=== PATIENT | male | born 1945 | race Caucasian/White ===

== ENCOUNTER 2019-07-01 12:05 | Outpatient (CLI) | payer MEDICARE, SELFPAY ==
[2019-07-01 12:17] LABS: Basophils Absolute Auto 0.02 K/mm3 (0.00-0.10); Basophils Percent Auto 0.3 % (0.0-1.0); Eosinophils Absolute Auto 0.09 K/mm3 (0.02-0.50); Eosinophils Percent Auto 1.2 % (1.0-6.0); Hematocrit 42.9 % (37.0-46.0); Hemoglobin 14.5 g/dL (12.4-15.3); Immature Granulocyte Absolute 0.05 K/mm3 (0.00-0.00); Immature Granulocyte Percent A 0.7 % (0.0-0.0); Lymphocytes Absolute Auto 1.18 K/mm3 (1.10-4.50); Lymphocytes Percent Auto 15.4 % (18.0-42.0); Mean Corpuscular HGB Conc 33.8 g/dL (32.0-36.0); Mean Corpuscular Hemoglobin 28.4 pg (27.0-31.0); Mean Corpuscular Volume 84.1 fL (78.0-102.0); Mean Platelet Volume 9.8 fl (8.7-11.0); Monocytes Absolute Auto 0.73 K/mm3 (0.10-0.90); Monocytes Percent Auto 9.5 % (2.0-11.0); Neutrophils Absolute Auto 5.6 K/mm3 (1.7-7.2); Neutrophils Percent Auto 72.9 % (50.0-70.0); Platelet Count Result 194 K/mm3 (150-420); Red Cell Distribution Width 13.7 % (11.6-14.4); White Blood Count 7.7 K/mm3 (4.8-10.8)
[2019-07-01 13:15] LABS: Alanine Aminotransferase 35 U/L (16-63); Albumin Level 3.5 g/dL (3.4-5.0); Alkaline Phosphatase 101 U/L (46-116); Aspartate Amino Transferase 17 U/L (15-37); Bilirubin Direct 0.2 mg/dL (0-0.2); Bilirubin,Total 1.1 mg/dL (0.00-1.00); Total Protein 6.7 g/dL (6.4-8.2)
== END 2019-07-01 12:06 | disposition home or self-care (01) ==
LOC: CHSLAB 12:08
PROVIDERS: PCP Family Medicine; Visit Provider Internal Medicine Gastroenterology
DX: Z79.899 Other long term (current) drug therapy (principal)
CPT/HCPCS: 36415; 80076; 85025

== ENCOUNTER 2019-10-20 09:42 | Outpatient (CLI) | payer MEDICARE, SELFPAY ==
[2019-10-20 10:57] LABS: Alanine Aminotransferase 25 U/L (16-63); Albumin Level 3.5 g/dL (3.4-5.0); Alkaline Phosphatase 67 U/L (46-116); Anion Gap 9 mmol/L (8-16); Aspartate Amino Transferase 21 U/L (15-37); Blood Urea Nitrogen 12 mg/dL (7-18); Calcium 8.5 mg/dL (8.5-10.1); Carbon Dioxide 26 mmol/L (21-32); Chloride 106 mmol/L (98-108); Estimated Glomerular Filt Rate > 60; Glucose 157 mg/dL (70-99); Osmolality Calculated 294 mOsm/kg (285-295); Potassium 4.6 mmol/L (3.5-5.1); Sodium 141 mmol/L (136-145); Total Protein 6.7 g/dL (6.4-8.2)
[2019-10-20 11:00] LABS: Hemoglobin A1C 7.1 % (<5.7)
== END 2019-10-20 09:43 | disposition home or self-care (01) ==
LOC: CHSLAB 09:44
PROVIDERS: PCP Family Medicine; Visit Provider Family Medicine
DX: E11.9 Type 2 diabetes mellitus without complications (principal); R17 Unspecified jaundice; E78.5 Hyperlipidemia, unspecified
CPT/HCPCS: 36415; 80053; 83036

== ENCOUNTER 2020-12-14 08:12 | Outpatient (CLI) | payer MEDICARE, SELFPAY ==
[2020-12-14 08:29] LABS: Basophils Absolute Auto 0.02 K/mm3 (0.00-0.10); Basophils Percent Auto 0.4 % (0.0-1.0); Eosinophils Absolute Auto 0.09 K/mm3 (0.02-0.50); Eosinophils Percent Auto 1.8 % (1.0-6.0); Hematocrit 38.7 % (37.0-46.0); Hemoglobin 12.6 g/dL (12.4-15.3); Immature Granulocyte Absolute 0.01 K/mm3 (0.00-0.00); Immature Granulocyte Percent A 0.2 % (0.0-0.0); Lymphocytes Absolute Auto 1.53 K/mm3 (1.10-4.50); Lymphocytes Percent Auto 31.3 % (18.0-42.0); Mean Corpuscular HGB Conc 32.6 g/dL (32.0-36.0); Mean Corpuscular Hemoglobin 26.1 pg (27.0-31.0); Mean Corpuscular Volume 80.3 fL (78.0-102.0); Mean Platelet Volume 10.7 fl (8.7-11.0); Monocytes Absolute Auto 0.58 K/mm3 (0.10-0.90); Monocytes Percent Auto 11.9 % (2.0-11.0); Neutrophils Absolute Auto 2.7 K/mm3 (1.7-7.2); Neutrophils Percent Auto 54.4 % (50.0-70.0); Platelet Count Result 178 K/mm3 (150-420); Red Blood Count 4.82 M/mm3 (4.70-6.10); Red Cell Distribution Width 15.3 % (11.6-14.4); White Blood Count 4.9 K/mm3 (4.8-10.8)
[2020-12-14 08:58] LABS: Hemoglobin A1C 7.4 % (<5.7)
[2020-12-14 09:20] LABS: Ferritin 23 ng/mL (26-388)
== END 2020-12-14 08:13 | disposition home or self-care (01) ==
LOC: CHSLAB 08:18
PROVIDERS: PCP Family Medicine; Visit Provider Nurse Practitioner Family
DX: D50.0 Iron deficiency anemia secondary to blood loss (chronic) (principal); Z79.899 Other long term (current) drug therapy
CPT/HCPCS: 36415; 82728; 83036; 85025

== ENCOUNTER 2021-02-12 10:39 | Outpatient (CLI) | payer MEDICARE, SELFPAY ==
[2021-02-12 11:00] LABS: Hematocrit 42.3 % (37.0-46.0); Hemoglobin 14.3 g/dL (12.4-15.3); Mean Corpuscular HGB Conc 33.8 g/dL (32.0-36.0); Mean Corpuscular Volume 79.8 fL (78.0-102.0); Mean Platelet Volume 10.4 fl (8.7-11.0); Platelet Count Result 207 K/mm3 (150-420); Red Cell Distribution Width 17.1 % (11.6-14.4); White Blood Count 5.8 K/mm3 (4.8-10.8)
[2021-02-12 11:13] LABS: Hemoglobin A1C 7.2 % (<5.7)
[2021-02-12 11:42] LABS: Alanine Aminotransferase 29 U/L (16-63); Albumin Level 3.6 g/dL (3.4-5.0); Alkaline Phosphatase 79 U/L (46-116); Anion Gap 11 mmol/L (8-16); Aspartate Amino Transferase 15 U/L (15-37); Bilirubin,Total 0.8 mg/dL (0.00-1.00); Blood Urea Nitrogen 16 mg/dL (7-18); Calcium 8.8 mg/dL (8.5-10.1); Carbon Dioxide 26 mmol/L (21-32); Chloride 104 mmol/L (98-108); Cholesterol 194 mg/dL (0-200); Estimated Glomerular Filt Rate > 60; Ferritin 50 ng/mL (26-388); Glucose 136 mg/dL (70-99); HDL Direct 64 mg/dL (40-60); Iron 73 ug/dL (65-175); LDL Cholesterol Calculated 111 mg/dL (<130); Osmolality Calculated 295 mOsm/kg (285-295); Percent Iron Saturation 20 % (12-57); Potassium 4.3 mmol/L (3.5-5.1); Sodium 141 mmol/L (136-145); Triglycerides 97 mg/dL (0-150)
== END 2021-02-12 10:40 | disposition home or self-care (01) ==
LOC: CHSLAB 10:41
PROVIDERS: PCP Family Medicine; Visit Provider Nurse Practitioner
DX: D50.9 Iron deficiency anemia, unspecified (principal); M47.816 Spondylosis without myelopathy or radiculopathy, lumbar region; E78.9 Disorder of lipoprotein metabolism, unspecified; Z00.00 Encounter for general adult medical examination without abnormal findings; Z12.5 Encounter for screening for malignant neoplasm of prostate; E11.9 Type 2 diabetes mellitus without complications
CPT/HCPCS: 36415; 80053; 80061; 82728; 83036; 83540; 83550; 84153; 85027; G0103

== ENCOUNTER 2021-03-05 12:38 | Outpatient (CLI) | payer MEDICARE, SELFPAY ==
[2021-03-05 12:59] LABS: Creatinine Urine 27.26 mg/dL (40-278); MALB Creatinine Ratio 47.6 mg/g (0-30); Microalbumin Urine Random < 13.0 mg/L
== END 2021-03-05 12:39 | disposition home or self-care (01) ==
LOC: CHSLAB 12:39
PROVIDERS: PCP Family Medicine; Visit Provider Family Medicine
DX: E11.9 Type 2 diabetes mellitus without complications (principal)
CPT/HCPCS: 82043

== ENCOUNTER 2021-10-17 09:23 | Outpatient (CLI) | payer MEDICARE, SELFPAY ==
[2021-10-17 09:55] LABS: Hemoglobin A1C 6.2 % (<5.7)
[2021-10-17 10:39] LABS: Cholesterol 117 mg/dL (0-200); HDL Direct 50 mg/dL (40-60); LDL Cholesterol Calculated 49 mg/dL (<130); Triglycerides 91 mg/dL (0-150); Vitamin B12 439 pg/mL (193-986)
[2021-10-25 10:51] LABS: Testosterone Total 584 ng/dL (250-1100)
== END 2021-10-17 09:24 | disposition home or self-care (01) ==
PROVIDERS: PCP Family Medicine; Visit Provider Family Medicine
DX: E78.5 Hyperlipidemia, unspecified (principal); E11.9 Type 2 diabetes mellitus without complications; E53.8 Deficiency of other specified B group vitamins
CPT/HCPCS: 36415; 80061; 82607; 83036; 84403

== ENCOUNTER 2022-02-19 08:28 | Outpatient (CLI) | payer MEDICARE, SELFPAY ==
[2022-02-19 08:42] LABS: Basophils Absolute Auto 0.02 K/mm3 (0.00-0.10); Basophils Percent Auto 0.4 % (0.0-1.0); Eosinophils Absolute Auto 0.09 K/mm3 (0.02-0.50); Eosinophils Percent Auto 1.7 % (1.0-6.0); Hematocrit 40.8 % (37.0-46.0); Hemoglobin 14.2 g/dL (12.4-15.3); Immature Granulocyte Absolute 0.01 K/mm3 (0.00-0.00); Immature Granulocyte Percent A 0.2 % (0.0-0.0); Lymphocytes Absolute Auto 1.67 K/mm3 (1.10-4.50); Lymphocytes Percent Auto 32.2 % (18.0-42.0); Mean Corpuscular HGB Conc 34.8 g/dL (32.0-36.0); Mean Corpuscular Hemoglobin 30.9 pg (27.0-31.0); Mean Corpuscular Volume 88.7 fL (78.0-102.0); Monocytes Absolute Auto 0.69 K/mm3 (0.10-0.90); Monocytes Percent Auto 13.3 % (2.0-11.0); Neutrophils Absolute Auto 2.7 K/mm3 (1.7-7.2); Neutrophils Percent Auto 52.2 % (50.0-70.0); Platelet Count Result 203 K/mm3 (150-420); White Blood Count 5.2 K/mm3 (4.8-10.8)
[2022-02-19 09:08] LABS: Hemoglobin A1C 6.4 % (<5.7)
[2022-02-19 09:30] LABS: Alanine Aminotransferase 25 U/L (16-63); Albumin Level 3.6 g/dL (3.4-5.0); Alkaline Phosphatase 63 U/L (46-116); Anion Gap 8 mmol/L (8-16); Aspartate Amino Transferase 18 U/L (15-37); Blood Urea Nitrogen 12 mg/dL (7-18); Calcium 8.6 mg/dL (8.5-10.1); Carbon Dioxide 27 mmol/L (21-32); Chloride 108 mmol/L (98-108); Cholesterol 135 mg/dL (0-200); Estimated Glomerular Filt Rate > 60; Glucose 111 mg/dL (70-99); HDL Direct 56 mg/dL (40-60); LDL Cholesterol Calculated 63 mg/dL (<130); Osmolality Calculated 296 mOsm/kg (285-295); Potassium 4.1 mmol/L (3.5-5.1); Prostate Specific Antigen 0.8 ng/mL (< OR = 4.0); Sodium 143 mmol/L (136-145); Total Protein 6.5 g/dL (6.4-8.2); Triglycerides 81 mg/dL (0-150)
== END 2022-02-19 08:29 | disposition home or self-care (01) ==
LOC: CHSLAB 08:30
PROVIDERS: PCP Family Medicine; Visit Provider Physician Assistant Medical
DX: E11.9 Type 2 diabetes mellitus without complications (principal); Z12.5 Encounter for screening for malignant neoplasm of prostate
CPT/HCPCS: 36415; 80053; 80061; 83036; 84153; 85025; G0103

== ENCOUNTER 2022-06-02 09:29 | Outpatient (CLI) | payer MEDICARE, SELFPAY ==
[2022-06-02 10:32] LABS: Prostate Specific Antigen 1.2 ng/mL (< OR = 4.0)
== END 2022-06-02 09:30 | disposition home or self-care (01) ==
LOC: CHSLAB 09:31
PROVIDERS: PCP Family Medicine; Visit Provider Family Medicine
DX: Z12.5 Encounter for screening for malignant neoplasm of prostate (principal)
CPT/HCPCS: 36415; 84153; G0103

== ENCOUNTER 2022-12-16 12:09 | Outpatient (CLI) | payer MEDICARE, SELFPAY ==
--- NOTE | ~2022-12-16 | XR_ITS ---
Clinical Indication: Cough PA and lateral views of the chest: Comparison: 07/18/2016 Findings: There is vague hazy opacity in the right upper lobe. Stable calcified lymph node or nodule along the right paratracheal stripe.. Cardiomediastinal silhouette is within normal limits. Bones an d soft tissues are unremarkable. Impression: Hazy vague opacity in the right upper lobe, suspicious for focal pneumonia. Reviewed, dictated and finalized at location M. Impression: Hazy vague opacity in the right upper lobe, suspicious for focal pneumonia.
[2022-12-16 12:27] LABS: Basophils Absolute Auto 0.03 K/mm3 (0.00-0.10); Basophils Percent Auto 0.4 % (0.0-1.0); Eosinophils Absolute Auto 0.02 K/mm3 (0.02-0.50); Eosinophils Percent Auto 0.3 % (1.0-6.0); Hematocrit 40.2 % (37.0-46.0); Hemoglobin 13.6 g/dL (12.4-15.3); Immature Granulocyte Absolute 0.03 K/mm3 (0.00-0.00); Immature Granulocyte Percent A 0.4 % (0.0-0.0); Lymphocytes Absolute Auto 1.52 K/mm3 (1.10-4.50); Lymphocytes Percent Auto 21.3 % (18.0-42.0); Mean Corpuscular HGB Conc 33.8 g/dL (32.0-36.0); Mean Corpuscular Hemoglobin 30.6 pg (27.0-31.0); Mean Corpuscular Volume 90.5 fL (78.0-102.0); Mean Platelet Volume 9.5 fl (8.7-11.0); Monocytes Absolute Auto 0.65 K/mm3 (0.10-0.90); Monocytes Percent Auto 9.1 % (2.0-11.0); Neutrophils Absolute Auto 4.9 K/mm3 (1.7-7.2); Neutrophils Percent Auto 68.5 % (50.0-70.0); Platelet Count Result 320 K/mm3 (150-420); Red Blood Count 4.44 M/mm3 (4.70-6.10); Red Cell Distribution Width 13.5 % (11.6-14.4); White Blood Count 7.2 K/mm3 (4.8-10.8)
[2022-12-16 13:16] LABS: Alanine Aminotransferase 25 U/L (16-63); Albumin Level 3.3 g/dL (3.4-5.0); Alkaline Phosphatase 65 U/L (46-116); Anion Gap 9 mmol/L (8-16); Aspartate Amino Transferase 19 U/L (15-37); Blood Urea Nitrogen 18 mg/dL (7-18); Carbon Dioxide 27 mmol/L (21-32); Chloride 106 mmol/L (98-108); Cholesterol 134 mg/dL (0-200); Estimated Glomerular Filt Rate > 60; Glucose 107 mg/dL (70-99); HDL Direct 58 mg/dL (40-60); LDL Cholesterol Calculated 65 mg/dL (<130); Osmolality Calculated 295 mOsm/kg (285-295); Potassium 4.3 mmol/L (3.5-5.1); Prostate Specific Antigen 1.5 ng/mL (< OR = 4.0); Sodium 142 mmol/L (136-145); Total Protein 6.4 g/dL (6.4-8.2); Triglycerides 55 mg/dL (0-150)
== END 2022-12-16 12:10 | disposition home or self-care (01) ==
LOC: CHSLAB 12:11
PROVIDERS: PCP Family Medicine; Visit Provider Family Medicine
DX: E11.9 Type 2 diabetes mellitus without complications (principal); E78.00 Pure hypercholesterolemia, unspecified; K51.90 Ulcerative colitis, unspecified, without complications; Z12.5 Encounter for screening for malignant neoplasm of prostate; R05.9 Cough, unspecified; R91.8 Other nonspecific abnormal finding of lung field
CPT/HCPCS: 36415; 71046; 80053; 80061; 84153; 85025; G0103

== ENCOUNTER 2024-05-20 10:05 | Outpatient (CLI) | payer MEDICARE, SELFPAY ==
[2024-05-20 10:18] LABS: Basophils Absolute Auto 0.01 K/mm3 (0.00-0.10); Basophils Percent Auto 0.2 % (0.0-1.0); Eosinophils Absolute Auto 0.03 K/mm3 (0.02-0.50); Eosinophils Percent Auto 0.5 % (1.0-6.0); Hematocrit 37.3 % (37.0-46.0); Hemoglobin 12.2 g/dL (12.4-15.3); Immature Granulocyte Absolute 0.03 K/mm3 (0.00-0.00); Immature Granulocyte Percent A 0.5 % (0.0-0.0); Lymphocytes Absolute Auto 1.09 K/mm3 (1.10-4.50); Lymphocytes Percent Auto 16.7 % (18.0-42.0); Mean Corpuscular HGB Conc 32.7 g/dL (32-36); Mean Corpuscular Hemoglobin 29.6 pg (27.0-31.0); Mean Corpuscular Volume 90.5 fL (78.0-102.0); Mean Platelet Volume 9.9 fl (8.7-11.0); Monocytes Percent Auto 9.2 % (2.0-11.0); Neutrophils Absolute Auto 4.77 K/mm3 (1.70-7.20); Neutrophils Percent Auto 72.9 % (50.0-70.0); Platelet Count Result 194 K/mm3 (150-420); Red Blood Count 4.12 M/mm3 (4.70-6.10); Red Cell Distribution Width 14.4 % (11.6-14.4); White Blood Count 6.5 K/mm3 (4.8-10.8)
[2024-05-20 10:28] LABS: Hemoglobin A1C 6.2 % (<5.7)
[2024-05-20 11:06] LABS: Alanine Aminotransferase 17 U/L (16-63); Albumin Level 3.7 g/dL (3.4-5.0); Alkaline Phosphatase 91 U/L (46-116); Anion Gap 9 mmol/L (4-12); Aspartate Amino Transferase 13 U/L (15-37); Bilirubin,Total 1.5 mg/dL (0.00-1.00); Blood Urea Nitrogen 16 mg/dL (7-18); Calcium 8.7 mg/dL (8.5-10.1); Carbon Dioxide 28 mmol/L (21-32); Chloride 106 mmol/L (98-108); Cholesterol 138 mg/dL (0-200); Estimated Glomerular Filt Rate > 60; Glucose 107 mg/dL (70-99); HDL Direct 75 mg/dL (40-60); LDL Cholesterol Calculated 57 mg/dL (<130); Osmolality Calculated 297 mOsm/kg (285-295); Potassium 4.1 mmol/L (3.5-5.1); Sodium 143 mmol/L (136-145); Total Protein 6.6 g/dL (6.4-8.2); Triglycerides 28 mg/dL (0-150)
--- OUTSIDE RECORDS SUMMARY | 2024-05-20 11:12 | XMS_ITS | Clinical Summary ---
Author Organization [facility] Address [address] [place] [address] Care Team Providers Care Antisqueak Filler Name Role Phone Leonard Cage MD Primary Care Provider [phone] Allergies No known active allergies Medications metFORMIN 500 MG tablet Take 500 mg by mouth 2 (two) times daily with meals. Active atorvastatin 80 MG tablet Take 80 mg by mouth daily. Active OZEMPIC, 0.25 OR 0.5 MG/DOSE, 2 MG/3ML injection (PEN) INJECT 0.5MG under the skin every week 08/27/2023 Active Active Problems Problem Noted Date Diagnosed Date Other ulcerative colitis wit h rectal bleeding ([facility]) 01/05/2017 Immunizations Name Administration Dates Next Due Tdap (Boostrix) 10/15/2023 Family History Medical History Relation Comments Diabetes Brother Diabetes Father Heart Disease Father Diabetes Mother Heart Disease Mother Diabetes Sister Diabetes Son Relation Status Comments Brother Father Mother Sister Son Social History Tobacco Use Types Packs/Day Years Used Date Smoking Tobacco: Former Cigarettes 2 25 1 03/1962 - 01/1988 Smokeless Tobacco: Never Alcohol Use Standard Drinks/Week Comments Yes 3.3 (1 standard drink = 0.6 oz p ure alcohol) 2 to 4 cans a month Sex and Gender Information Value Date Recorded Sex Assigned at Not on file Legal Sex Male 4:27 PM CDT Gender Identity Not on file Sexual Orientation Not on file Last Filed Vital Signs Vital Sign Reading Time Taken Comments Blood Pressure 199/83 10/15/2023 8:15 PM CDT Pulse 86 10/15/2023 7:53 PM CDT Temperature 37.3 C (99.1 F) 10/15/2023 7:53 PM CDT Respiratory Rate 18 10/15/2023 7:53 PM CDT Oxygen Saturation 99% 10/15/2023 8:15 PM CDT Inhaled Oxygen Concentration - - Weight 102.5 kg (225 lb 15.5 oz) 10/15/2023 7:53 PM CDT Height 177.8 cm (5' 10 ) 10/15/2023 7:53 PM CDT Body Mass Index 32.42 10/15/2023 7:53 PM CDT Plan of Treatment Health Maintenance Due Date Last Done Comments Hepatitis C 1963 Annual Medicare Wellness Visit 2009 Zoster Vaccines (2 of 3) 02/24/2017 017, 10/17/2011 Pneumococcal Vaccine: 65+ Years (2 of 2 - PCV) 10/16/2017 10/16/2016, 10/17/2015 RSV Immunization or 60+ Years (1 - 1-dose 75+ series) 05/10/2019 COVID-19 Vaccine (2 - 2023-2 5 season) 2023 05/25/2020 Influenza Adult (#1) 2023 12/26/2020, 12/07/2018, 12/30/2016 DTaP, Tdap and Td Vaccines ( 3 - Td or Tdap) 10/14/2033 10/15/2023, 12/03/2017 Colorectal Cancer Screening Colonoscopy (10 Years) Discontinued 05/04/2018 Meningococcal B Vaccine Aged Out No l onger eligible based on patient's age to complete this topic Meningococcal Vaccine Aged Out No sarmad ricardo eligible based on patient's age to complete this topic RSV Immunizations Under 20 Months Aged Out No longer eligible based on patient's age to complete this topic Procedures Procedure Name Priority Date/Time Associated Diagnosis Comments COLONOSCOPY Routine 05/04/2018 10:57 AM MORTUARY BEAUTICIAN from Last 3 Months or Most Recently Relevant to Health Maintenance Insurance [facility] Care Teams Antisqueak Filler Relationship Specialty Start Date End Date Leonard Cage MD PCP - General 09/16/16
--- OUTSIDE RECORDS SUMMARY | 2024-05-20 11:12 | XMS_ITS | Encounter Summary ---
Author Organization [facility] Facility Care Team Providers Care Datawarehouse Developer Name Role Phone Leonard Cage MD Primary Care Provider [phone] Leonard Cage MD Primary Care Provider [phone] Leonard Cage MD Unavailable [phone] Luis Alejandro DPM Primary Care Provider [phone] Encounter Details Date Type Department Care Team (Latest Contact Info) Description 05/14/2018 Orders Only [facility] CLINCONV ProviderKay MD [address] [place] [address] Social History Tobacco Use Types Packs/Day Years Used Date Smoking Tobacco: Never Assessed Sex and Gender Information Value Date Recorded Sex Assigned at Not on file Legal Sex Male 12:24 AM TUBE KNITTER Gender Identity Male 06/09/2021 8:03 AM CDT Sexual Orientation Bisexual 06/09/2021 8: 03 AM CDT documented as of this encounter Plan of Treatment Not on file documented as of this encounter Procedures Procedure Name Priority Date/Time Associated Diagnosis Comments COLONOSCOPY - SCAN 05/14/2018 12 :00 AM CDT SCAN - LABS 05/14/2018 12:00 AM CDT documented in this encounter Results * COLONOSCOPY - SCAN (05/14/2018 12:00 AM CDT) Narrative 05/14/2018 12:00 AM CDT Ordered by an unspecified provider. Historical Provider Final Res ult * SCAN - LABS (05/14/2018 12:00 AM CDT) Narrative 05/14/2018 12:00 AM CDT Ordered by an unspecified provider. Historical Provider Final Res ult documented in this encounter Visit Diagnoses Not on filedocumented in this encounter Care Teams Datawarehouse Developer Relationship Specialty Start Date End Date Leonard Cage MD PCP - General 07/07/17 08/04/18 Leonard Cage MD PCP - General Family Medicine 08/05/18 10/27/18 Luis Alejandro DPM [address] [place] [address] PCP - General Orthotics 10/28/18 03/31/19 Leonard Cage MD 08/05/18 08/05/18 documented as of this encounter
--- OUTSIDE RECORDS SUMMARY | 2024-05-20 11:12 | XMS_ITS | Encounter Summary ---
Author Organization [facility] Facility Care Team Providers Care Restaurant Host/Hostess Name Role Phone Leonard Cage MD Primary Care Provider [phone] Leonard Cage MD Primary Care Provider [phone] Leonard Cage MD Unavailable [phone] Luis Alejandro DPM Primary Care Provider [phone] Encounter Details Date Type Department Care Team (Latest Contact Info) Description 01/25/2018 Orders Only [facility] CLINCONV Provider, MD Kay [address] [place] [address] Social History Tobacco Use Types Packs/Day Years Used Date Smoking Tobacco: Never Assessed Sex and Gender Information Value Date Recorded Sex Assigned at Not on file Legal Sex Male 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 Historical Provider Final Res ult * SCAN - LABS (01/25/2018 12:00 AM ANALOG CIRCUIT DESIGNER) Narrative 01/25/2018 12:00 AM ANALOG CIRCUIT DESIGNER Ordered by an unspecified provider. us Historical Provider MD Samayoa Res ult documented in this encounter Visit Diagnoses Not on filedocumented in this encounter Care Teams Restaurant Host/Hostess Relationship Specialty Start Date End Date Leonard Cage MD PCP - General 07/07/17 08/04/18 Leonard Cage MD PCP - General Family Medicine 08/05/18 10/27/18 Luis Alejandro DPM [address] [place] [address] PCP - General Orthotics 10/28/18 03/31/19 Leonard Cage MD 08/05/18 08/05/18 documented as of this encounter
--- OUTSIDE RECORDS SUMMARY | 2024-05-20 11:12 | XMS_ITS ---
Author Organization Unknown Address [address] [place] [phone] Phone Care Team Providers Care Clinical Research Nurse Name Role Phone BARBARA Null Attending Unavailable CARRIE MORRIS Primary Unavailable Immunization Immunization Date Status Additional Notes Code Code System Tdap 12/03/2017 Completed 115 CVX Tdap 10/15/2023 Completed 115 CVX Influenza, high-dose, quadrivalent, PF 01/02/2020 Completed 197 CVX Influenza, adjuvanted, quadrivalent, PF 12/26/2020 Completed 205 CVX COVID-19 vaccine, vector-nr, rS-Ad26, PF, 0.5 mL 05/25/2020 Completed 212 CVX Results BEDSIDE GLUCOSE - Collect Da te/Time: 12/10/2023 10:54 [facility] ID: [id number] [address] [place] [address], [id number] LOINC: 99205-4 Test Value Unit Reference Range Code Code System Flag BEDSIDE GLUCOSE 140 mg/dl L=74 H=106 55554-8 LOINC H BEDSIDE GLUCOSE - Collect Da te/Time: 12/10/2023 09:51 [facility] ID: [id number] [address] [place] [address], [id number] LOINC: 29515-3 Test Value Unit Reference Range Code Code System Flag BEDSIDE GLUCOSE 130 mg/dl L=74 H=106 04547-5 LOINC H Social History Type Status Start Date End Date Code Code Syst em Smoking History Former smoker 2323286 SNOMED CT Sex Male Vital Signs Vital Sign Value Unit Carbon Value Carbon Unit Date/Time Recent/Initial? Code Code System Body Mass Index 26.97 kg/m2 12/10/2023 08:49 Most Recent 79740 -5 LOINC Body Mass Index 28.27 kg/m2 12/03/2023 13:34 Initial 41227 -5 LOINC Systolic Blood Pressure 189 mm[Hg] 12/10/2023 08:53 Initial 8480- 6 LOINC Diastolic Blood Pressure 90 mm[Hg] 12/10/2023 08:53 Initial 8462- 4 LOINC Body Surface Area 2.05 m2 12/10/2023 08:49 Most Recent 3140- 1 INC Body Surface Area 2.10 m2 12/03/2023 13:34 Initial 3140- 1 LOINC Height 177.800 0 cm 70.00 in 12/10/2023 08:49 Most Recent 8302- 2 LOINC Height 177.800 0 cm 70.00 in 12/03/2023 13:34 Initial 8302- 2 INC O2 Saturation 100 % 2023 08:53 Initial 06010 -5 INC Pulse 56.0 /min 12/10/2023 08:53 Initial 8867- 4 INC Respiration 16 /min 12/10/19 08:53 Initial 9279- 1 INC Temperature 36.7 Basia 98.0 F 12/10/19 08:53 Initial 8310- 5 INC Weight 85.28 kg 188.00 lbs 12/10/2023 08:49 Most Recent 67010 -7 INC Weight 89.36 kg 197.00 lbs 12/03/2023 13:34 Initial 96724 -7 [facility] Medications Medication Start Date End Date Route Frequency Dose Code Code System Medication Instructions Home Meds Atorvastatin Calcium 80MG Oral Tablet 06/08/2020 Unknown ORAL ONCE A DAY 80 MILLIGRAMS 509794 RxNorm TAKE 80 MILLIGRAMS ORAL ONCE A DAY Vitamin D3 10 MCG Oral Tablet 08/27/2023 Unknown ORAL ONCE A DAY 10 MCG 246614 RxNorm TAKE 10 MCG ORAL ONCE A DAY Vitamin C 1000MG Oral Tablet 12/10/2023 Unknown ORAL ONCE A DAY 1000 MILLIGRAMS 799939 RxNorm TAKE 1000 MILLIGRAMS ORAL ONCE A DAY metFORMIN HCl 500MG Oral Tablet 12/10/2023 Unknown ORAL ONCE A DAY 500 MILLIGRAMS 228405 RxNorm TAKE 500 MILLIGRAMS ORAL ONCE A DAY Hospital Discharge Instructions Should you have any questions prior to discharge, please contact a member of your healthcare team. If you have left the hospital and have any questions, please contact your primary care physician. Reason For Referral No Data Found Procedures Procedure Name Date Status Code Code Syste m Sigmoidoscopy, flexible; lashawn gnostic, including collection of specimen(s) b 12/10/2023 completed 28009 CPT Allergies and Adverse Reactions Allergy Substance Reaction Severity Start Date Concern Status Co de Code System ASPIRIN Active 1191 RxNorm ASPIRIN Active 1191 RxNorm QUINAPRIL Active 42983 RxNorm QUINAPRIL Active 05965 RxNorm No Known Drug Allergies Active 863684823 SNOMED-CT No Known Drug Allergies Active 464365257 SNOMED-CT No Known Allergies Active 021847451 SNMister Mario-CT Plan of Treatment Colonoscopy 08/27/2023 Sigmoidoscopy Flexible 12/10/2023 Encounters Encounter Diagnosis Start Date Code Code Sys tem Ulcerative colitis, unspecified, without complications 12/10/2023 SNOMED-CT Personal Care Team Section Performer Name Performer Role Active Date Inactive Da te
--- OUTSIDE RECORDS SUMMARY | 2024-05-20 11:12 | XMS_ITS | Encounter Summary ---
Author Organization [facility] Facility Care Team Providers Care Carding Utility Tender Name Role Phone Leonard Cage MD Primary Care Provider [phone] Leonard Cage MD Primary Care Provider [phone] Leonard Cage MD Unavailable [phone] Luis Alejandro DPM Primary Care Provider [phone] Encounter Details Date Type Department Care Team (Latest Contact Info) Description 04/19/2018 Orders Only [facility] CLINCONV ProviderKay MD [address] [place] [address] Social History Tobacco Use Types Packs/Day Years Used Date Smoking Tobacco: Never Assessed Sex and Gender Information Value Date Recorded Sex Assigned at Not on file Legal Sex Male 12:24 AM CLERGY MEMBER Gender Identity Male 06/09/2021 8:03 AM CDT Sexual Orientation Bisexual 06/09/2021 8: 03 AM CDT documented as of this encounter Plan of Treatment Not on file documented as of this encounter Procedures Procedure Name Priority Date/Time Associated Diagnosis Comments SCAN - LABS 04/23/2018 12:00 AM CLERGY MEMBER SCAN - LABS 04/20/2018 12:00 AM CLERGY MEMBER SCAN - LABS 04/19/2018 12:00 AM CLERGY MEMBER SCAN - LABS 04/19/2018 12:00 AM CLERGY MEMBER documented in this encounter Results * SCAN - LABS (04/23/2018 12:00 AM CLERGY MEMBER) Narrative 04/23/2018 12:00 AM CLERGY MEMBER Ordered by an unspecified provider. Historical Provider MD Final Res ult * SCAN - LABS (04/20/2018 12:00 AM CLERGY MEMBER) Narrative 04/20/2018 12:00 AM CLERGY MEMBER Ordered by an unspecified provider. Historical Provider Final Res ult * SCAN - LABS (04/19/2018 12:00 AM CLERGY MEMBER) Narrative 04/19/2018 12:00 AM CLERGY MEMBER Ordered by an unspecified provider. Historical Provider Final Res ult * SCAN - LABS (04/19/2018 12:00 AM CLERGY MEMBER) Narrative 04/19/2018 12:00 AM CLERGY MEMBER Ordered by an unspecified provider. Historical Provider Final Res ult documented in this encounter Visit Diagnoses Not on filedocumented in this encounter Care Teams Carding Utility Tender Relationship Specialty Start Date End Date Leonard Cage MD PCP - General 07/07/17 08/04/18 Leonard Cage MD PCP - General Family Medicine 08/05/18 10/27/18 Luis Alejandro DPM [address] [place] [address] PCP - General Orthotics 10/28/18 03/31/19 Leonard Cage MD 08/05/18 08/05/18 documented as of this encounter
--- OUTSIDE RECORDS SUMMARY | 2024-05-20 11:12 | XMS_ITS | Encounter Summary ---
Author Organization [facility] Facility Care Team Providers Care Loading Machine Adjuster Name Role Phone Leonard Cage MD Primary Care Provider [phone] Leonard Cage MD Primary Care Provider [phone] Leonard Cage MD Unavailable [phone] Luis Alejandro DPM Primary Care Provider [phone] Encounter Details Date Type Department Care Team (Latest Contact Info) Description 05/01/2018 Orders Only [facility] CLINCONV Provider, MD Kay [address] [place] [address] Social History Tobacco Use Types Packs/Day Years Used Date Smoking Tobacco: Never Assessed Sex and Gender Information Value Date Recorded Sex Assigned at Not on file Legal Sex Male 12:24 AM RADIO INTERFERENCE TROUBLE SHOOTER Gender Identity Male 06/09/2021 8:03 AM CDT Sexual Orientation Bisexual 06/09/2021 8: 03 AM CDT documented as of this encounter Plan of Treatment Not on file documented as of this encounter Procedures Procedure Name Priority Date/Time Associated Diagnosis Comments SCAN - LABS 05/03/2018 12:00 AM RADIO INTERFERENCE TROUBLE SHOOTER documented in this encounter Results * SCAN - LABS (05/03/2018 12:00 AM RADIO INTERFERENCE TROUBLE SHOOTER) Narrative 05/03/2018 12:00 AM RADIO INTERFERENCE TROUBLE SHOOTER Ordered by an unspecified provider. us Historical Provider Final Res ult documented in this encounter Visit Diagnoses Not on filedocumented in this encounter Care Teams Loading Machine Adjuster Relationship Specialty Start Date End Date Leonard Cage MD PCP - General 07/07/17 08/04/18 Leonard Cage MD PCP - General Family Medicine 08/05/18 10/27/18 Luis Alejandro DPM [address] [place] [address] PCP - General Orthotics 10/28/18 03/31/19 Leonard Cage MD 08/05/18 08/05/18 documented as of this encounter
--- OUTSIDE RECORDS SUMMARY | 2024-05-20 11:13 | XMS_ITS | Encounter Summary ---
Author Organization [facility] Facility Care Team Providers Care Music Pastor Name Role Phone Leonard Cage MD Primary Care Provider [phone] Leonard Cage MD Primary Care Provider [phone] Leonard Cage MD Unavailable [phone] Luis Alejandro DPM Primary Care Provider [phone] Encounter Details Date Type Department Care Team (Latest Contact Info) Description 12/17/2017 Orders Only [facility] CLINCONV ProviderKay MD [address] [place] [address] Social History Tobacco Use Types Packs/Day Years Used Date Smoking Tobacco: Never Assessed Sex and Gender Information Value Date Recorded Sex Assigned at Not on file Legal Sex Male 12:24 AM RESOURCE ROOM TEACHER Gender Identity Male 06/09/2021 8:03 AM CDT Sexual Orientation Bisexual 06/09/2021 8: 03 AM CDT documented as of this encounter Plan of Treatment Not on file documented as of this encounter Procedures Procedure Name Priority Date/Time Associated Diagnosis Comments CARDIOLOGY REPORT 12/17/2017 12: 00 AM CDT documented in this encounter Results * CARDIOLOGY REPORT (12/17/2017 12:00 AM CDT) Anatomical Region Laterality Modality Other Narrative 12/17/2017 12:00 AM CDT Ordered by an unspecified provider. Historical Provider [facility] Final Result documented in this encounter Visit Diagnoses Not on filedocumented in this encounter Care Teams Music Pastor Relationship Specialty Start Date End Date Leonard Cage MD PCP - General 07/07/17 08/04/18 Leonard Cage MD PCP - General Family Medicine 08/05/18 10/27/18 Luis Alejandro DPM [address] [place] [address] PCP - General Orthotics 10/28/18 03/31/19 Leonard Cage MD 08/05/18 08/05/18 documented as of this encounter
--- OUTSIDE RECORDS SUMMARY | 2024-05-20 11:13 | XMS_ITS | Encounter Summary ---
Author Organization [facility] Facility Care Team Providers Care Quill Layer Name Role Phone Leonard Cage MD Primary Care Provider [phone] Leonard Cage MD Primary Care Provider [phone] Leonard Cage MD Unavailable [phone] Luis Alejandro DPM Primary Care Provider [phone] Encounter Details Date Type Department Care Team (Latest Contact Info) Description 01/07/2018 Orders Only [facility] CLINCONV ProviderKay MD [address] [place] [address] Social History Tobacco Use Types Packs/Day Years Used Date Smoking Tobacco: Never Assessed Sex and Gender Information Value Date Recorded Sex Assigned at Not on file Legal Sex Male 12:24 AM PICCOLO MECHANIC Gender Identity Male 06/09/2021 8:03 AM CDT Sexual Orientation Bisexual 06/09/2021 8: 03 AM CDT documented as of this encounter Plan of Treatment Not on file documented as of this encounter Procedures Procedure Name Priority Date/Time Associated Diagnosis Comments CARDIOLOGY REPORT 01/08/2018 12: 00 AM PICCOLO MECHANIC documented in this encounter Results * CARDIOLOGY REPORT (01/08/2018 12:00 AM PICCOLO MECHANIC) Anatomical Region Laterality Modality Other Narrative 01/08/2018 12:00 AM PICCOLO MECHANIC Ordered by an unspecified provider. Historical Provider [facility] Final Result documented in this encounter Visit Diagnoses Not on filedocumented in this encounter Care Teams Quill Layer Relationship Specialty Start Date End Date Leonard Cage MD PCP - General 07/07/17 08/04/18 Leonard Cage MD PCP - General Family Medicine 08/05/18 10/27/18 Luis Alejandro DPM [address] [place] [address] PCP - General Orthotics 10/28/18 03/31/19 Leonard Cage MD 08/05/18 08/05/18 documented as of this encounter
--- OUTSIDE RECORDS SUMMARY | 2024-05-20 11:13 | XMS_ITS ---
Author Organization Unknown Address [address] [place] [phone] Phone Care Team Providers Care Psychological Tests Sales Agent Name Role Phone CRISTI Jang Attending Unavailable CARRIE MORRIS Primary Unavailable Immunization Immunization Date Status Additional Notes Code Code System Tdap 12/03/2017 Completed 115 CVX Tdap 10/15/2023 Completed 115 CVX Influenza, high-dose, quadrivalent, PF 01/02/2020 Completed 197 CVX Influenza, adjuvanted, quadrivalent, PF 12/26/2020 Completed 205 CVX COVID-19 vaccine, vector-nr, rS-Ad26, PF, 0.5 mL 05/25/2020 Completed 212 CVX Social History Type Status Start Date End Date Code Code Syst em Smoking History Former smoker 6246012 SNOMED CT Sex Male Vital Signs Vital Sign Value Unit [place] Value [place] Unit Date/Time Recent/Initial? Code Code System Body Mass Index 28.12 kg/m2 02/17/2023 10:27 Initial 25767 -5 LOINC Systolic Blood Pressure 178 mm[Hg] 02/17/2023 10:26 Initial 8480- 6 LOINC Diastolic Blood Pressure 72 mm[Hg] 02/17/2023 10:26 Initial 8462- 4 LOINC Body Surface Area 2.10 m2 02/17/2023 10:27 Initial 3140- 1 LOINC Height 177.800 0 cm 70.00 in 02/17/2023 10:27 Initial 8302- 2 LOINC O2 Saturation 99 % 2022 10:26 Initial 46620 -5 LOINC Pulse 72.0 /min 02/17/2023 10:26 Initial 8867- 4 LOINC Respiration 22 /min 02/18/20 10:26 Initial 9279- 1 LOINC Temperature 36.7 Basia 98.1 F 12/19/20 23 10:26 Initial 8310- 5 [facility] Weight 88.90 kg 196.00 lbs 02/17/2023 10:27 Initial 35779 -7 [facility] Medications Medication Start Date End Date Route Frequency Dose Code Code System Medication Instructions Home Meds Atorvastatin Calcium 80MG Oral Tablet 06/08/2020 Unknown ORAL ONCE A DAY 80 MILLIGRAMS 020643 RxNorm TAKE 80 MILLIGRAMS ORAL ONCE A DAY metFORMIN HCl 500MG Oral Tablet, Extended Release 06/08/2020 08/12/19 24 ORAL TWICE A DAY 500 MILLIGRAMS 132818 RxNorm TAKE 500 MILLIGRAMS ORAL TWICE A DAY Remicade 100MG Intravenous Powder for Solution 12/25/2022 08/12/19 24 INTRAVE NOUS EVERY 8 WEEKS 100 MILLIGRAMS 196915 RxNorm 100 MILLIGRAMS INTRAVENOUS EVERY 8 WEEKS Budesonide 3MG Oral Capsule, Delayed Release 08/27/2023 12/03/19 24 ORAL THREE TIMES A DAY 3 MILLIGRAMS 3362441 RxNorm TAKE 3 MILLIGRAMS ORAL THREE TIMES A DAY Ozempic 0.25 MG or 0.5 MG Doses 2 MG/3 ML Subcutaneous Solution 08/27/2023 12/03/19 24 SUBCUTA NEOUS ONCE A WEEK 1 unit(s) 0325686 RxNorm INJECT INTO 1 EACH SUBCUTANEOUS ONCE A WEEK Vitamin D3 10 MCG Oral Tablet 08/27/2023 Unknown ORAL ONCE A DAY 10 MCG 390298 RxNorm TAKE 10 MCG ORAL ONCE A DAY metFORMIN HCl 500MG Oral Tablet 08/27/2023 12/03/19 24 ORAL TWICE A DAY 500 MILLIGRAMS 138643 RxNorm TAKE 500 MILLIGRAMS ORAL TWICE A DAY Cortenema 100MG/60ML Rectal Enema 08/27/2023 12/03/19 24 RECTAL AT BEDTIME 0.5 794439 RxNorm INSERT 0.5 RECTAL AT BEDTIME Vitamin C 1000MG Oral Tablet 12/10/2023 Unknown ORAL ONCE A DAY 1000 MILLIGRAMS 159892 RxNorm TAKE 1000 MILLIGRAMS ORAL ONCE A DAY metFORMIN HCl 500MG Oral Tablet 12/10/2023 Unknown ORAL ONCE A DAY 500 MILLIGRAMS 690426 RxNorm TAKE 500 MILLIGRAMS ORAL ONCE A DAY Hospital Discharge Instructions Should you have any questions prior to discharge, please contact a member of your healthcare team. If you have left the hospital and have any questions, please contact your primary care physician. Reason For Referral No Data Found Allergies and Adverse Reactions Allergy Substance Reaction Severity Start Date Concern Status Co de Code System ASPIRIN Active 1191 RxNorm ASPIRIN Active 1191 RxNorm QUINAPRIL Active 18231 RxNorm QUINAPRIL Active 66211 RxNorm No Known Drug Allergies Active 486982321 SNOMED-CT No Known Drug Allergies Active 726369940 SNOMED-CT No Known Allergies Active 018899088 SNO MED-CT Plan of Treatment Colonoscopy 08/27/2023 Sigmoidoscopy Flexible 12/10/2023 Encounters Encounter Diagnosis Start Date Code Code Sys tem Ulcerative colitis 02/17/2023 06745447 SNOMED-CT Personal Care Team Section Performer Name Performer Role Active Date Inactive Da ninfa
--- OUTSIDE RECORDS SUMMARY | 2024-05-20 11:13 | XMS_ITS | CONTINUITY OF CARE DOCUMENT ---
Author Name guero jack Address Unknown Organization [facility] Address [address] [place] [address] Phone [phone] Care Team Providers Care District Director Name Role Phone Kathleen AVALOS, Jose Unavailable ARTURO BUTLER MD Unavailable [phone] ARTURO BUTLER MD Unavailable [phone] PROBLEMS Condition Status Date Provider Notes B12 deficiency active Jose Wang MD HTN CONTROLLED;NEG DUPLEX,LABS PER PRIMARY active Jose Wang MD ISCHEMIA;100% OM RESIDIUAL POST STENTS 11, neg nuc 14 completed - Jose Wang MD HEMIBLOCK, LEFT ANTERIOR active Jose culver MD HEMATOCHEZIA;STOPPED ASA AND BETTER, PER PRIMARY active Jose Wang MD EDEMA;LEFT LEG FOR 6 MONTHS WILL CHAN completed - Jose Wang MD Diastolic dysfunction active Jose Wang MD AORTIC VALVE SCLEROSIS completed 3 - Jose Wang MD Family History of Hypertension: completed - Jose Wang MD IRON DEFICIENCY active Jose Wang MD Screening active Jose Wang MD Colitis active Jose Wang MD VENOUS INSUFFICIENCY;HAD ELVT, HELPED active Jose Wang MD ANEMIA;TO SEE PRIMARY completed - Jose Wang MD DIZZINESS AND FATIGUE; DUE TO EUGENE?, WILL CONSIDER PACER. completed - Jose Wang MD Tobacco use, quit active Jose Wang MD t oo remote to screen AAA;NEG DUPLEX completed - Jose Wang MD CHEST PAIN INFERIOR WALL ISCHEMIA ON STRESS TEST completed - Jose Wang MD ERECTILE DYSFUNCTION, ORGANIC active Jose Wang MD SNORING;DOSE NOT WANT SLEEP STUDY at home or with lab active Jose Wang MD LEFT ATRIAL ENLARGEMENT;MILD 2008 WITH NML LV completed - Jose Wang MD COUGH DUE TO ALFREDO INHIBITORS, HX OF active Jose Wang MD LOW HDL;COULD NOT AFFORD NIASPAN completed - Jose Wang MD Bradycardia;not due to meds active Jose Wang MD STENT - BARE METAL CORONARY TO RCA 2010 completed - Jose Wang MD CAD;NEG CAROTID active Jose Wang MD ANGINA PECTORIS NEC/NOS completed - Jose Wang MD OBESITY; active Jose Wang MD Hyperlipidemia active Patria Hardin RN DIABETES; active Ofe Lorenzo NP ENCOUNTERS Date Type Provider Location Encounter Diag nosis - In-person encounter Office Visit [facility] DIABETES; - In-person encounter Office Visit Jose Wang MD [place] [facility] OBESITY;AAA;NEG DUPLEXDiastolic dysfunctionAORTIC VALVE SCLEROSISScreening - In-person encounter Office Visit [facility] ISCHEMIA;100% OM RESIDIUAL POST STENTS 11, neg nuc 14Family History of Hypertension: - In-person encounter Office Visit [facility] Bradycardia;not due to medsTobacco use, quitColitisIRON DEFICIENCY - In-person encounter Office Visit [facility] HyperlipidemiaLOW HDL;COULD NOT AFFORD NIASPANANEMIA;TO SEE PRIMARYColitis - In-person encounter Office Visit [facility] SNORING;DOSE NOT WANT SLEEP STUDY at home or with lab - In-person encounter Office Visit Jose Wang MD [facility] OBESITY;EDEMA;LEFT LEG FOR 6 MONTHS WILL WUVENOUS INSUFFICIENCY;HAD ELVT, HELPEDDiastolic dysfunction - In-person encounter Office Visit Sammy Cunha MD [facility] - In-person encounter Office Visit Sammy Cunha MD [facility] - In-person encounter Office Visit Sammy Cunha MD [facility] VENOUS INSUFFICIENCY ;HAD ELVT, HELPED - In-person encounter Office Visit Jose Wang MD [facility] Hyperlipidemia - In-person encounter Office Visit Jose Wang MD [facility] HyperlipidemiaBradycardia;n ot due to medsDIZZINESS AND FATIGUE; DUE TO EUGENE?, WILL CONSIDER PACER.HEMIBLOCK, LEFT ANTERIORHEMATOCHEZIA;STOPPE D ASA AND BETTER, PER PRIMARY - In-person encounter Office Visit Jose Wang MD [facility] - In-person encounter Office Visit Jose Wang MD [facility] Bradycardia;not due to medsHTN CONTROLLED;NEG DUPLEX,LABS PER PRIMARYISCHEMIA;100% OM RESIDIUAL POST STENTS 11, neg nuc 14 - In-person encounter Office Visit Jose Wang MD [facility] HyperlipidemiaOBESITY;CAD;N EG CAROTIDBradycardia;not due to medsLEFT ATRIAL ENLARGEMENT;MILD 2008 WITH NML LVCHEST PAIN INFERIOR WALL ISCHEMIA ON STRESS TESTHTN CONTROLLED;NEG DUPLEX,LABS PER PRIMARYISCHEMIA;100% OM RESIDIUAL POST STENTS 11, neg nuc 14Tobacco use, quit - In-person encounter Office Visit [facility] STENT - BARE METAL C ORONARY TO RCA 2010 - In-person encounter Office Visit [facility] DIABETES;OBESITY;STENT - BARE METAL CORONARY TO RCA 2011Bradycardia;not due to medsCOUGH DUE TO ALFREDO INHIBITORS, HX OFSNORING;DOSE NOT WANT SLEEP STUDY at home or with labERECTILE DYSFUNCTION, ORGANIC - In-person encounter Office Visit [facility] HyperlipidemiaANGINA PECTORIS NEC/NOSCAD;NEG CAROTIDSTENT - BARE METAL CORONARY TO RCA 2011Bradycardia;not due to medsLOW HDL;COULD NOT AFFORD NIASPANCOUGH DUE TO ALFREDO INHIBITORS, HX OF - In-person encounter Office Visit Jose Wang MD [facility] STENT - BARE METAL CORONARY TO RCA 2010 - In-person encounter Office Visit [facility] DIABETES;HyperlipidemiaOBES ITY; VITAL SIGNS Date Observation Value Provider Body Mass Index (Ratio) 34.65 kg/m2 Cristina Wang MD blood pressure, cuff size regular [facility] blood pressure, diastolic 80 mm[Hg] [facility] blood pressure, systolic 120 mm[Hg] [facility] blood pressure, resting Yes [facility] pulse rate 61 /min [facility] oxygen saturation, oximetry 97 % [facility] respiratory rate E&M 18 /min [facility] weight E&M 245 [lb_av] [facility] height E&M 70.5 [in_i] [facility] Body Mass Index (Ratio) 33.66 kg/m2 Cristina Wang MD blood pressure, cuff size large Cr meliza Myrick blood pressure, diastolic 57 mm[Hg] Cr meliza Myrick blood pressure, systolic 120 mm[Hg] Cry stafilipe Myrick oxygen saturation, oximetry 98 % Cheryle Myrick respiratory rate E&M 17 /min Cheryle Myrick pulse rate 54 /min Cheryle peck weight E&M 238 [lb_av] Cheryle peck height E&M 70.5 [in_i] Cheryle peck Body Mass Index (Ratio) 34.37 kg/m2 Cristina Wang MD blood pressure, peña tolic, second observation 77 mm[Hg] Jose Wang MD blood pressure, syst olic, second observation 159 mm[Hg] Jose Wang MD blood pressure, diastolic 80 mm[Hg] Kr isty Olvin blood pressure, systolic 130 mm[Hg] Kri sty Ellis pulse rate 73 /min Rula Ellis oxygen saturation, oximetry 95 % Rula Olvin respiratory rate E&M 17 /min Rula Ellis blood pressure, cuff size regular Kr isty Ellis weight E&M 243 [lb_av] Rula Ellis height E&M 70.5 [in_i] Rula Olvin Body Mass Index (Ratio) 32.81 kg/m2 Cristina Wang MD blood pressure, cuff size regular Kr isty Olvin blood pressure, diastolic 80 mm[Hg] Kr isty Ellis blood pressure, systolic 130 mm[Hg] Kri sty Olvin respiratory rate E&M 16 /min Rula Olvin oxygen saturation, oximetry 96 % Rula Ellis pulse rate 63 /min Rula Olvin weight E&M 232 [lb_av] Rula Olvin height E&M 70.5 [in_i] Rula Ellis blood pressure, diastolic 68 mm[Hg] Me hosea Adam blood pressure, systolic 135 mm[Hg] Yumiko radhika Adam pulse rate 76 /min Ammy Medina oxygen saturation, oximetry 99 % Ammy Medina respiratory rate E&M 18 /min Ammy Medina Body Mass Index (Ratio) 33.95 kg/m2 Bridget Medina weight E&M 240 [lb_av] Ammy Medina Body Mass Index (Ratio) 36.07 kg/m2 Lucero Delgado blood pressure, diastolic 74 mm[Hg] Arjun Delgado blood pressure, systolic 143 mm[Hg] Gustavo Delgado pulse rate 61 /min Becky Delgado oxygen saturation, oximetry 97 % Becky Delgado respiratory rate E&M 18 /min Becky Delgado weight E&M 255 [lb_av] Becky Delgado Body Mass Index (Ratio) 36.34 kg/m2 Ashl ella Alvarez blood pressure, diastolic 78 mm[Hg] As [facility] Kim blood pressure, systolic 140 mm[Hg] Sahil hughes Kim pulse rate 56 /min Tammie Kim oxygen saturation, oximetry 95 % Tammie Alvarez respiratory rate E&M 16 /min Tammie Kim weight E&M 256 [lb_av] Tammie Alvarez blood pressure, diastolic, left arm 70 mm [Hg] Isidra O'Michael blood pressure, systolic, left arm 110 mm [Hg] Isidra O'Michael blood pressure, diastolic, right arm 60 m m[Hg] Isidra O'Michael blood pressure, systolic, right arm 110 m m[Hg] Isidra O'Michael Body Mass Index (Ratio) 36.50 kg/m2 Merrick franco O'Michael blood pressure, diastolic 70 mm[Hg] Ma rsha O'Michael blood pressure, systolic 110 mm[Hg] Nancy ergalado O'Michael pulse rate 71 /min Isidra O'Michael oxygen saturation, oximetry 99 % Isidra O'Michael respiratory rate E&M 18 /min Isidra O'Michael weight E&M 257.13 [lb_av] Isidra O'Michael Body Mass Index (Ratio) 34.98 kg/m2 Joel Garvey blood pressure, diastolic, left arm 62 mm [Hg] Gayla Garvey blood pressure, systolic, left arm 118 mm [Hg] Gayla Garvey blood pressure, diastolic, right arm 70 m m[Hg] Gayla Garvey blood pressure, systolic, right arm 118 m m[Hg] Gayla Garvey blood pressure, diastolic 70 mm[Hg] Hunter Garvey blood pressure, systolic 118 mm[Hg] Bertha Garvey pulse rate 73 /min Gayla Garvey oxygen saturation, oximetry 99 % Gayla Garvey respiratory rate E&M 14 /min Ysabel Garvey weight E&M 246.38 [lb_av] Gayla peck blood pressure, diastolic, left arm 60 mm [Hg] Isidra O'Michael blood pressure, systolic, left arm 92 mm[ Hg] Isidra O'Michael blood pressure, diastolic, right arm 52 m m[Hg] Isidra O'Michael blood pressure, systolic, right arm 102 m m[Hg] Isidra O'Michael Body Mass Index (Ratio) 35.79 kg/m2 Merrick franco O'Michael blood pressure, diastolic 60 mm[Hg] Ma rsha O'Michael blood pressure, systolic 92 mm[Hg] Mar sha O'Michael pulse rate 68 /min Isidra O'Michael oxygen saturation, oximetry 97 % Isidra O'Michael respiratory rate E&M 18 /min Isidra O'Michael weight E&M 252.13 [lb_av] Isidra O'Michael Body Mass Index (Ratio) 36.20 kg/m2 Carlos Alberto franco O'Michael blood pressure, diastolic 64 mm[Hg] Cindy ford O'Michael blood pressure, systolic 119 mm[Hg] Nancy regalado O'Michael pulse rate 52 /min Isidra O'Michael oxygen saturation, oximetry 96 % Isidra O'Michael respiratory rate E&M 16 /min Isidra O'Michael weight E&M 255 [lb_av] Isidra O'Michael blood pressure, diastolic 67 mm[Hg] Cindy ford O'Michael blood pressure, systolic 114 mm[Hg] Nancy regalado O'Michael pulse rate 55 /min Isidra O'Michael oxygen saturation, oximetry 98 % Isidra O'Michael respiratory rate E&M 16 /min Isidra O'Michael weight E&M 260 [lb_av] Isidra O'Michael Body Mass Index (Ratio) 36.77 kg/m2 Delma Mulligan NP weight E&M 259 [lb_av] Dhruv peck NP height E&M 70.5 [in_i] Dhruv peck NP blood pressure, diastolic 67 mm[Hg] [place] blood pressure, systolic 121 mm[Hg] Aline Harmon pulse rate 84 /min Gabrielle Harmon oxygen saturation, oximetry 97 % Gabrielle Harmon respiratory rate E&M 18 /min Gabrielle Harmon weight E&M 216 [lb_av] Gabrielle Harmon blood pressure, diastolic, left arm 68 mm [Hg] Junior Walker blood pressure, systolic, left arm 121 mm [Hg] Juinor Walker blood pressure, diastolic, right arm 75 m m[Hg] Junior Walker blood pressure, systolic, right arm 127 m m[Hg] Junior [place] blood pressure, diastolic 75 mm[Hg] Lilia rodriguez [place] blood pressure, systolic 127 mm[Hg] Fermín [place]rich [place] pulse rate 53 /min [facility], oximetry 98 % [facility] respiratory rate E&M 16 /min [facility] weight E&M 250 [lb_av] [facility] blood pressure, diastolic, left arm 72 mm [Hg] Roystan Nisha blood pressure, systolic, left arm 124 mm [Hg] Roystan Nisha blood pressure, diastolic, right arm 70 m m[Hg] Roystan Nisha blood pressure, systolic, right arm 121 m m[Hg] Roystan Nisha blood pressure, diastolic 70 mm[Hg] Ro ystan Nisha blood pressure, systolic 121 mm[Hg] Travis stu Nisha pulse rate 62 /min Roystan Nisha oxygen saturation, oximetry 98 % Roystan Nisha respiratory rate E&M 16 /min Roystan Nisha weight E&M 252 [lb_av] Roystan Nisha blood pressure, diastolic, left arm 60 mm [Hg] Eneidae Jenise blood pressure, systolic, left arm 111 mm [Hg] Eneidae Jenise blood pressure, diastolic, right arm 79 m m[Hg] Buck Marcumden blood pressure, systolic, right arm 138 m m[Hg] Buck Burden blood pressure, diastolic 60 mm[Hg] Darwin Burden blood pressure, systolic 111 mm[Hg] Poppy Burden pulse rate 71 /min Buck valencia oxygen saturation, oximetry 96 % Buck Burden respiratory rate E&M 16 /min Brady Burden weight E&M 257 [lb_av] Buck Sorenson en blood pressure, diastolic 78 mm[Hg] Zoe Bennett CINDY blood pressure, systolic 142 mm[Hg] Ayesha Bennett CINDY pulse rate 62 /min Yolette Bennett CINDY oxygen saturation, oximetry 97 % Yolette Bennett CINDY respiratory rate E&M 18 /min Yolette Bennett CINDY weight E&M 263.5 [lb_av] Yolette dent CINDY blood pressure, diastolic, left arm 60 mm [Hg] Raymundo Barton blood pressure, systolic, left arm 96 mm[ Hg] Raymundo Barton blood pressure, diastolic, right arm 60 m m[Hg] Raymundo Barton blood pressure, systolic, right arm 100 m m[Hg] Raymundo Barton pulse rate 60 /min Raymundo domingo oxygen saturation, oximetry 95 % Raymundo Barton respiratory rate E&M 18 /min Leilani Barton weight E&M 278.4 [lb_av] Raymundo ivan ALLERGIES Allergy Name Onset Date Reaction Criticality Status ASA BLOOD IN STOOL BLOOD IN STOOL Low Cr iticality active ACCUPRIL cough cough Low Criticality active RESULTS Date Observation Value Provider Reference Range Interpretation Location lipoprotein, beta, serum, point, quantitative, calculated 71 mg/dL [facility] 0-99 HDL cholesterol, serum 46 mg/dL [facility] >39 triglyceride, serum, random 84 mg/dL [facility] 0-149 cholesterol, serum 133 mg/dL [facility] [phone]/08/ 02 free thyroxine index 1.7 [facility] 1.2-4.9 triiodothyronine resin uptake 25 % [facility] 24-39 thyroxine, serum, total 6.9 ug/dL [facility] 4.5-12.0 thyroid stimulating hormone, serum 0.480 u[IU]/mL [facility] 0.450-4.500 lipoprotein, beta, serum, point, quantitative, calculated 64 mg/dL [facility] 0-99 very low density lipoproteins 11 mg/dL [facility] 5-40 HDL cholesterol, serum 56 mg/dL [facility] >39 triglyceride, serum, random 56 mg/dL [facility] 0-149 cholesterol, serum 131 mg/dL [facility] 140-876 0514/11/ 09 ferritin, serum 166 ng/mL [facility] 30-400 B-12, serum 473 pg/mL [facility] [phone] iron saturation percent, serum 34 % [facility] 15-55 iron, serum 100 ug/dL [facility] 38-169 iron binding capacity, unsaturated 197 ug/dL [facility] [phone]/11/ 09 iron binding capacity, total 297 ug/dL [facility] [phone]/02/ 07 microalbumin/creatin ine ratio, urine 5.6 MG/G CREAT [facility] 0.0-30.0 microalbumin, random, urine 0.96 mg/dL [facility] Units converted. See lab report for original value. creatinine, random, urine 170.4 mg/dL [facility] Not Estab. ferritin, serum 51 ng/mL [facility] 30-400 B-12, serum 250 pg/mL [facility] 232-1245 iron saturation percent, serum 45 % [facility] 15-55 iron, serum 154 ug/dL [facility] 38-169 iron binding capacity, unsaturated 187 ug/dL [facility] [phone]/02/ 07 iron binding capacity, total 341 ug/dL [facility] [phone]/02/ 07 prothrombin time (patient) 10.4 s [facility] 9.1-12.0 international normalized ratio (INR) 1.0 [facility] 0.8-1.2 lipoprotein, beta, serum, point, quantitative, calculated 165 mg/dL [facility] 0-99 High very low density lipoproteins 26 mg/dL [facility] 5-40 HDL cholesterol, serum 55 mg/dL [facility] >39 triglyceride, serum, random 132 mg/dL [facility] 0-149 cholesterol, serum 246 mg/dL [facility] 100-199 High basophil count, absolute 0.0 x10E3/uL [facility] 0.0-0.2 Eosinophil Absolute Count 0.1 X10E3/UL [facility] 0.0-0.4 monocyte count, blood, automated 0.5 X10E3/UL [facility] 0.1-0.9 lymphocyte count, blood, automated 1.6 X10E3/UL [facility] 0.7-3.1 Absolute Neutrophils 2.5 X10E3/UL [facility] 1.4-7.0 basophils as percent of blood leukocytes 0 % [facility] Not Estab. eosinophils as percent of blood leukocytes 2 % [facility] Not Estab. monocytes as percent of blood leukocytes 11 % [facility] Not [facility]. lymphocytes as percent of blood leukocytes 35 % [facility] Not Estab. neutrophils as percent of blood leukocytes 52 % [facility] Not Estab. platelet count 202 X10E3/UL [facility] [phone]/02/ 07 red blood cell distribution width 15.1 % [facility] 12.3-15.4 mean corpuscular hemoglobin concentration, RBC 34.4 G/DL [facility] 31.5-35.7 mean corpuscular hemoglobin, RBC 30.3 pg [facility] 26.6-33.0 mean corpuscular volume, RBC 88 fL [facility] 79-97 hematocrit, blood 40.7 % [facility] 37.5-51.0 hemoglobin, blood 14.0 g/dL [facility] 13.0-17.7 erythrocyte (RBC) count 4.62 X10E6/UL [facility] 4.14-5.80 leukocyte count, blood 4.8 X10E3/UL [facility] 3.4-10.8 alanine aminotransferase (SGPT), serum 5 1/L [facility] 0-44 aspartate aminotransferase (SGOT), serum 16 1/L [facility] 0-40 alkaline phosphatase, serum 67 1/L [facility] 39-117 bilirubin, serum, total 1.2 mg/dL [facility] 0.0-1.2 albumin/globulin ratio, serum 1.7 [facility] 1.2-2.2 globulin, serum 2.5 [facility] 1.5-4.5 albumin, serum 4.2 g/dL [facility] 3.5-4.8 protein, total, serum 6.7 g/dL [facility] 6.0-8.5 calcium, serum 9.0 mg/dL [facility] 8.6-10.2 carbon dioxide, venous blood 24 mmol/L [facility] 18-29 chloride, serum 103 mmol/L [facility] 96-106 potassium, serum 4.7 mmol/L [facility] 3.5-5.2 sodium, serum 142 mmol/L [facility] [phone]/02/ 07 urea nitrogen/creatinine ratio, serum 26 [facility] 10-24 High eGFR if not 81 mL/min/{1 .73_m2} [facility] >59 creatinine, serum 0.94 mg/dL [facility] 0.76-1.27 urea nitrogen, blood 24 mg/dL [facility] 8-27 blood glucose, random 103 mg/dL [facility] 65-99 High triglyceride, serum, fasting 103 mg/dL Isidra Thorpe HDL cholesterol, serum 38 mg/dL [facility] cholesterol, serum 69 mg/dL [facility] cholesterol, serum 128 mg/dL [facility] TOTAL NON-HDL-C (LDL VLDL) 93 Dhruv Mulligan alanine aminotransferase (SGPT), serum 18 1/L [place] Mulligan aspartate aminotransferase (SGOT), serum 14 1/L [facility] cholesterol/HDL ratio, serum 3.6 [place] triglyceride, serum, fasting 122 mg/dL Dhruv [facility] HDL cholesterol, serum 36 mg/dL Dhruv [facility] LDL cholesterol, serum 68 mg/dL Dhruv [facility] cholesterol, serum 129 mg/dL Dhruv [facility] triglyceride, target level 150 mg/dL Dhruv [facility] HDL cholesterol, serum, target level 40 mg/dL Dhruv [facility] LDL target level 70 mg/dL Dhruv [facility] cholesterol, target level 200 mg/dL Delmaetimorena FitzgeraldMulligan NP albumin/creatinine ratio, urine 21 mg/g{crea t} Corey Felipe microalbumin/total urine volume 5.5 mg/L Corey Felipe creatinine, random, urine 258.8 mg/dL Corey Felipe LDL/HDL ratio, serum 2.7 Corey Felipe cholesterol/HDL ratio, serum 4.1 Corey Felipe triglyceride, serum, fasting 109 mg/dL Corey Felipe HDL cholesterol, serum 45 mg/dL Corey Felipe LDL cholesterol, serum 119 mg/dL Corey Felipe cholesterol, serum 186 mg/dL Corey Felipe hemoglobin A1C, blood, as % of total hemoglobin 6.2 % Corey Felipe anion gap, serum 10 Corey Felipe estimated glomerular filtration rate 79 mL/min [facility] albumin/globulin ratio, serum 1.4 [facility] protein, total, serum 6.6 g/dL [facility] albumin, serum 3.9 g/dL [facility] bilirubin, serum, total 1.30 mg/dL [facility] alkaline phosphatase, serum 69 1/L [facility] alanine aminotransferase (SGPT), serum 52 1/L [facility] aspartate aminotransferase (SGOT), serum 31 1/L [facility] calcium, serum 8.7 mg/dL [facility] blood glucose, fasting 122 mg/dL [facility] creatinine, serum 1.0 mg/dL [facility] urea nitrogen, blood 24 mg/dL [facility] carbon dioxide, serum, total 24.1 mmol/L [facility] chloride, serum 105 mmol/L [facility] potassium, serum 4.2 mmol/L [facility] sodium, serum 139 mmol/L [facility] LDL/HDL ratio, serum 3.3 [facility] cholesterol/HDL ratio, serum 5.3 [facility] triglyceride, serum, fasting 216 mg/dL [facility] HDL cholesterol, serum 41 mg/dL [facility] LDL cholesterol, serum 135 mg/dL [facility] cholesterol, serum 219 mg/dL [facility] Total LDL-cholesterol direct 146 mg/dL [facility] prothrombin time (patient) 10.20 s [facility] international normalized ratio (INR) 0.99 [facility] anion gap, serum 8 [facility] Mat[facility]o estimated glomerular filtration rate 79 mL/min [facility] calcium, serum 8.9 mg/dL [facility] blood glucose, fasting 132 mg/dL [facility] creatinine, serum 1.0 mg/dL [facility] urea nitrogen, blood 17 mg/dL [facility] carbon dioxide, serum, total 26.1 mmol/L [facility] chloride, serum 105 mmol/L [facility] potassium, serum 4.5 mmol/L [facility] sodium, serum 139 mmol/L [facility] platelet count 189 10*3/uL [facility] mean corpuscular hemoglobin concentration, RBC 35.8 g/dL [facility] mean corpuscular hemoglobin, RBC 30.1 pg [facility] mean corpuscular volume, RBC 84 fL [facility] hematocrit, blood 43.9 % [facility] hemoglobin, blood 15.7 g/dL [facility] erythrocyte (RBC) count 5.21 10*6/mm3 [facility] monocytes as percent of blood leukocytes 11.5 % [facility] lymphocytes as percent of blood leukocytes 28.3 % [facility] leukocyte count, blood 5.5 10*3/mm3 [facility] hemoglobin A1C, blood, as % of total hemoglobin 7.9 % [facility] bilirubin, serum, direct 0.23 mg/dL [facility] bilirubin, serum, indirect 0.34 mg/dL [facility] estimated glomerular filtration rate 30 mL/min [facility] albumin/globulin ratio, serum 0.9 [facility] protein, total, serum 7.2 g/dL [facility] albumin, serum 3.5 g/dL [facility] bilirubin, serum, total 0.57 mg/dL [facility] alkaline phosphatase, serum 105 1/L [facility] alanine aminotransferase (SGPT), serum 28 1/L [facility] aspartate aminotransferase (SGOT), serum 17 1/L [facility] calcium, serum 8.7 mg/dL [facility] blood glucose, fasting 146 mg/dL [facility] creatinine, serum 1.8 mg/dL [facility] urea nitrogen, blood 27 mg/dL [facility] carbon dioxide, serum, total 28.9 mmol/L [facility] chloride, serum 107 mmol/L [facility] potassium, serum 4.4 mmol/L [facility] sodium, serum 143 mmol/L [facility] platelet count 204 10*3/uL [facility] mean corpuscular hemoglobin concentration, RBC 31.6 g/dL [facility] mean corpuscular hemoglobin, RBC 28.6 pg [facility] mean corpuscular volume, RBC 91 fL [facility] hematocrit, blood 38.0 % [facility] hemoglobin, blood 12.0 g/dL [facility] erythrocyte (RBC) count 4.19 10*6/mm3 [facility] [facility] monocytes as percent of blood leukocytes 9.8 % [facility] lymphocytes as percent of blood leukocytes 36.9 % [facility] leukocyte count, blood 5.1 10*3/mm3 [facility] hemoglobin A1C, blood, as % of total hemoglobin 6.0 % [facility] LDL/HDL ratio, serum 3.9 [facility] cholesterol/HDL ratio, serum 5.7 [facility] triglyceride, serum, fasting 190 mg/dL [facility] HDL cholesterol, serum 44 mg/dL [facility] LDL cholesterol, serum 170 mg/dL [facility] cholesterol, serum 252 mg/dL [facility] bilirubin, serum, direct 0.15 mg/dL [facility] bilirubin, serum, indirect 0.82 mg/dL [facility] albumin/globulin ratio, serum 1.1 [facility] protein, total, serum 7.0 g/dL [facility] albumin, serum 3.7 g/dL [facility] bilirubin, serum, total 0.97 mg/dL [facility] alkaline phosphatase, serum 64 1/L [facility] alanine aminotransferase (SGPT), serum 41 1/L [facility] aspartate aminotransferase (SGOT), serum 12 1/L [facility] hemoglobin A1C, blood, as % of total hemoglobin 6.0 % [facility] albumin/globulin ratio, serum 1.8 [facility] protein, total, serum 5.9 g/dL [facility] albumin, serum 3.8 g/dL [facility] bilirubin, serum, total 0.6 mg/dL [facility] alkaline phosphatase, serum 50 1/L [facility] alanine aminotransferase (SGPT), serum 17 1/L aspartate aminotransferase (SGOT), serum 15 1/L [facility] calcium, serum 8.9 mg/dL [facility] blood glucose, fasting 84 mg/dL [facility] creatinine, serum 0.76 mg/dL [facility] urea nitrogen, blood 16 mg/dL [facility] carbon dioxide, serum, total 20 mmol/L [facility] chloride, serum 104 mmol/L [facility] potassium, serum 4.2 mmol/L [facility] sodium, serum 136 mmol/L [facility] albumin/globulin ratio, serum 1.8 [facility] protein, total, serum 5.9 g/dL [facility] albumin, serum 3.8 g/dL [facility] bilirubin, serum, total 0.6 mg/dL [facility] alkaline phosphatase, serum 50 1/L [facility] alanine aminotransferase (SGPT), serum 17 1/L [facility] aspartate aminotransferase (SGOT), serum 15 1/L [facility] calcium, serum 8.9 mg/dL [facility] blood glucose, fasting 84 mg/dL [facility] creatinine, serum 0.76 mg/dL [facility] urea nitrogen, blood 16 mg/dL [facility] carbon dioxide, serum, total 20 mmol/L [facility] chloride, serum 104 mmol/L [facility] potassium, serum 4.2 mmol/L [facility] sodium, serum 136 mmol/L [facility] HISTORY OF MEDICATION USE Medication Status Instructions Dates Provider Indications Com ments NEXLIZET 180-10 MG ORAL TABLET active one tab by mouth daily Jose Wang MD FARXIGA 10 MG ORAL TABLET active One tab by mouth daily Reduces cardiovascular and heart failure hospitalizations Ofe Lorenzo NP OZEMPIC (0.25 OR 0.5 MG/DOSE) 2 MG/1.5ML SUBCUTANEOUS SOLUTION PEN-INJECTOR active inject 0.25mg subcutaneously once weekly x4 weeks, then increase to 0.5mg subcutaneously weekly reduces risk of major CV events Ofe Lorenzo NP FLUZONE HIGH-DOSE QUADRIVALENT 0.7 ML INTRAMUSCULAR SUSPENSION PREFILLED SYRINGE active ADMINISTER 0.7ML IN THE MUSCLE DIRECTED Ofe Lorenzo NP #0.7, 1 days supply, Prescribed by PHOEBE BARTLETT, Filled 01/02/2020 ATORVASTATIN CALCIUM 80 MG TABS active TAKE 1 TABLET BY MOUTH DAILY AT BEDTIME. FOLLOW UP APPOINTMENT REQUIRED FOR ADDITIONAL REFILLS. Rajeev Andrews LOSARTAN POTASSIUM 25 MG ORAL TABLET active Take one tablet daily Jose Wang MD LOSARTAN POTASSIUM 100 MG ORAL TABLET completed Take one tablet daily - Cheryle Myrick JARDIANCE 10 MG ORAL TABLET completed One tab by mouth daily. - Jose Wang MD ZETIA 10 MG ORAL TABLET active ONE TAB. DAILY Jose Wang MD VITAMIN B-12 1000 MCG ORAL TABLET active One tablet daily Jose Wang MD COZAAR 50 MG ORAL TABLET completed ONE TAB. DAILY at bedtime - Rula Bah AZATHIOPRINE 50 MG ORAL TABLET active take 1 1/2 tablet by mouth once daily Rula Olvin #30, 20 days supply, Filled 02/13/2017 BALSALAZIDE DISODIUM 750 MG ORAL CAPSULE active take one tablet by mouth twice daily [place] #810, 90 days supply, Filled 02/28/2017 B-12 1000 MCG ORAL CAPSULE completed once daily - Rula Bah VITAMIN D3 1000 UNIT ORAL CAPSULE completed once daily - [place] Bah THEMIS TICAGRELOR 90MG BID/PLACEBO completed - Ammy BELVIQ 10 MG ORAL TABLET completed 1 tab. twice daily - Jose Wang MD PERCOCET 5-325 MG ORAL TABLET completed take one tablet every 6 hours as needed - Tammie Alvarez KEFLEX 500 MG ORAL CAPSULE completed one tab every 8 hours - Tammie Alvarez [facility] IRON 325 (65 Fe) MG ORAL TABLET completed two tabs once daily - Ammyradhika Medina ATACAND 16 MG ORAL TABLET completed ONE TAB. EVERY OTHER DAY - Isidra Vitale'Michael FEOSOL 200 (65 Fe) MG ORAL TABLET completed ONE TAB. DAILY - Jose Wang MD EFFIENT 10 MG ORAL TABLET completed Take 1 tab daily - Jose Wang MD RANEXA 500 MG ORAL TABLET EXTENDED RELEASE 12 HOUR completed ONE TAB. TWICE DAILY for chronic angina - Junior Walker OMEGA-3 FISH OIL CAPS completed 2 TAB. DAILY - Gabrielle Harmon CIALIS 20 MG ORAL TABLET completed Take one tab daily as needed - Isidra Thorpe LIPITOR 80 MG ORAL TABLET active Take one tablet daily at bedtime Patria Hardin RN COZAAR 50 MG ORAL TABLET completed ONE TAB. DAILY - Rula Suttonby ASPIRIN 325 MG ORAL TABLET completed 1 tablet by mouth daily - Isidra Thorpe QUINAPRIL HCL 5 MG ORAL TABLET completed ONE TAB. DAILY - Yolette Bennett MA ASPIRIN 325 MG ORAL TABLET completed one tab daily - Yolette Bennett MA METFORMIN HCL 500 MG ORAL TABLET active twice daily Gabrielle Harmon GLIMEPIRIDE 1 MG ORAL TABLET completed Half tab once daily - Rula Olvin SIMVASTATIN 80 MG ORAL TABLET completed once daily - Giselle Chery RN SOCIAL HISTORY Date Observation Value Provider physical exercise, frequency, days per week yes Rula Olvin caffeine use, averag e drinks per day yes Rula Ellis passive cigarette sm nicole exposure no Rula Olvin smoking, year quit 1992 Rula castro number of years as a smoker 10 years or m ore Rula Olvin smoking history, tot al pack/year 20 Rula Olvin cigarette use yes Rula Olvin smoking status Former smoker Rula Olvin social history E&M Marital Statu s: E thnicity: Smoking History: Lucy pérez is a former smoker. Jose Wang MD social history reviewed E&M revi ewed - no changes required Jose Wang MD cigarette use yes Cheryle Campos ms smoking status Former smoker Cheryle morales social history E&M Marital Statu s: E thnicity: Smoking History: P atjorge is a former smoker. Jose Wang MD social history reviewed E&M revi ewed - no changes required Jose Wang MD physical exercise, frequency, days per week yes Rula Suttonby alcohol use, average drinks per day social basis only Rula Suttonby caffeine use, averag e drinks per day yes Rula Olvin drug use no Rula Ellis passive cigarette sm nicole exposure no Rula Suttonby smoking status Former smoker Rula Bah social history E&M Marital Statu s: E thnicity: S moking History: P beto is a former smoker. Jose Wang MD social history reviewed E&M revi ewed - no changes required Jose Wang MD social history E&M Marital Statu s: E thnicity: Smoking History: P beto is a former smoker. Jose Wang MD social history reviewed E&M revi ewed - no changes required Jose Wang MD physical exercise, frequency, days per week yes Ammy Medina alcohol use, average drinks per day social basis only Ammy Medina caffeine use, averag e drinks per day yes Ammy Medina drug use no Ammy Medina passive cigarette sm nicole exposure no Ammy Medina smoking status Former smoker Ammy Medina social history reviewed E&M revi ewed - no changes required Jose Wang MD quit smoking, stage quit Jose tabor MD social history reviewed E&M reviewed Jose Wang MD social history reviewed E&M reviewed Sammy Cunha MD social history reviewed E&M reviewed Elza Bar RN social history reviewed E&M reviewed Elza Bar RN drug use no Jose Salazar passive cigarette sm nicole exposure no Jose Wang MD smoking history, tot al pack/year 20 Jose Wang MD smoking, year quit 1992 Jose gonzalez MD social history reviewed E&M reviewed Jose Wang MD smoking status former smoker Isidra Vitale'Cherrie l quit smoking, stage quit Jose tabor MD social history reviewed E&M reviewed Jose Wang MD smoking status quit Dhruv Fitzgerald els REFERRAL MANAGEMENT LIAISON social history reviewed E&M reviewed Dhruv Mulligan REFERRAL MANAGEMENT LIAISON social history reviewed E&M reviewed Jose Wang MD quit smoking, stage quit Jose tabor MD social history reviewed E&M reviewed Jose Wang MD drug use none Mckayla Rod MD social history reviewed E&M reviewed Mckayla Rod MD quit smoking, stage quit Jose tabor MD social history reviewed E&M reviewed Jose Wang MD social history reviewed E&M reviewed Jose Wang MD social history E&M Marital Statu s: E thnicity: Jose Wang MD social history reviewed E&M reviewed Jose Wang MD physical exercise, frequency, days per week yes [employer] caffeine use, averag e drinks per day yes [employer] alcohol use, average drinks per day social basis only [employer] number of years as a smoker 10 years or m ore [employer] smoking status Quit [employer] physical exercise, frequency, days per week yes [employer] caffeine use, averag e drinks per day yes [employer] alcohol use, average drinks per day social basis only [employer] number of years as a smoker 10 years or m ore [employer] smoking status Quit [employer] FUNCTIONAL STATUS Date Observation Value Provider HRA, CV Assess/Plan, Angina (inactive) Management Plan continue current therapy Jose Wang MD HRA, CV Assess/Plan, Angina (inactive) Management Plan continue current therapy Jose Wang MD HRA, CV Assess/Plan, Angina (inactive) Management Plan continue current therapy Jose Wang MD HRA, CV Assess/Plan, Angina (inactive) Management Plan continue current therapy Jose Wang MD MENTAL STATUS Date Observation Value Provider assessment of judgme nt and insight E&M Alert and oriented to time, place and person. Mood and affect are normal. Jose Wang MD assessment of judgme nt and insight E&M Alert and oriented to time, place and person. Mood and affect are normal. Sammy Cunha MD assessment of judgme nt and insight E&M Alert and oriented to time, place and person. Mood and affect are normal. Elza Bar RN assessment of judgme nt and insight E&M Alert and oriented to time, place and person. Mood and affect are normal. Elza Bar RN assessment of judgme nt and insight E&M Alert and oriented to time, place and person. Mood and affect are normal. Jose Wang MD assessment of judgme nt and insight E&M Alert and oriented to time, place and person. Mood and affect are normal. Jose Wang MD assessment of judgme nt and insight E&M Alert and oriented to time, place and person. Mood and affect are normal. Jose Wang MD assessment of judgme nt and insight E&M Alert and oriented to time, place and person. Mood and affect are normal. Jose Wang MD assessment of judgme nt and insight E&M Alert and oriented to time, place and person. Mood and affect are normal. Mckayla Rod MD assessment of judgme nt and insight E&M Alert and oriented to time, place and person. Mood and affect are normal. Jose Wang MD assessment of judgme nt and insight E&M Alert and oriented to time, place and person. Mood and affect are normal. Jose Wang MD assessment of judgme nt and insight E&M Alert and oriented to time, place and person. Mood and affect are normal. Jose Wang MD FAMILY HISTORY Family Member Condition Mother [place] female <65 Father Family History of Co ronary Artery Disease: Father Family History of Di abetes: Mother Family History of Co ngestive Heart Failure: Mother Family History of Hy pertension: Mother Family History of Di abetes: INSURANCE PROVIDERS Payer name Policy type / Coverage type Lyudmila red green party ID [facility] Medicare [id number] ADVANCE DIRECTIVES Name Date DISCUSSED - NO DECISION MADE TREATMENT PLAN Date Name Performer Cardiology Ofe Lorenzo NP Cardiology: T he following medications were removed from the medication list: Losartan Potassium 100 Mg Oral Tablet (Losartan potassium) ..... Take one tablet daily Jardiance 10 Mg Oral Tablet (Empagliflozin) ..... One tab by mouth daily. His updated medication list for this problem includes: Metformin Hcl 500 Mg Oral Tablet (Metformin hcl) ..... Twice daily Labs Reviewed: H gBA1c: 6.2 (09/06/2010) Creat: 0.94 (04/08/2017) Microalbumin: 5.5 (09/06/2010) Jose Wang MD Cardiology: T he following medications were removed from the medication list: Losartan Potassium 100 Mg Oral Tablet (Losartan potassium) ..... Take one tablet daily BP today: 120/57 Prior BP: 130/80 (12/17/2017) Prior 10 Yr Risk Heart Disease: N/A (04/28/2011) Labs Reviewed: C reat: 0.94 (04/08/2017) C hol: 246 (04/08/2017) HDL: 55 (04/08/2017) Jose Wang MD Cardiology Jose Wang MD Cardiology: 1 00 om residual p stents, njuc 18 fiexed Jose Wang MD Cardiology:neg aaa, neg uacr Swapnil Wang MD Cardiology:does not want rx Cristina Wang MD Cardiology Jose Wang MD Cardiology Jose Wang MD Cardiology: h ad two infusions due to coliaits Jose Wang MD Cardiology Jose Wang MD Cardiology Jose Wang MD Cardiology Jose Wang MD Cardiology:add bibianadiphillip Wang MD Cardiology:will add zdetia H is updated medication list for this problem includes: Lipitor 80 Mg Oral Tablet (Atorvastatin calcium) ..... One tab. daily C HOL: 246 (04/08/2017) HDL: 55 (04/08/2017) CHOL (goal): 200 (04/28/2011) LDL (goal): 70 (04/28/2011) HDL (goal): 40 (04/28/2011) TG (goal): 150 (04/28/2011) Jose Wang MD Cardiology:had two infusions due to coliaits Jose Wang MD Cardiology: T he following medications were removed from the medication list: Cozaar 50 Mg Oral Tablet (Losartan potassium) ..... One tab. daily at bedtime His updated medication list for this problem includes: Losartan Potassium 100 Mg Oral Tablet (Losartan potassium) ..... Take one tablet daily BP today: 130/80 P rior BP: 130/80 (04/07/2017) Prior 10 Yr Risk Heart Disease: N/A (04/28/2011) Labs Reviewed: C reat: 0.94 (04/08/2017) C hol: 246 (04/08/2017) HDL: 55 (04/08/2017) Jose Wang MD Cardiology: 1 00 om residual p stents, njuc 18 fiexed Jose Wang MD Cardiology:on rx Jose Salazar Cardiology:CHOL: 128 (10/12/2012) LDL: 69 (10/12/2012) HDL: 38 (10/12/2012) T (10/12/2012) C HOL (goal): 200 (04/28/2011) LDL (goal): 70 (04/28/2011) HDL (goal): 40 (04/28/2011) TG (goal): 150 (04/28/2011) His updated medication list for this problem includes: Lipitor 80 Mg Oral Tablet (Atorvastatin calcium) ..... One tab. daily Jose Wang MD Cardiology Jose Wang MD Cardiology Jose Wang MD Cardiology:100 om residual p jossie nts, due for nuc Jose Wang MD Cardiology:needed iron infusion Jose Wang MD Cardiology Jose Wang MD Cardiology Jose Wang MD Cardiology Jose Wang MD Cardiology Jose Wang MD Cardiology Jose Wang MD Cardiology Jose Wang MD Cardiology:cannot tolerate even asa Jose Wang MD Cardiology: H is updated medication list for this problem includes: Lipitor 80 Mg Tabs (Atorvastatin calcium) ..... One tab. daily(generic ok) Jose Wang MD Cardiology:7.2 per p t H is updated medication list for this problem includes: Glimepiride 1 Mg Tabs (Glimepiride) ..... Half tab once daily Metformin Hcl 500 Mg Tabs (Metformin hcl) ..... Twice daily Cozaar 50 Mg Tabs (Losartan potassium) ..... One tab. daily Jose Wang MD f/u: H is updated medication list for this problem includes: Lipitor 80 Mg Tabs (Atorvastatin calcium) ..... One tab. daily(generic ok) Jose Wang MD f/u Jose Wang MD f/u Jose Wang MD f/u Jose Wang MD f/u: O rders: S TR - Nuclear ([id number]) Jose Wang MD f/u: O rders: S TR - Nuclear ([id number]) Jose Wang MD f/u: H is updated medication list for this problem includes: Cozaar 50 Mg Tabs (Losartan potassium) ..... One tab. 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 One tab. daily Elza Bar RN follow up-ltr fxd, n ote done:suspect cellulitis in calf t high is only a bruise from high energy will start keflex, and percocet for pain Elza Bar RN follow up :i think t his should improve if evlt successful Elza Bar RN follow up : The chyna ent comes in today for f/u post evlt last week. He had a very large gsv at 12. 4 mm. He has had bruisng and pain in the left upper thigh. His calf feels ok. w ill chekc dopplers today d oubt post evlt complication- suspect normal but slighly exaggerated post procedure recovery Elza Bar RN follow up Jose Wang MD follow up Jose Wang MD follow up: O rders: L ipid Strip (CPT-63531) e Prescribe - Check this box if eRx is used ([id number]) V enous Doppler Bilateral LE - Standing (CPT-[id number]) C omplete Echo (CPT-61645) Jose Wang MD follow up: H is updated medication list for this problem includes: Lipitor 80 Mg Tabs (Atorvastatin calcium) ..... One tab. daily(generic ok) Orders: S TR - Nuclear ([id number]) L ipid Strip (CPT-35975) e Prescribe - Check this box if eRx is used ([id number]) V enous Doppler Bilateral LE - Standing (CPT-99353) C omplete Echo (CPT-[id number]) Jose Wang MD follow up: T he following medications were removed from the medication list: Atacand 16 Mg Tabs (Candesartan cilexetil) ..... One tab. every other day His updated medication list for this problem includes: Cozaar 50 Mg Tabs (Losartan potassium) ..... One tab. daily Orders: S TR - Nuclear ([id number]) L ipid Strip (CPT-88071) e Prescribe - Check this box if eRx is used ([id number]) V enous Doppler Bilateral LE - Standing ([id number]) C omplete Echo (CPT-85083) Jose Wang MD follow up: O rders: S TR - Nuclear ([id number]) L ipid Strip (CPT-00087) e Prescribe - Check this box if eRx is used (CPT-[id number]) V enous Doppler Bilateral LE - Standing (CPT-19666) C omplete Echo (CPT-14530) Jose Wang MD follow up: T he following medications were removed from the medication list: Atacand 16 Mg Tabs (Candesartan cilexetil) ..... One tab. every other day His updated medication list for this problem includes: Glimepiride 1 Mg Tabs (Glimepiride) ..... Half tab once daily Metformin Hcl 500 Mg Tabs (Metformin hcl) ..... Twice daily Cozaar 50 Mg Tabs (Losartan potassium) ..... One tab. daily Orders: S TR - Nuclear ([id number]) L ipid Strip (CPT-88120) e Prescribe - Check this box if eRx is used ([id number]-[id number]) V enous Doppler Bilateral LE - Standing (CPT-89969) C omplete Echo (CPT-61204) Jose Wang MD follow up: H is updated medication list for this problem includes: Lipitor 80 Mg Tabs (Atorvastatin calcium) ..... One tab. daily(generic ok) Orders: S TR - Nuclear ([id number]) L ipid Strip (CPT-22012) e Prescribe - Check this box if eRx is used (CPT-[id number]) V enous Doppler Bilateral LE - Standing (CPT-25769) C omplete Echo (CPT-65240) Jose Wang MD follow up: O rders: S TR - Nuclear ([id number]) L ipid Strip (CPT-98475) e Prescribe - Check this box if eRx is used (CPT-G8553) V enous Doppler Bilateral LE - Standing (CPT-87847) C omplete Echo (CPT-05604) Jose Wang MD follow up: O rders: S TR - Nuclear ([id number]) L ipid Strip (CPT-40444) e Prescribe - Check this box if eRx is used (CPT-G8553) V enous Doppler Bilateral LE - Standing (CPT-90764) C omplete Echo (CPT-51425) Jose Wang MD follow up: H is updated medication list for this problem includes: Lipitor 80 Mg Tabs (Atorvastatin calcium) ..... One tab. daily(generic ok) Jose Wang MD follow up: O rders: V enous Doppler Bilateral LE - Standing (CPT-79135) C omplete Echo (CPT-59875) Jose Wang MD follow up Jose Wang MD follow up : T he following medications were removed from the medication list: Aspirin 325 Mg Tabs (Aspirin) ..... 1 tablet by mouth daily His updated medication list for this problem includes: Lipitor 80 Mg Tabs (Atorvastatin calcium) ..... One tab. daily Orders: H olter Monitor 24 Hr (CPT-[id number]) Jose Wang MD follow up Jose Wang MD follow up Jose Wang MD follow up : O rders: H olter Monitor 24 Hr (CPT-47671) Jose Wang MD follow up : T he following medications were removed from the medication list: Aspirin 325 Mg Tabs (Aspirin) ..... 1 tablet by mouth daily His updated medication list for this problem includes: Lipitor 80 Mg Tabs (Atorvastatin calcium) ..... One tab. daily Orders: H olter Monitor 24 Hr (CPT-80284) Jose Wang MD follow up : O rders: H olter Monitor 24 Hr (CPT-[id number]) Jose Wang MD follow up : T he following medications were removed from the medication list: Aspirin 325 Mg Tabs (Aspirin) ..... 1 tablet by mouth daily Orders: H olter Monitor 24 Hr (CPT-[id number]) Jose Wang MD follow up : T he following medications were removed from the medication list: Aspirin 325 Mg Tabs (Aspirin) ..... 1 tablet by mouth daily Orders: E KG (CPT-21394) H olter Monitor 24 Hr (CPT-63405) Jose Wang MD follow up : H is updated medication list for this problem includes: Lipitor 80 Mg Tabs (Atorvastatin calcium) ..... One tab. daily Jose Wang MD follow up: O rders: C arotid Duplex Bilateral (CPT-13337) Jose Wang MD follow up Jose Wang MD follow up: O rders: C arotid Duplex Bilateral (CPT-73809) Jose Wang MD follow up: H is updated medication list for this problem includes: Aspirin 325 Mg Tabs (Aspirin) ..... 1 tablet by mouth daily Lipitor 80 Mg Tabs (Atorvastatin calcium) ..... One tab. daily Orders: C arotid Duplex Bilateral (CPT-90177) Jose Wang MD follow up: H is updated medication list for this problem includes: Aspirin 325 Mg Tabs (Aspirin) ..... 1 tablet by mouth daily Lipitor 80 Mg Tabs (Atorvastatin calcium) ..... One tab. daily Orders: C arotid Duplex Bilateral (CPT-15324) Jose Wang MD follow up: H is updated medication list for this problem includes: Aspirin 325 Mg Tabs (Aspirin) ..... 1 tablet by mouth daily Jose Wang MD follow up: H is updated medication list for this problem includes: Aspirin 325 Mg Tabs (Aspirin) ..... 1 tablet by mouth daily Orders: C arotid Duplex Bilateral (CPT-31105) Jose Wang MD follow up Jose Wang MD follow up: H is updated medication list for this problem includes: Aspirin 325 Mg Tabs (Aspirin) ..... 1 tablet by mouth daily Cozaar 50 Mg Tabs (Losartan potassium) ..... One tab. daily Jose Wang MD follow up Jose Wang MD 3 week follow-up s/p Cardiac Cath: H is updated medication list for this problem includes: Lipitor 80 Mg Tabs (Atorvastatin calcium) ..... One tab. daily instead of pravastain Jose Wang MD 3 week follow-up s/p Cardiac Cat h Jose Wang MD 3 week follow-up s/p Cardiac Cath: H is updated medication list for this problem includes: Aspirin 325 Mg Tabs (Aspirin) ..... 1 tablet by mouth daily Cozaar 50 Mg Tabs (Losartan potassium) ..... One tab. daily Jose Wang MD 3 week follow-up s/p Cardiac Cath: O rders: H olter Monitor 24 Hr (CPT-12260) Jose Wang MD 3 week follow-up s/p Cardiac Cath: O rders: H olter Monitor 24 Hr (CPT-00345) The following medications were removed from the medication list: Ranexa 500 Mg Tb12 (Ranolazine) ..... One tab. twice daily for chronic angina His updated medication list for this problem includes: Aspirin 325 Mg Tabs (Aspirin) ..... 1 tablet by mouth daily Lipitor 80 Mg Tabs (Atorvastatin calcium) ..... One tab. daily instead of pravastain Effient 10 Mg Tabs (Prasugrel hcl) ..... Take 1 tab daily Jose Wang MD 3 week follow-up s/p Cardiac Cath: O rders: H olter Monitor 24 Hr (CPT-22323) Jose Wang MD 3 week follow-up s/p Cardiac Cath: H is updated medication list for this problem includes: Aspirin 325 Mg Tabs (Aspirin) ..... 1 tablet by mouth daily Cozaar 50 Mg Tabs (Losartan potassium) ..... One tab. daily Orders: H olter Monitor 24 Hr ([id number]) Jose Wang MD 3 week follow-up s/p Cardiac Cath: T he following medications were removed from the medication list: Ranexa 500 Mg Tb12 (Ranolazine) ..... One tab. twice daily for chronic angina His updated medication list for this problem includes: Aspirin 325 Mg Tabs (Aspirin) ..... 1 tablet by mouth daily Lipitor 80 Mg Tabs (Atorvastatin calcium) ..... One tab. daily instead of pravastain Effient 10 Mg Tabs (Prasugrel hcl) ..... Take 1 tab daily Orders: H olter Monitor 24 Hr (CPT-[id number]) Jose Wang MD 3 week follow-up s/p Cardiac Cath: T he following medications were removed from the medication list: Ranexa 500 Mg Tb12 (Ranolazine) ..... One tab. twice daily for chronic angina His updated medication list for this problem includes: Aspirin 325 Mg Tabs (Aspirin) ..... 1 tablet by mouth daily Effient 10 Mg Tabs (Prasugrel hcl) ..... Take 1 tab daily Orders: H olter Monitor 24 Hr ([id number]) Jose Wang MD 3 week follow-up s/p Cardiac Cath: H is updated medication list for this problem includes: Lipitor 80 Mg Tabs (Atorvastatin calcium) ..... One tab. daily instead of pravastain Orders: H olter Monitor 24 Hr (CPT-[id number]) Jose Wang MD 3 week follow-up s/p Cardiac Cat h Jose Wang MD pt c/o chest pain: H is updated medication list for this problem includes: Aspirin 81 Mg Tabs (Aspirin) ..... One tab. daily Ranexa 500 Mg Tb12 (Ranolazine) ..... One tab. twice daily for chronic angina BP today: 121/70 Prior BP: 111/60 (01/21/2010) H gb: 12.0 (04/11/2010) HCT: 38.0 (04/11/2010) RBC: 4.19 (04/11/2010) WBC: 5.1 (04/11/2010) B UN: 27 (04/11/2010) Creat: 1.8 (04/11/2010) Glucose: 146 (04/11/2010) N a+: 143 (04/11/2010) K+: 4.4 (04/11/2010) Cl: 107 (04/11/2010) Calcium: 8.7 (04/11/2010) Nuclear Stress Findings: 1. Normal Wesly protocol exercise tolerance test. 2 . Normal left ventricular size and function with a calculated ejection fraction of 72%. 3 . Myocardial scintigraphy demonstrates inferior wall ischemia. CNE (01/22/2010) Echocardiogram: No evidence of an aneurysm of the abdominal aorta and common illiac arteries. CNE (03/11/2010) C ardiac Cath: EF - 70% N ormal left venricular systolic function. % LAD stenosis: 70% proximal % CX stenosis: 60% mid. % second Obtuse Marginal stenosis: 100% occluded filled viat [id number] collaterals % RCA stenosis: 75% mid (06/22/2007) C ardiac Cath Comments: Successful stent to proximal LAD to 3.0 x 23mm Vision stent, and a stent to the mid circumflex with a 3.0 x 16mm Liberte. (06/22/2007) Mckayla Rod MD pt c/o chest pain: H is updated medication list for this problem includes: Aspirin 81 Mg Tabs (Aspirin) ..... One tab. daily Pravachol 80 Mg Tabs (Pravastatin sodium) ..... 1 tab once daily Ranexa 500 Mg Tb12 (Ranolazine) ..... One tab. twice daily for chronic angina BP today: 121/70 Prior BP: 111/60 (01/21/2010) N uclear Stress Findings: 1. Normal Wesly protocol exercise tolerance test. 2 . Normal left ventricular size and function with a calculated ejection fraction of 72%. 3 . Myocardial scintigraphy demonstrates inferior wall ischemia. CNE (01/22/2010) C ardiac Cath: EF - 70% N ormal left venricular systolic function. % LAD stenosis: 70% proximal % CX stenosis: 60% mid. % second Obtuse Marginal stenosis: 100% occluded filled viat uqpw-eb-kyof collaterals % RCA stenosis: 75% mid (06/22/2007) C ardiac Cath Comments: Successful stent to proximal LAD to 3.0 x 23mm Vision stent, and a stent to the mid circumflex with a 3.0 x 16mm Liberte. (06/22/2007) C arotid Doppler/Duplex: normal: (06/08/2007) C HOL: 252 (01/03/2010) LDL: 170 (01/03/2010) HDL: 44 (01/03/2010) T (01/03/2010) H gb: 12.0 (04/11/2010) HCT: 38.0 (04/11/2010) RBC: 4.19 (04/11/2010) WBC: 5.1 (04/11/2010) B UN: 27 (04/11/2010) Creat: 1.8 (04/11/2010) Glucose: 146 (04/11/2010) N a+: 143 (04/11/2010) K+: 4.4 (04/11/2010) Cl: 107 (04/11/2010) Mckayla Rod MD pt c/o chest pain: H is updated medication list for this problem includes: Aspirin 81 Mg Tabs (Aspirin) ..... One tab. daily Pravachol 80 Mg Tabs (Pravastatin sodium) ..... 1 tab once daily Ranexa 500 Mg Tb12 (Ranolazine) ..... One tab. twice daily for chronic angina BP today: 121/70 Prior BP: 111/60 (01/21/2010) N uclear Stress Findings: 1. Normal Wesly protocol exercise tolerance test. 2 . Normal left ventricular size and function with a calculated ejection fraction of 72%. 3 . Myocardial scintigraphy demonstrates inferior wall ischemia. CNE (01/22/2010) C ardiac Cath: EF - 70% N ormal left venricular systolic function. % LAD stenosis: 70% proximal % CX stenosis: 60% mid. % second Obtuse Marginal stenosis: 100% occluded filled viat gmvw-ms-xsal collaterals % RCA stenosis: 75% mid (06/22/2007) C ardiac Cath Comments: Successful stent to proximal LAD to 3.0 x 23mm Vision stent, and a stent to the mid circumflex with a 3.0 x 16mm Liberte. (06/22/2007) C arotid Doppler/Duplex: normal: (06/08/2007) C HOL: 252 (01/03/2010) LDL: 170 (01/03/2010) HDL: 44 (01/03/2010) T (01/03/2010) H gb: 12.0 (04/11/2010) HCT: 38.0 (04/11/2010) RBC: 4.19 (04/11/2010) WBC: 5.1 (04/11/2010) B UN: 27 (04/11/2010) Creat: 1.8 (04/11/2010) Glucose: 146 (04/11/2010) N a+: 143 (04/11/2010) K+: 4.4 (04/11/2010) Cl: 107 (04/11/2010) Mckayla Rod MD pt c/o chest pain: H is updated medication list for this problem includes: Aspirin 81 Mg Tabs (Aspirin) ..... One tab. daily Ranexa 500 Mg Tb12 (Ranolazine) ..... One tab. twice daily for chronic angina BP today: 121/70 Prior BP: 111/60 (01/21/2010) N uclear Stress Findings: 1. Normal Wesly protocol exercise tolerance test. 2 . Normal left ventricular size and function with a calculated ejection fraction of 72%. 3 . Myocardial scintigraphy demonstrates inferior wall ischemia. CNE (01/22/2010) C ardiac Cath: EF - 70% N ormal left venricular systolic function. % LAD stenosis: 70% proximal % CX stenosis: 60% mid. % second Obtuse Marginal stenosis: 100% occluded filled viat rdoh-bf-qokb collaterals % RCA stenosis: 75% mid (06/22/2007) C ardiac Cath Comments: Successful stent to proximal LAD to 3.0 x 23mm Vision stent, and a stent to the mid circumflex with a 3.0 x 16mm Liberte. (06/22/2007) C arotid Doppler/Duplex: normal: (06/08/2007) C HOL: 252 (01/03/2010) LDL: 170 (01/03/2010) HDL: 44 (01/03/2010) T (01/03/2010) H gb: 12.0 (04/11/2010) HCT: 38.0 (04/11/2010) RBC: 4.19 (04/11/2010) WBC: 5.1 (04/11/2010) B UN: 27 (04/11/2010) Creat: 1.8 (04/11/2010) Glucose: 146 (04/11/2010) N a+: 143 (04/11/2010) K+: 4.4 (04/11/2010) Cl: 107 (04/11/2010) Echocardiogram: No evidence of an aneurysm of the abdominal aorta and common illiac arteries. CNE (03/11/2010) Mckayla Rod MD follow up: H is updated medication list for this problem includes: Pravachol Tabs (Pravastatin sodium tabs) ..... One a day Orders: A ortic Abdominal Untrasound (CPT-[id number]) Jose Wang MD follow up: H is updated medication list for this problem includes: Aspirin 81 Mg Tabs (Aspirin) ..... One tab. daily Pravachol Tabs (Pravastatin sodium tabs) ..... One a day Orders: A ortic Abdominal Untrasound (CPT-57247) Jose Wang MD follow up: H is updated medication list for this problem includes: Aspirin 81 Mg Tabs (Aspirin) ..... One tab. daily Pravachol Tabs (Pravastatin sodium tabs) ..... One a day Orders: A ortic Abdominal Untrasound (CPT-22734) Jose Wang MD follow up: H is updated medication list for this problem includes: Aspirin 81 Mg Tabs (Aspirin) ..... One tab. daily Cozaar Tabs (Losartan potassium tabs) ..... One a day Jose Wang MD follow up: H is updated medication list for this problem includes: Aspirin 81 Mg Tabs (Aspirin) ..... One tab. daily Orders: A ortic Abdominal Untrasound (CPT-59927) Jose Wang MD follow up: O rders: A ortic Abdominal Untrasound (CPT-67133) Jose Wang MD follow up: H is updated medication list for this problem includes: Glimepiride 4 Mg Tabs (Glimepiride) ..... Once daily Metformin Hcl 500 Mg Tabs (Metformin hcl) ..... Once daily Aspirin 81 Mg Tabs (Aspirin) ..... One tab. daily Cozaar Tabs (Losartan potassium tabs) ..... One a day Orders: A ortic Abdominal Untrasound (CPT-12098) Jose Wang MD follow up: H is updated medication list for this problem includes: Pravachol Tabs (Pravastatin sodium tabs) ..... One a day Orders: A ortic Abdominal Untrasound (CPT-31456) Jose Wang MD follow up: O rders: A ortic Abdominal Untrasound (CPT-[id number]) Jose Wang MD stable cad: H is updated medication list for this problem includes: Glimepiride 4 Mg Tabs (Glimepiride) ..... Once daily Metformin Hcl 500 Mg Tabs (Metformin hcl) ..... Once daily Aspirin 81 Mg Tabs (Aspirin) ..... One tab. daily Diovan 40 Mg Tabs (Valsartan) ..... One per day (patient allergic to alfredo-i) BP today: 142/78 Prior BP: / () Jose Wang MD stable cad Jose Wang MD stable cad: H is updated medication list for this problem includes: Aspirin 81 Mg Tabs (Aspirin) ..... One tab. daily BP today: 142/78 Prior BP: / () N uclear Stress Findings: EF - 58% N ormal exercise stress EKG. G ood exercise tolerance. S mall to moderate inferior wall ischemia. (06/08/2007) E chocardiogram: EF - 70% M ild left atrial enlargement. (06/08/2007) C ardiac Cath: EF - 70% N ormal left venricular systolic function. % LAD stenosis: 70% proximal % CX stenosis: 60% mid. % second Obtuse Marginal stenosis: 100% occluded filled viat mtfx-ne-wjyl collaterals % RCA stenosis: 75% mid (06/22/2007) C ardiac Cath Comments: Successful stent to proximal LAD to 3.0 x 23mm Vision stent, and a stent to the mid circumflex with a 3.0 x 16mm Liberte. (06/22/2007) Jose Wang MD stable cad: H is updated medication list for this problem includes: Simvastatin 80 Mg Tabs (Simvastatin) ..... Once daily Aspirin 81 Mg Tabs (Aspirin) ..... One tab. daily BP today: 142/78 Prior BP: / () N uclear Stress Findings: EF - 58% N ormal exercise stress EKG. G ood exercise tolerance. S mall to moderate inferior wall ischemia. (06/08/2007) C ardiac Cath: EF - 70% N ormal left venricular systolic function. % LAD stenosis: 70% proximal % CX stenosis: 60% mid. % second Obtuse Marginal stenosis: 100% occluded filled viat vnqu-qg-onqt collaterals % RCA stenosis: 75% mid (06/22/2007) C ardiac Cath Comments: Successful stent to proximal LAD to 3.0 x 23mm Vision stent, and a stent to the mid circumflex with a 3.0 x 16mm Liberte. (06/22/2007) C arotid Doppler/Duplex: normal: (06/08/2007) Jose Wang MD stable cad: H is updated medication list for this problem includes: Simvastatin 80 Mg Tabs (Simvastatin) ..... Once daily Aspirin 81 Mg Tabs (Aspirin) ..... One tab. daily BP today: 142/78 Prior BP: / () N uclear Stress Findings: EF - 58% N ormal exercise stress EKG. G ood exercise tolerance. S mall to moderate inferior wall ischemia. (06/08/2007) C ardiac Cath: EF - 70% N ormal left venricular systolic function. % LAD stenosis: 70% proximal % CX stenosis: 60% mid. % second Obtuse Marginal stenosis: 100% occluded filled viat gsbl-ks-deoi collaterals % RCA stenosis: 75% mid (06/22/2007) C ardiac Cath Comments: Successful stent to proximal LAD to 3.0 x 23mm Vision stent, and a stent to the mid circumflex with a 3.0 x 16mm Liberte. (06/22/2007) C arotid Doppler/Duplex: normal: (06/08/2007) Jose Wang MD stable cad: H is updated medication list for this problem includes: Simvastatin 80 Mg Tabs (Simvastatin) ..... Once daily BP today: 142/78 Prior BP: / () Jose Wang MD stable cad Jose Wang MD stable cad: H is updated medication list for this problem includes: Simvastatin 80 Mg Tabs (Simvastatin) ..... Once daily BP today: 142/78 Prior BP: / () Jose Wang MD today was last day for Plavix-ok to sign:per pmd Jose Wang MD today was last day f or Plavix-ok to sign: H is updated medication list for this problem includes: Aspirin 325 Mg Tabs (Aspirin) ..... One tab daily Quinapril Hcl 5 Mg Tabs (Quinapril hcl) ..... One tab. daily N uclear Stress Findings: EF - 58% N ormal exercise stress EKG. G ood exercise tolerance. S mall to moderate inferior wall ischemia. (06/08/2007) E cho: EF - 70% M ild left atrial enlargement. (06/08/2007) C ardiac Cath: EF - 70% N ormal left venricular systolic function. % LAD stenosis: 70% proximal % CX stenosis: 60% mid. % second Obtuse Marginal stenosis: 100% occluded filled viat cncc-rp-bieh collaterals % RCA stenosis: 75% mid (06/22/2007) C ardiac Cath Comments: Successful stent to proximal LAD to 3.0 x 23mm Vision stent, and a stent to the mid circumflex with a 3.0 x 16mm Liberte. (06/22/2007) non dom rca left alone. 100% om left alone C arotid Doppler/Duplex: normal: (06/08/2007) N uclear Stress Findings: EF - 58% N ormal exercise stress EKG. G ood exercise tolerance. S mall to moderate inferior wall ischemia. (06/08/2007) E cho: EF - 70% M ild left atrial enlargement. (06/08/2007) C ardiac Cath: EF - 70% N ormal left venricular systolic function. % LAD stenosis: 70% proximal % CX stenosis: 60% mid. % second Obtuse Marginal stenosis: 100% occluded filled viat ttnx-ma-jbcl collaterals % RCA stenosis: 75% mid (06/22/2007) C ardiac Cath Comments: Successful stent to proximal LAD to 3.0 x 23mm Vision stent, and a stent to the mid circumflex with a 3.0 x 16mm Liberte. (06/22/2007) C arotid Doppler/Duplex: normal: (06/08/2007) Jose Wang MD :will get stress and echo H is updated medication list for this problem includes: Aspirin 81 Mg Chew (Aspirin) ..... One tab. daily Jose Wang MD Date Name LIPID PANEL LIPID PANEL THYROID PANEL WITH T SH, 3RD GENERATION Complete Echo FERRITIN IRON AND TOTAL IRON BINDING CAPACITY VITAMIN B12 PROTHROMBIN TIME WIT H INR FOLATE, SERUM VITAMIN B12 STR - Adenosine COMPREHENSIVE METABO LIC PANEL, W/EGFR CBC (INCLUDES DIFF/P LT) IRON AND TOTAL IRON BINDING CAPACITY FERRITIN LIPID PANEL URINALYSIS, RANDOM, MICROALB/CREATININE STR - Nuclear Complete Echo Venous Doppler Bilat eral LE - Standing STR - Nuclear Holter Monitor 24 Hr Carotid Duplex Bilat eral Holter Monitor 24 Hr Aortic Abdominal Unt rasound HISTORY OF PROCEDURES Procedure Date Procedure Name Provider Procedure Notes S tatus EKG Jose Wang MD complete d EKG Jose Wang MD complete d Stress EKG Alberta Billings MD completed Regadenoson, 4 units Alberta rhoades MD completed Cardiolite, 2 units Alberta swift MD completed SPECT Images Alberta Billings MD completed EKG Jose Wang MD complete d SNOMED-CT: [id number] Current Medications Documented Jose Wang MD completed SNOMED-CT: [id number] Physical Exam, Performed: Pulse Exam of Foot Jose Wang MD completed EKG Jose Wang MD complete d SNOMED-CT: [id number] Current Medications Documented Jose Wang MD completed EKG Jose Wang MD complete d EKG Jose Wang MD complete d ePrescribe - Check t his box if eRx is used Jose Wang MD completed Lipid Strip Jose Wang MD complet ed EKG Jose Wang MD complete d EKG Jose Wang MD complete d EKG Mckayla Rod MD completed EKG Jose Wang MD complete d
--- OUTSIDE RECORDS SUMMARY | 2024-05-20 11:13 | XMS_ITS | Continuity of Care Document ---
Author Organization [place] [facility] Address [address] [place] [address] Assessment No assessment recorded. Plan of Treatment Reminders Order Date Submit Date Provider Last Modified By Organization Details Last Modified Time Details Appointments None recorded. Lab PSA, total, serum or plasma [address], [address] [place], [address], 5 16:37:17 HbA1c (hemoglobin A1c), blood [address], [address] [place], [address], 5 16:37:17 CMP, serum or plasma [address], [address] [place], [address], 5 16:37:17 lipid panel, serum [address], [address] [place], [address], 5 16:37:17 CBC w/ diff [address], [address] [place], [address], 5 16:37:17 Referral None recorded. Procedures None recorded. Surgeries None recorded. Imaging None recorded. Medication Orders furosemide 40 mg tablet 2024 025 [email or web address] [facility]/Pharmacy #[id number], [address] [place], [address], 5 16:37:17 potassium chloride ER 20 mEq tablet,exte nded release 2024 025 [email or web address] [facility]/Pharmacy #[id number], [address] [place], [address], 5 16:37:17 Patient TargetsNo targets recorded. Patient InstructionsNo instructions recorded. Reason for Referral None Reported. Problems Name Problem SNOMED Code Status Onset Date Resolution Date Notes Provider Name and Address Organization Details Recorded Time Type 2 diabetes mellitus without complication 194482511 Active 2022 Leonard Cage MD Attn: Pam jefferson,[address] [place], [address], [place] [facility] 3 12:07:44 Hypercholester olemia 88466089 Active 2022 Leonard Cage MD Attn: Pam jefferson,[address] [place], [address], [place] [facility] 3 12:07:46 Ulcerative colitis 61178699 Active 2022 Leoanrd Cage MD Attn: Pam jefferson,[address] [place], [address], [place] [facility] 3 12:07:47 Degeneration of lumbar intervertebral disc 71112625 Active 2022 Leonard Cage MD Attn: Pam jefferson,[address] [place], [address], [place] [facility] 3 12:07:50 Erectile dysfunction 692500009 Active 2022 Leonard Cage MD Attn: Pam jefferson,[address] [place], [address], [place] [facility] 3 12:07:51 Bilateral lower leg edema 187726368 Active 2023 Leonard Cage MD Attn: Pam jefferson,[address] [facility], [place], [address], [facility] 4 15:47:39 Notes:Some problems listed i n Documents: #[id number], #[id number] could not be added to this patient's chart. Please review these documents and add these problems to the patient's chart manually as needed. Problem Notes None recorded. Medical Equipment None Reported. Allergies No known drug allergies Medications Name Sig Start Date Stop Date Status Note LastModified by Organization Details LastModified Time furosemide 40 mg tablet Take 1 tablet every day by oral route for 90 days. 2024 active Not Available Not Available Not Avai lable atorvastati n 80 mg tablet TAKE 1 TABLET BY MOUTH EVERY DAY active Not Available Not Available No t Available azithromyci n 250 mg tablet TAKE 2 TABLETS BY MOUTH TODAY, THEN TAKE 1 TABLET DAILY FOR 4 DAYS DIRECTED 03/18 completed Not Available Not Available Not Available citalopram 10 mg tablet TAKE 1 TABLET BY MOUTH EVERY DAY active Not Available Not Available No t Available potassium chloride ER 10 mEq tablet,exte nded release TAKE 1 TABLET BY MOUTH EVERY DAY active Not Available Not Available No t Available metronidazo le 500 mg tablet TAKE 1 TABLET BY MOUTH THREE TIMES A DAY active Not Available Not Available No t Available hydrocodone 10 mg-acetamin ophen 325 mg tablet TAKE 1 TABLET BY MOUTH EVERY 8 HOURS NEEDED FOR PAIN 05/19 completed Not Available Not Available Not Available hydrocortis one 100 mg/60 mL enema USE HALF AN ENEMA NEEDED AT BEDTIME active Not Available Not Available No t Available furosemide 20 mg tablet TAKE 1 TABLET BY MOUTH EVERY DAY active Not Available Not Available No t Available budesonide DR - ER 3 mg capsule,del ayed,extend ed release TAKE 3 CAPSULES BY MOUTH DAILY active Not Available Not Available No t Available metformin ER 500 mg tablet,exte nded release 24 hr TAKE 1 TABLET TWICE A DAY BY ORAL ROUTE FOR 90 DAYS. active Not Available Not Available No t Available lisinopril 2.5 mg tablet TAKE 1 TABLET BY MOUTH EVERY DAY active Not Available Not Available No t Available Remicade inf every 8 wks active Not Available Not Available No t Available Victoza 3-Bhargav 0.6 mg/0.1 mL (18 mg/3 mL) subcutaneou s pen injector INJECT 1.2MG under the skin EVERY DAY active Not Available Not Available No t Available potassium chloride ER 20 mEq tablet,exte nded release Take 1 tablet every day by oral route for 90 days. 2024 active Not Available Not Available Not Avai lable Ozempic 0.25 mg or 0.5 mg (2 mg/1.5 mL) subcutaneou s pen injector Inject 0.5 mg every week by subcutane ous route. 12/27 completed Not Available Not Available Not Available BD Rosalind 2nd Gen Pen Needle 32 gauge x USE DIRECTED WITH VICTOZA active Not Available Not Available No t Available Skyrizi 60 mg/mL intravenous solution active Not Available Not Available Not Available Ozempic 0.25 mg or 0.5 mg (2 mg/3 mL) subcutaneou s pen injector INJECT 0.5 MG EVERY WEEK BY SUBCUTANE OUS ROUTE FOR 90 DAYS. active Not Available Not Available No t Available Vitals Date Recorded Body height Body mass index (BMI) Body weight Oxygen saturation Oxygen saturation in Arterial blood by Pulse oximetry Heart rate Systolic blood pressure Diastolic blood pressure Provider Name and Address Organization Details Last Updated DateTime 179.07 cm 29.1 kg/m2 69553.0 3 g 98 % 98 % 58 /min 120 mm[Hg] 70 mm[Hg] Brittney Ellis MA [place] [facility] 14:50:54 Social History Question Answer Notes LastModified by Organizat ion Details LastModified Time Tobacco Smoking Status Former Smoker Ana Malcolm RN null, [place] [facility] 05/14/2022 11:22:07 What Is Your Level Of Alcohol Consumption? Occasional Information not available 05/14/2022 How Many Years Have You Consumed Alcohol? 30 Information not available 05/14/2022 What Is Your Level Of Caffeine Consumption? Occasional Information not available 05/14/2022 What Was The Date Of Your Most Recent Tobacco Screening? 05/19/2024 [email or web address] Information not available 05/19/2024 At What Age Did You Start Smoking Tobacco? 13 Information not available 05/14/2022 Do You Use Any Illicit Or Recreational Drugs? No Information not available 05/14/2022 Has Tobacco Cessation Counseling Been Provided? No Information not available 05/14/2022 How Many Years Have You Smoked Tobacco? 30 Information not available 05/14/2022 Do You Or Have You Ever Used Any Other Forms Of Tobacco Or Nicotine? No Information not available 05/14/2022 Sex: Male Functional Status None recorded. Mental Status None recorded. Family History Relationship Description Onset Age of this Age Resolved Age Notes LastModified by Organization Details LastModified Time Mother Diabetes mellitus [email or web address] Not available 2022 11:20:38 Mother Heart disease [email or web address] Not available 2022 11:21:09 Father Diabetes mellitus [email or web address] Not available 2022 11:20:48 Father Heart disease [email or web address] Not available 2022 11:21:01 Medical History Condition Response Coronary Artery Disease N Other N Atrial Fibrillation N High Blood Pressure N Thyroid Problems N Kidney or Bladder Problems N GI Problems Y Depression N COPD N Blood Clots N Eating Disorder N Skin Problems N Anemia N Heart Attack ([place]) N Diabetes Y Anxiety Disorder N Muscle, Joint, or Bone Problems N Seizures/Epilepsy N Acid Reflux (GERD) Y Cancer N Stroke N Asthma N Allergies N ADHD N Substance Abuse N High Cholesterol N Hepatitis N Liver Disease N Schizophrenia N Headaches N Osteoporosis N Heart Failure N Immunizations Vaccine Type Date Status Note Provider Nam e and Address Organization Details Recorded Time Influenza, high-dose, quadrivalent, PF 01/02/2020 completed CINDY [place], [place] - [facility] 05/21/2022 11:13:38 Influenza, adjuvanted, quadrivalent, PF 12/26/2020 completed CINDY [place], [place] [facility] 05/21/2022 11:13:38 COVID-19 vaccine, vector-nr, [id number], PF, 0.5 mL 05/25/2020 completed CINDY [place], [place] [facility] 05/21/2022 11:13:38 Tdap 12/03/2017 completed CINDY [place], [place] [facility] 05/21/2022 11:13:38 Past Encounters Encounter ID Performer Location Encounter Start Date Encounter Closed Date Diagnosis/Indication Diagnosis SNOMED-CT Code Diagnosis ICD10 Code Diagnosis Note [id number] Leonard Cage MD [facility] [place] [place] [address] [facility] [place] [address] 05/19/2024 14:37:39 05/20/2024 08:26:23 Bilateral lower leg edema 565023172 R60.0 conditon chronic and not at goal order lasix 40 mg/20 meq kcl per day order cbc Degenerati on of lumbar intervertebral disc 97221781 M51.360 conditon chronic and at goal continue the tylenol prn Hypercholesterolemia 136 11302 E78.00 conditon chronic and at goal continue the atorvastat in my rx order lipid panel, cmp Type 2 lashawn betes mellitus without complication 020878458 E11.9 conditon chroinc and not at goal ozympic 0.5 mg per week order hem a1c Ulcerative colitis 16482 004 K51.90 condition chronic and at goal continue the remicaide nad continue the steroids prn Screening for malignant neoplasm of prostate 088739694 Z12.5 order psa Health Concerns Section Related Observation LastModified by Organization Detai ls LastModified Time None Recorded Concern Status LastModified by Organization Details LastModified Time None Recorded Payers Encounter Date Sequence Insurance Name Policy Number Policy Ramirez Covered Member ID Ramirez Member ID Guarantor Name 05/19/2024 1 [facility] (MEDICARE REPLACEMENT/A DVANTAGE - HMO) [id number] Bairon Ramey [id number] Bairon Ramey Notes Date Note Type Note Provider Name and Address Organization Details Recorded Time 05/19/2024 text/html states that he is doing good adn the bs are under control the chol and hte lumbar back pain is under control the uc is stable has swelling in the ankles a1c is 6.1 Leonard Cage MD Attn: [address] [place], [address], [facility] [place] 05/19/2024 18:20:07
--- OUTSIDE RECORDS SUMMARY | 2024-05-20 11:13 | XMS_ITS | Encounter Summary ---
Author Organization [facility] Care Team Providers Care Medicare Coordinator Name Role Phone Leonard Cage MD Primary Care Provider [phone] Leonard Cage MD Primary Care Provider [phone] Leonard Cage MD Unavailable [phone] Luis Alejandro DPM Primary Care Provider [phone] Encounter Details Date Type Department Care Team (Latest Contact Info) Description 09/03/2017 Orders Only [facility] ProviderKay MD [address] [place] [address] Social History Tobacco Use Types Packs/Day Years Used Date Smoking Tobacco: Never Assessed Sex and Gender Information Value Date Recorded Sex Assigned at Not on file Legal Sex Male 12:24 AM [employer]NA[employer] Gender Identity Male 06/09/2021 8:03 AM CDT Sexual Orientation Bisexual 06/09/2021 8: 03 AM CDT documented as of this encounter Plan of Treatment Not on file documented as of this encounter Procedures Procedure Name Priority Date/Time Associated Diagnosis Comments SCAN - LABS 09/03/2017 12:00 AM CDT documented in this encounter Results * SCAN - LABS (09/03/2017 12:00 AM CDT) Narrative 09/03/2017 12:00 AM CDT Ordered by an unspecified provider. us Historical Provider Final Res ult documented in this encounter Visit Diagnoses Not on filedocumented in this encounter Care Teams Medicare Coordinator Relationship Specialty Start Date End Date Leonard Cage MD PCP - General 07/07/17 08/04/18 Leonard Cage MD PCP - General Family Medicine 08/05/18 10/27/18 Luis Alejandro DPM [address] [place] [address] PCP - General Orthotics 10/28/18 03/31/19 Leonard Cage MD 08/05/18 08/05/18 documented as of this encounter
--- OUTSIDE RECORDS SUMMARY | 2024-05-20 11:13 | XMS_ITS | Data Portability ---
Author Organization [facility] Address [address] [place] [address] Assessment No assessment recorded. Plan of Treatment Reminders Order Date Submit Date Provider Last Modified By Organization Details Last Modified Time Details Appointments None recorded. Lab PSA, total, serum or plasma [address], [address] [place], [address], 5 16:37:17 HbA1c (hemoglobin A1c), blood [address], [address] [place], [address], 5 16:37:17 CMP, serum or plasma [address], [address] [place], [address], 5 16:37:17 lipid panel, serum [address], [address] [place], [address], 5 16:37:17 CBC w/ diff [address], [address] [place], [address], 5 16:37:17 HbA1c (hemoglobin A1c), blood 2023 024 [email or web address] In-Office Order, Internal Use Only DO Not Attach Compendium DO Not Attach Compendium, Do Not Delete/merge, [id number] 4 16:48:30 PSA, total, serum or plasma 2022 023 [facility], [address] [place], [address], 3 17:16:39 CBC w/ auto diff 2022 023 [facility], [address] [place], [address], 3 17:11:15 HbA1c (hemoglobin A1c), blood 2022 023 [email or web address] In-Office Order, Internal Use Only DO Not Attach Compendium DO Not Attach Compendium, Do Not Delete/merge, [id number] 3 12:32:35 lipid panel, serum 2022 023 [facility], [address] [place], [address], 3 17:11:14 CMP, serum or plasma 2022 023 [facility], [address] [place], [address], 3 16:56:25 PSA, total, serum or plasma 2022 023 [email or web address] [facility], [address] [place], [address], 3 13:09:38 Referral None recorded. Procedures None recorded. Surgeries None recorded. Imaging XR, chest, 2 view 2022 023 [facility] (Im[facility]), [address] [place], [address], 3 14:58:10 Medication Orders furosemide 40 mg tablet 2024 025 [email or web address] [facility] #[id number], [address] [place], [address], 5 16:37:17 potassium chloride ER 20 mEq tablet,exte nded release 2024 025 [email or web address] [facility] #[id number], [address] [place], [address], 5 16:37:17 furosemide 20 mg tablet 2023 024 [email or web address] [facility] #[id number], [address] [place], [address], 4 16:48:30 Klor-Con 10 mEq tablet,exte nded release 2023 024 [email or web address] [facility] #[id number], [address] [place], [address], 4 10:29:03 Victoza 3-Bhargav 0.6 mg/0.1 mL (18 mg/3 mL) subcutaneou s pen injector 2023 024 [facility], [address] [place] [address], [address], 4 13:12:02 Victoza 3-Bhargav 0.6 mg/0.1 mL (18 mg/3 mL) subcutaneou s pen injector 2022 023 [email or web address] [facility][id number], [address] [place], [address], 3 12:32:35 metformin ER 500 mg tablet,exte nded release 24 hr 2022 023 [email or web address] [facility] #[id number], [address] [place] [address], [address], 3 13:09:38 Ozempic 0.25 mg or 0.5 mg (2 mg/1.5 mL) subcutaneou s pen injector 2022 023 [email or web address] [id number], [address] [place], [address], 16:47:56 lisinopril 2.5 mg tablet 2022 023 [email or web address] [facility][id number], [address] [place], [address], 13:09:38 Patient TargetsNo targets recorded. Patient Instructions Encounter Date Encounter Id Patient Instructions Last Modified By Organization Details Last Modified Time 06/17/2023 [id number] A healthy lifestyle: care instructions [email or web address] Not available 02/03/2024 11:49:55 Reason for Referral None Reported. Results Created Date Observation Date Name Description Value Unit Range Abnormal Flag Note LastModifiedBy Organization Detail LastModifiedTime 12/17/1912/16/2022 HbA1c (hemo globi n A1c), blood HbA1c 5.8 Not Available In-Office Order Internal Use Only DO Not Attach Compendium DO Not Attach Compendium, Do Not Delete/merge, [id number] 12/16/2022 11:36:22 05/27/19 24 05/27/2023 CBC JALEN lo panel - Cord blood WBC 7.1 10^3u L low: 4.810^ 3uLhig h: 10.810 ^3uL WBC 7.1 10^3u L L=4.8 H=10. 8 Not Available Not Available 05/19/2024 03:39:34 05/27/19 24 05/27/2023 CBC WO Souleymane causey al panel - Cord blood RBC 4.56 10^6u L low: 4.610^ 6uLhig h: 6.210^ 6uL low RBC 4.56 10^6u L L=4.6 0 H=6.2 0 L Not Available Not Available 05/19/2024 03:39:34 05/27/19 24 05/27/2023 CBC JALEN Souleymane lo panel - Cord blood hemoglobin [mass/volume ] in blood 13.7 g/dL low: 14g/dL high: 18g/dL low HEMOG LOBIN 13.7 g/dL L=14. 0 H=18. 0 718-7 LOINC L Not Available Not Available 05/19/2024 03:39:34 05/27/19 24 05/27/2023 CBC Souleymane lo panel - Cord blood hematocrit [volume fraction] of blood by automated count 41.4 vol% low: 42vol% high: 52vol% low HEMAT OCRIT 41.4 VOL% L=42. 0 H=52. 0 4544- 3 LOINC L Not Available Not Available 05/19/2024 03:39:34 05/27/19 24 05/27/2023 CBC JALEN lo panel - Cord blood MCV 90.8 fL low: 80fLhi gh: 94fL MCV 90.8 fL L=80. 0 H=94. 0 Not Available Not Available 05/19/2024 03:39:34 05/27/19 24 05/27/2023 CBC JALEN Souleymane lo panel - Cord blood MCH 30 pg low: 27pghi gh: 32pg MCH 30.0 pg L=27. 0 H=32. 0 Not Available Not Available 05/19/2024 03:39:34 05/27/19 24 05/27/2023 [facility] JALEN lo panel - Cord blood MCHC 33.1 g/dL low: 32g/dL high: 36g/dL MCHC 33.1 g/dL L=32. 0 H=36. 0 Not Available Not Available 05/19/2024 03:39:34 05/27/19 24 05/27/2023 CBC Souleymane lo panel - Cord blood transfuse leukocyte-po or platelets units [#] 217 10^3u L low: 64814^ 3uLhig h: 22004^ 3uL PLATE LETS 217 10^3u L L=100 H=400 89222 -5 LOINC Not Available Not Available 05/19/2024 03:39:34 05/27/19 24 05/27/2023 CBC JALEN lo panel - Cord blood RDW 14.1 % low: 11.7%h igh: 15.5% RDW 14.1 % L=11. 7 H=15. 5 Not Available Not Available 05/19/2024 03:39:34 05/27/19 24 05/27/2023 Compr [employer] frank metab olic 1999 panel - Serum or Plasm a fasting NO FASTI NG NO Not Available Not Available 05/19/2024 03:39:34 05/27/19 24 05/27/2023 Compr ehens frank metab olic 1999 panel - Serum or Plasm a urea nitrogen [mass/volume ] in serum or plasma 19 mg/dL low: 7mg/dL high: 20mg/d L BUN 19 mg/dL L=7 H=20 3094- 0 LOINC Not Available Not Available 05/19/2024 03:39:34 05/27/19 24 05/27/2023 Compr [employer] frank metab olic 1999 panel - Serum or Plasm a creatinine [mass/volume ] in serum or plasma 0.7 mg/dL low: 0.66mg /dLhig h: 1.25mg /dL CREAT ININE 0.70 mg/dL L=0.6 6 H=1.2 5 2160- 0 LOINC Not Available Not Available 05/19/2024 03:39:34 05/27/19 24 05/27/2023 Compr [employer] frank metab olic 1999 panel - Serum or Plasm a glucose [mass/volume ] in serum or plasma 120 mg/dL low: 74mg/d Lhigh: 106mg/ dL high GLUCO SE 120 mg/dL L=74 H=106 2345- 7 LOINC H Not Available Not Available 05/19/2024 03:39:34 05/27/19 24 05/27/2023 Compr ehens frank metab olic 1999 panel - Serum or Plasm a sodium [moles/volum e] in serum or plasma 141 mmol/ L low: 132mmo l/Lhig h: 144mmo l/L SODIU M 141 mmol/ L L=132 H=144 2951- 2 LOINC Not Available Not Available 05/19/2024 03:39:34 05/27/19 24 05/27/2023 Compr ehens frank metab olic 2000 panel - Serum or Plasm a potassium [moles/volum e] in serum or plasma 3.9 mmol/ L low: 3.5mmo l/Lhig h: 5.1mmo l/L POTAS SIUM 3.9 mmol/ L L=3.5 H=5.1 2823- 3 LOINC Not Available Not Available 05/19/2024 03:39:34 05/27/19 24 05/27/2023 Compr ehens frank metab olic 1999 panel - Serum or Plasm a chloride [moles/volum e] in serum or plasma 107 mmol/ L low: 98mmol /Lhigh : 107mmo l/L CHLOR CHEIKH 107 mmol/ L L=98 H=107 2074- 0 LOINC Not Available Not Available 05/19/2024 03:39:34 05/27/19 24 05/27/2023 Compr ehens frank metab olic 1999 panel - Serum or Plasm a carbon dioxide, total [moles/volum e] in serum or plasma 25 mmol/ L low: 22mmol /Lhigh : 30mmol /L CO2 25.0 mmol/ L L=22. 0 H=30. 0 LOINC Not Available Not Available 05/19/2024 03:39:34 05/27/19 24 05/27/2023 Compr ens frank metab olic 1999 panel - Serum or Plasm a anion gap in serum or plasma 13 low: 10high : 20 ANION GAP 13 L=10 H=20 07326 -3 LOINC Not Available Not Available 05/19/2024 03:39:34 05/27/19 24 05/27/2023 Compr ens frank metab olic 2000 panel - Serum or Plasm a osmolality of serum or plasma by calculation 295 mos/k g low: 280mos /kghig h: 296mos /kg OSMOL ALITY 295 mOs/k G L=280 H=296 89703 -6 LOINC Not Available Not Available 05/19/2024 03:39:34 05/27/19 24 05/27/2023 Compr ehens frank metab olic 2000 panel - Serum or Plasm a urea nitrogen/cre atinine [mass ratio] in serum or plasma 27.1 BUN/C REAT 27.1 3097- 3 LOINC Not Available Not Available 05/19/2024 03:39:34 05/27/19 24 05/27/2023 Compr ehens frank metab olic 1999 panel - Serum or Plasm a calcium [mass/volume ] in serum or plasma 9.3 mg/dL low: 8.3mg/ dLhigh : 10.5mg /dL CALCI UM 9.3 mg/dL L=8.3 H=10. 5 32595 -6 LOINC Not Available Not Available 05/19/2024 03:39:34 05/27/19 24 05/27/2023 Compr ehens frank metab olic 1999 panel - Serum or Plasm a aspartate aminotransfe rase [enzymatic activity/vol ume] in serum or plasma 29 U/L low: 15U/Lh igh: 46U/L AST 29 U/L L=15 H=46 1920- 8 LOINC Not Available Not Available 05/19/2024 03:39:34 05/27/19 24 05/27/2023 Compr ens frank metab olic 1999 panel - Serum or Plasm a alanine aminotransfe rase [enzymatic activity/vol ume] in serum or plasma 20 U/L low: 9U/Lhi gh: 72U/L ALT 20 U/L L=9 H=72 1742- 6 LOINC Not Available Not Available 05/19/2024 03:39:34 05/27/19 24 05/27/2023 Compr ens frank metab olic 1999 panel - Serum or Plasm a alkaline phosphatase [enzymatic activity/vol ume] in serum or plasma 82 U/L low: 38U/Lh igh: 126U/L ALKAL INE PHOS 82 U/L L=38 H=126 6768- 6 LOINC Not Available Not Available 05/19/2024 03:39:34 05/27/19 24 05/27/2023 Compr ehens frank metab olic 1999 panel - Serum or Plasm a bilirubin.to ollie [mass/volume ] in serum or plasma 1.5 mg/dL low: 0.2mg/ dLhigh : 1.3mg/ dL high TOTAL BILI 1.5 mg/dL L=0.2 H=1.3 1975- 2 LOINC H Not Available Not Available 05/19/2024 03:39:34 05/27/19 24 05/27/2023 Compr ehens frank metab ol 2000 panel - Serum or Plasm a albumin [mass/volume ] in serum or plasma 3.8 g/dL low: 3.5g/d Lhigh: 5g/dL ALBUM IN 3.8 G/dL L=3.5 H=5.0 1751- 7 LOINC Not Available Not Available 05/19/2024 03:39:34 05/27/19 24 05/27/2023 Compr ehens frank metab ol 2000 panel - Serum or Plasm a protein [mass/volume ] in serum or plasma 6.8 g/L low: 6.3g/L high: 8.2g/L TOTAL PROTE IN 6.8 g/L L=6.3 H=8.2 2885- 2 LOINC Not Available Not Available 05/19/2024 03:39:34 05/27/19 24 05/27/2023 Compr [employer] frank metab [facility] 2000 panel - Serum or Plasm a A/G ratio 1.3 A/G RATIO 1.3 32472 -6 LOINC Not Available Not Available 05/19/2024 03:39:34 05/27/19 24 05/27/2023 Compr ens frank metab [facility] 2000 panel - Serum or Plasm a age - reported 78 AGE 78 [address]3962 -7 LOINC Not Available Not Available 05/19/2024 03:39:34 05/27/19 24 05/27/2023 Compr [employer] frank metab ic 2000 panel - Serum or Plasm a eGFR non-afr 116 mL/mi n eGFR NON-A FR 116 ml/mi n Not Available Not Available 05/19/2024 03:39:34 05/27/19 24 05/27/2023 Compr [employer] frank [employer] [facility] 2000 panel - Serum or Plasm a eGFR afr amer 140 mL/mi n eGFR AFR AMER 140 ml/mi n Not Available Not Available 05/19/2024 03:39:34 06/17/19 24 06/17/2023 HbA1c (hemo globi n A1c), blood HbA1c 6.0 Not Available In-Office Order Internal Use Only DO Not Attach Compendium DO Not Attach Compendium, Do Not Delete/merge, [id number] 06/17/2023 15:53:13 12/17/19 23 12/16/2022 XR, chest , 2 view No observ ation record ed. [email or web address] [facility] [address] [place], [address], 12/16/2022 17:51:27 12/18/19 23 12/16/2022 XR, chest , 2 view No observ ation record ed. [email or web address] [facility] [address] [place], [address], 12/17/2022 14:25:22 Result Notes None recorded. Problems Name Problem SNOMED Code Status Onset Date Resolution Date Notes Provider Name and Address Organization Details Recorded Time Type 2 diabetes mellitus without complication 556682052 Active 2022 Leonard Cage MD Attn: Pam jefferson,[address] [place], [address], [place] [facility] 3 12:07:44 Hypercholester olemia 81732182 Active 2022 Leonard Cage MD Attn: Pam jefferson,[address] [place], [address], [place] [facility] 3 12:07:46 Ulcerative colitis 42431707 Active 2022 Leonard Cage MD Attn: Pam jefferson,[address] [place], [address], [place] [facility] 3 12:07:47 Degeneration of lumbar intervertebral disc 09191511 Active 2022 Leonard Cage MD Attn: Pam jefferson,[address] [place], [address], [place] [facility] 3 12:07:50 Erectile dysfunction 761634312 Active 2022 Leonard Cage MD Attn: Pam jefferson,[address] [place], [address], [place] [facility] 3 12:07:51 Bilateral lower leg edema 523330448 Active 2023 Leonard Cage MD Attn: Pam jefferson,[address] [place], [address], [place] - [facility] 4 15:47:39 Notes:Some problems listed i n Documents: #[id number], #[id number] could not be added to this patient's chart. Please review these documents and add these problems to the patient's chart manually as needed. Problem Notes None recorded. Procedures Surgical History None recorded. Imaging Results Imaging Date Name Status [facility]Modified by [facility] Details LastModified Time 12/16/2022 XR, chest, 2 view completed [address] [place], [address], 12/16/2022 17:51:27 12/16/2022 XR, chest, 2 view completed [address] [place], [address], 12/17/2022 14:25:22 Procedure Notes None recorded. Medical Equipment None Reported. [...] 2nd Gen Pen Needle 32 gauge x 32 USE DIRECTED WITH VICTOZA active Not Available Not Available No t Available Skyrizi 60 mg/mL intravenous solution active Not Available Not Available Not Available Ozempic 0.25 mg or 0.5 mg (2 mg/3 mL) subcutaneou s pen injector INJECT 0.5 MG EVERY WEEK BY SUBCUTANE OUS ROUTE FOR 90 DAYS. active Not Available Not Available No t Available Vitals Date Recorded Body weight Body temperature Respiratory rate Heart rate Oxygen saturation Oxygen saturation in Arterial blood by Pulse oximetry Body height Body mass index (BMI) Systolic blood pressure Diastolic blood pressure Provider Name and Address Organization Details Last Updated DateTime 3 926223. 02 g 97.7 [degF] 18 /min 79 /min 97 % 97 % 179.07 cm 33 kg/m2 156 mm[Hg] 64 mm[Hg] Ana Malcolm RN [place] [facility] 3 11:17:43 Date Recorded Body height Body mass index (BMI) Body weight Body temperature Oxygen saturation Oxygen saturation in Arterial blood by Pulse oximetry Heart rate Systolic blood pressure Diastolic blood pressure Provider Name and Address Organization Details Last Updated DateTime 3 179.07 cm 27.7 kg/m2 39540.1 g 97.6 [degF] 98 % 98 % 72 /min 130 mm[Hg] 70 mm[Hg] Brittney Ellis MA [facility] 3 10:40:54 Date Recorded Body height Body mass index (BMI) Body weight Oxygen saturation Oxygen saturation in Arterial blood by Pulse oximetry Heart rate Systolic blood pressure Diastolic blood pressure Provider Name and Address Organization Details Last Updated DateTime 4 179.07 cm 28.3 kg/m2 40396.4 7 g 99 % 99 % 68 /min 122 mm[Hg] 82 mm[Hg] Kate Pro MA [facility] 4 11:35:43 Date Recorded Body height Body mass index (BMI) Body weight Respiratory rate Body temperature Oxygen saturation Oxygen saturation in Arterial blood by Pulse oximetry Heart rate Systolic blood pressure Diastolic blood pressure Provider Name and Address Organization Details Last Updated DateTime 4 179.07 cm 28.1 kg/m2 80847.8 8 g 16 /min 97.9 [degF] 99 % 99 % 74 /min 124 mm[Hg] 76 mm[Hg] Cassy Thompson [facility] 4 15:09:04 Date Recorded Body height Body mass index (BMI) Body weight Oxygen saturation Oxygen saturation in Arterial blood by Pulse oximetry Heart rate Systolic blood pressure Diastolic blood pressure Provider Name and Address Organization Details Last Updated DateTime 5 179.07 cm 29.1 kg/m2 25606.0 3 g 98 % 98 % 58 /min 120 mm[Hg] 70 mm[Hg] Brittney Ellis MA [facility] 5 14:50:54 Social History Question Answer Notes LastModified by Organizat ion Details LastModified Time Tobacco Smoking Status Former Smoker Ana Malcolm RN null, [facility] 05/14/2022 11:22:07 What Is Your Level Of [...] Response Coronary Artery Disease N Other N High Blood Pressure N Atrial Fibrillation N Thyroid Problems N Kidney or Bladder Problems N GI Problems Y Depression N COPD N Blood Clots N Skin Problems N Eating Disorder N Anemia N Heart Attack (MD) N Anxiety Disorder N Diabetes Y Muscle, Joint, or Bone Problems N Seizures/Epilepsy N Acid Reflux (GERD) Y Cancer N Stroke N Asthma N Allergies N ADHD N Substance Abuse N High Cholesterol N Hepatitis N Liver Disease N Schizophrenia N Headaches N Heart Failure N Osteoporosis N Immunizations Vaccine Type Date Status Note Provider Nam e and Address Organization Details Recorded Time Influenza, high-dose, quadrivalent, PF 01/02/2020 completed Kate Pro [place] null, [place] [facility] 05/21/2022 11:13:38 Influenza, adjuvanted, quadrivalent, PF 12/26/2020 completed Kate Pro [place], [place] [facility] 05/21/2022 11:13:38 COVID-19 vaccine, vector-nr, rS-Ad26, PF, 0.5 mL 05/25/2020 completed Kate Pro [place], [place] [facility] 05/21/2022 11:13:38 Tdap 12/03/2017 completed Kate Pro [place], [place] [facility] 05/21/2022 11:13:38 Past Encounters Encounter ID Performer Location Encounter Start Date Encounter Closed Date Diagnosis/Indication Diagnosis SNOMED-CT Code Diagnosis ICD10 Code Diagnosis Note [id number] Leonard Cgae MD [facility] [address] [address] 05/14/2022 10:42:29 05/15/2022 11:11:22 Type 2 diabetes mellitus without complication 835054834 E11.9 conditon chroinc and at goal hem a1c is utd refill the metformin and the ozympic refilled. oder lisinopril 2.5 mg Hypercholesterolemia 136 93016 E78.00 conditon chronic and at goal continue the atorvastat in Ulcerative colitis 37263 004 K51.90 condition chronic and at goal continue the remicaide Screening for malignant neoplasm of prostate 476039904 Z12.5 order psa Degenerati on of lumbar intervertebral disc 44862186 M51.36 condition chronic and at goal continue the norco prn Erectile dysfunction 860 789775 F52.21 conditon chroinc and not at goal due to diabetes order the penil vaccuum pump [id number] Leonard Cage MD [facility] [address] [address] 12/16/2022 10:27:48 12/17/2022 08:20:16 Degeneration of lumbar intervertebral disc 72554777 M51.36 condition chronic and at goal continue the norco prn Erectile dysfunction 860 185104 F52.21 conditon chroinc and not at goal due to diabetes order the penil vaccuum pump Hypercholesterolemia 136 85507 E78.00 conditon chronic and at goal continue the atorvastat in order lipid panel, cmp Type 2 lashawn betes mellitus without complication 571837448 E11.9 conditon chroinc and at goal hem a1c is utd stop the metformin and start victoza. oder lisinopril 2.5 mg order hem a1c Ulcerative colitis 07825 004 K51.90 condition chronic and at goal continue the remicaide order cbc Screening for malignant neoplasm of prostate 076983897 Z12.5 order psa Cough 00676011 R05.9 conditon chroin cand not at goal order cxr Impacted c erumen of bilateral ears 5767821160 180945 H61.23 conditiona cute clean bilateral ears. the bilateral external auditory canals are irrigated with normal saline and a currette is used to remove the cerumen boluses intact. [id number] Leonard Cage MD [facility] [address] [place] [address] 03/18/2023 10:54:54 03/19/2023 09:11:32 Degeneration of lumbar intervertebral disc 37964427 M51.36 condition chronic and at goal continue the norco prn Type 2 lashawn betes mellitus without complication 351280255 E11.9 conditon chroinc and not at goal stop the victoza and start ozympic 0.5 mg per week Ulcerative colitis 91030 K51.90 condition chronic and at goal continue the remicaide nad continue the norco prn Hypercholesterolemia 136 57858 E78.00 conditon chronic and at goal continue the atorvastat in Erectile dysfunction 860 465529 F52.21 conditon chroinc and not at goal due to diabetes order the penil vaccuum pump [id number] Cassy hTompson [facility] [address] [place] [address] 06/17/2023 14:23:43 06/18/2023 11:22:07 Type 2 diabetes mellitus without complication 867830350 E11.9 conditon chroinc and not at goal ozympic 0.5 mg per week order hem a1c Erectile dysfunction 860 098007 F52.21 conditon chroinc and not at goal due to diabetes order the penil vaccuum pump Ulcerative colitis 13938 004 K51.90 condition chronic and at goal continue the remicaide nad continue the norco prn Hypercholesterolemia 136 63034 E78.00 conditon chronic and at goal continue the atorvastat in my rx Degenerati on of lumbar intervertebral disc 94228007 M51.36 condition chronic and at goal continue the norco prn Bilateral lower leg edema 743517035 R60.0 conditon chronic and not at goal order lasix 20 mg/kcl 10 meq per day Overweight 030040672 E66 .3 [id number] Leonard Cage MD [facility] - Kaity osorio [place] II [address] [facility] [address] [place] [address] 05/19/2024 14:37:39 05/20/2024 08:26:23 Bilateral lower leg edema 963100635 R60.0 conditon chronic and not at goal order lasix 40 mg/20 meq kcl per day order cbc Degenerati on of lumbar intervertebral disc 29401995 M51.360 conditon chronic and at goal continue the tylenol prn Hypercholesterolemia 136 25349 E78.00 conditon chronic and at goal continue the atorvastat in my rx order lipid panel, cmp Type 2 lashawn betes mellitus without complication 768503064 E11.9 conditon chroinc and not at goal ozympic 0.5 mg per week order hem a1c Ulcerative colitis 78897 004 K51.90 condition chronic and at goal continue the remicaide nad continue the steroids prn Screening for malignant neoplasm of prostate 185993576 Z12.5 order psa Health Concerns Section Related Observation LastModified by Organization Detai ls LastModified Time None Recorded Concern Status LastModified by Organization Details LastModified Time None Recorded Advance Directives Directive None Recorded Payers Encounter Date Sequence Insurance Name Policy Number Policy Ramirez Covered Member ID Ramirez Member ID Guarantor Name 05/14/2022 2 MEDICARE B: [employer] - [employer] MEDICARE Bairon Ramey [id number] Bairon Ramey 05/14/2022 1 [facility] (MEDICARE REPLACEMENT/A DVANTAGE - HMO) [id number] Bairon Ramey [id number] Bairon Ramey 12/16/2022 2 [facility] MEDIC[facility] Bairon Ramey [id number] Bairon Ramey 12/16/2022 1 [facility] (MEDICARE REPLACEMENT/A DVANTAGE - HMO) [id number] Bairon Ramey [id number] Bairon Ramey 03/18/2023 2 MEDICARE B: [place] [employer] - [employer] MEDICARE Bairon Ramey [id number] Bairon Ramey 03/18/2023 1 [facility] (MEDICARE REPLACEMENT/A DVANTAGE - HMO) [id number] Bairon Ramey [id number] Bairon Ramey 06/17/2023 1 [facility] (MEDICARE REPLACEMENT/A DVANTAGE - HMO) [id number] Bairon Ramey [id number] Bairon Ramey 05/19/2024 1 [facility] (MEDICARE REPLACEMENT/A DVANTAGE - HMO) [id number] Bairon Ramey [id number] Bairon Ramey Notes Date Note Type Note Provider Name and Address Organization Details Recorded Time 05/14/2022 text/html returns to the office for repeat evaluatoin states that the bs are under control the hem a1c is under control hte lumbar back pain is under control the lipids are under control the uc is under control taking his meds as directed. the gerd is under control the ed due to the diabetes is under control Leonard Cage MD Attn: Accounting,[address] [place], [address], [facility] 05/14/2022 18:48:24 12/16/2022 text/html returns to the office for repeat evlautoin staets taht the bs are in the 100-130 range. rosa m lumbar back pain is udner control the ed is st[place] the chol is under control the uc is under control taking his meds as directed. colo is scheduled has a chroinc cough Leonard Cage MD Attn: Accounting,[address] [place], [address], [facility] [facility] 12/16/2022 13:52:03 03/18/2023 text/html states that the victoza is not working. the bs are in the 170 range nad not coming down the lumbar back pain continues the ed is under control adn the chol. rosa m uc is under control Leonard Cage MD Attn: Accounting,[address] [place], [address], [facility] 03/18/2023 18:18:52 06/17/2023 text/html states that he i s doing good and the bs are under control the lumbar back pain is under conrol hte ed is under control and the chol is under control the uc is being treated. has swelling of hte legs. the colo is under [place], [place] - [facility] 02/03/2024 11:43:20 05/19/2024 text/html states that he i s doing good adn the bs are under control the chol and hte lumbar back pain is under control the uc is stable has swelling in the ankles a1c is 6.1 Leonard Cage MD Attn: Accounting,[address] [place], [address], [facility] - [facility] 05/19/2024 18:20:07
--- OUTSIDE RECORDS SUMMARY | 2024-05-20 11:13 | XMS_ITS ---
Author Organization Unknown Address [address] [place] [address] [phone] Phone Care Team Providers Care Medical Collections Name Role Phone BARBARA Null Attending Unavailable DINO LIMON FINANCIAL ASSISTANCE ADVISOR Unavailable CARRIE MORRIS Primary Unavailable Immunization Immunization Date Status Additional Notes Code Code System Tdap 12/03/2017 Completed 115 CVX Tdap 10/15/2023 Completed 115 CVX Influenza, high-dose, quadrivalent, PF 01/02/2020 Completed 197 CVX Influenza, adjuvanted, quadrivalent, PF 12/26/2020 Completed 205 CVX COVID-19 vaccine, vector-nr, rS-Ad26, PF, 0.5 mL 05/25/2020 Completed 212 CVX Results BEDSIDE GLUCOSE - Collect Da te/Time: 12/25/2022 08:38 [facility] ID: [id number] [address] [place] [address], [id number] LOINC: 92603-2 Test Value Unit Reference Range Code Code System Flag BEDSIDE GLUCOSE 113 mg/dl L=74 H=106 01791-9 LOINC H BEDSIDE GLUCOSE - Collect Da te/Time: 12/25/2022 07:02 [facility] ID: [id number] [address] [place] [address], [id number] LOINC: 49615-9 Test Value Unit Reference Range Code Code System Flag BEDSIDE GLUCOSE 103 mg/dl L=74 H=106 43603-6 LOINC Social History Type Status Start Date End Date Code Code Syst em Smoking History Former smoker 3325237 SNOMED CT Sex Male Vital Signs Vital Sign Value Unit Wanchese Value Wanchese Unit Date/Time Recent/Initial? Code Code System Body Mass Index 27.26 kg/m2 12/25/2022 07:42 Most Recent 63512 -5 LOINC Body Mass Index 28.12 kg/m2 12/12/2022 13:49 Initial 37139 -5 LOINC Systolic Blood Pressure 131 mm[Hg] 12/25/2022 07:41 Initial 8480- 6 LOINC Diastolic Blood Pressure 63 mm[Hg] 12/25/2022 07:41 Initial 8462- 4 LOINC Body Surface Area 2.06 m2 12/25/2022 07:42 Most Recent 3140- 1 LOINC Body Surface Area 2.10 m2 12/12/2022 13:49 Initial 3140- 1 LOINC Height 177.800 0 cm 70.00 in 12/25/2022 07:42 Most Recent 8302- 2 LOINC Height 177.800 0 cm 70.00 in 12/12/2022 13:49 Initial 8302- 2 LOINC O2 Saturation 97 % 2022 07:41 Initial 85303 -5 LOINC Pulse 56.0 /min 12/25/2022 07:41 Initial 8867- 4 LOINC Respiration 16 /min 12/26/19 07:41 Initial 9279- 1 LOINC Temperature 36.5 Basia 97.7 F 12/26/19 07:41 Initial 8310- 5 LOINC Weight 86.18 kg 190.00 lbs 12/25/2022 07:42 Most Recent 87337 -7 LOINC Weight 88.90 kg 196.00 lbs 12/12/2022 13:49 Initial 36433 -7 [facility] Medications Medication Start Date End Date Route Frequency Dose Code Code System Medication Instructions Home Meds Atorvastatin Calcium 80MG Oral Tablet 06/08/2020 Unknown ORAL ONCE A DAY 80 MILLIGRAMS 040417 RxNorm TAKE 80 MILLIGRAMS ORAL ONCE A DAY metFORMIN HCl 500MG Oral Tablet, Extended Release 06/08/2020 08/12/19 24 ORAL TWICE A DAY 500 MILLIGRAMS 412072 RxNorm TAKE 500 MILLIGRAMS ORAL TWICE A DAY Remicade 100MG Intravenous Powder for Solution 12/25/2022 08/12/19 24 INTRAVE NOUS EVERY 8 WEEKS 100 MILLIGRAMS 126296 RxNorm 100 MILLIGRAMS INTRAVENOUS EVERY 8 WEEKS Budesonide 3MG Oral Capsule, Delayed Release 08/27/2023 12/03/19 24 ORAL THREE TIMES A DAY 3 MILLIGRAMS 9886391 RxNorm TAKE 3 MILLIGRAMS ORAL THREE TIMES A DAY Ozempic 0.25 MG or 0.5 MG Doses 2 MG/3 ML Subcutaneous Solution 08/27/2023 12/03/19 24 SUBCUTA NEOUS ONCE A WEEK 1 unit(s) 9776301 RxNorm INJECT INTO 1 EACH SUBCUTANEOUS ONCE A WEEK Vitamin D3 10 MCG Oral Tablet 08/27/2023 Unknown ORAL ONCE A DAY 10 MCG 429990 RxNorm TAKE 10 MCG ORAL ONCE A DAY metFORMIN HCl 500MG Oral Tablet 08/27/2023 12/03/19 24 ORAL TWICE A DAY 500 MILLIGRAMS 179144 RxNorm TAKE 500 MILLIGRAMS ORAL TWICE A DAY Cortenema 100MG/60ML Rectal Enema 08/27/2023 12/03/19 24 RECTAL AT BEDTIME 0.5 928310 RxNorm INSERT 0.5 RECTAL AT BEDTIME Vitamin C 1000MG Oral Tablet 12/10/2023 Unknown ORAL ONCE A DAY 1000 MILLIGRAMS 826408 RxNorm TAKE 1000 MILLIGRAMS ORAL ONCE A DAY metFORMIN HCl 500MG Oral Tablet 12/10/2023 Unknown ORAL ONCE A DAY 500 MILLIGRAMS 626055 RxNorm TAKE 500 MILLIGRAMS ORAL ONCE A DAY Hospital Discharge Instructions Should you have any questions prior to discharge, please contact a member of your healthcare team. If you have left the hospital and have any questions, please contact your primary care physician. Reason For Referral No Data Found Procedures Procedure Name Date Status Code Code Syste m Colonoscopy, flexible; with biopsy, single or multiple 12/25/2022 completed 22368 CPT Anesthesia for lower intesti nal endoscopic procedures, endoscope introduce 12/25/2022 completed 05012 CPT Allergies and Adverse Reactions Allergy Substance Reaction Severity Start Date Concern Status Co de Code System ASPIRIN Active 1191 RxNorm ASPIRIN Active 1191 RxNorm QUINAPRIL Active 08574 RxNorm QUINAPRIL Active 64458 RxNorm No Known Drug Allergies Active 282536708 SNOMED-CT No Known Drug Allergies Active 552761087 SNOMED-CT No Known Allergies Active 146458942 SNO MED-CT Plan of Treatment Colonoscopy 08/27/2023 Sigmoidoscopy Flexible 12/10/2023 Encounters Encounter Diagnosis Start Date Code Code Sys tem Other specified noninfective gastroenteritis and colit is 12/25/2022 SNOMED-CT Personal Care Team Section Performer Name Performer Role Active Date Inactive Da te Discharge Summary Notes [facility] 12/25/2022 07:40 [facility] Discharge Instructions and Education Sheet [id number] [place] [address] [facility] Discharge Instructions/Education Sheet Main Line: [phone] Patient: CHRISTIANO SAMAYOA Gender: M MR#: [id number] Service Code: G Room: [facility] Address: [place] [address] Admitting Physician: BARBARA Secondary Physician: Family Physician: CARRIE MORRIS City: [place] State: [place] Zip Code: [address] Date of : [id number] Age: 77 Admit Date: 10250404 Admit Time: 632 Date: 10250404 Time: 738 p. 1 of 2 Discharge Instructions / Education: (Only checked items apply) Surgical Procedure: COLONOSCOPY WITH BIOPSIES OF COLON AND RECTUM The Surgical Procedure was explained to the patient/patient's sales representative jewelry in layman's terms. Due to the anesthesia and/or medication you have received, for the next 24 hrs DO NOT: Drive a car, operate machinery, power tools, or other motorized vehicles. Make any important personal or business decisions, or sign important paperwork. Drink any alcoholic beverages. Other: Activity Level and/or Restrictions: Resume your usual activity level. Rest for the remainder of today. Resume your usual activities tomorrow. You may take a Bath Shower when fully awake Other Restrictions: Diet Instructions/Restrictions: Resume your previous/prescribed diet: Start with liquids. Advance to soup, crackers, soft foods, and solids as tolerated. Other Restrictions: Home Medications and/or New Prescriptions: Resume all current Home Medications Hold medication(s) until New Prescription: New Prescription: Other Medication: Other Medication: Other Medications: Prescription(s) called faxed to Written/Printed prescription(s) given to patient/patient's sales representative jewelry. Use all medication(s) as directed. Other: Continued on page 2. [address] [place] [address] [facility] Discharge Instructions/Education Sheet Main Line: [phone] Patient: CHRISTIANO SAMAYOA Gender: M MR#: [id number] Service Code: G Room: [facility] Address: [place] [address] Admitting Physician: BARBARA Secondary Physician: Family Physician: CARRIE MORRIS City: [place] State: [place] Zip Code: [address] Date of : [id number] Age: 77 Admit Date: 10250404 Admit Time: 0633 p. 2 of 2 Special Post-Surgical Care Instructions: (Only checked items apply) Dressings/Bandages: Keep your dressing clean, dry, and intact. Do not remove dressing unless it becomes wet or extremely soiled. If tight bandage causes swelling, numbness, tingling, or white, blue, and/or cold fingers/toes, loosen dressing/bandage slightly. Other: Wound / Incision Appearance: Apply Ice/Cold Pack Elevate your wound to decrease soreness, tenderness, and/or swelling. Report any of the following symptoms immediately to your Doctor: Fever of 101.0 degrees Fahrenheit or greater Pain that does not lessen with prescribed medications Redness, swelling, warmth, and/or drainage from incision Bleeding or continuous oozing the saturates your bandage Persistent nausea and/or vomiting Other: severe pain or bleeding If you are unable to reach your physician, please call [facility] at [phone] to reach the Emergency Department. Follow-up Appointment: No follow-up appointment is required at this time. Your Physician will contact you. Any pending laboratory results/pathology reports will be discussed at your follow-up appointment. Follow-up appointment with Dr. LAW COLIN NP on 01/09/23 at 1 : 30 Your Doctor will see you at [facility] located on [facility] in [place], or in their office located at Other Instructions: By signing below, I acknowledge receipt and understanding of the above instructions and information. Patient/Patient Chief Of Planning Report called to LINK Staff Name: Latosha Whitfield RN Date: 10250404 Time: [address] [place] [address] Work/School Excuse Main Line: [phone] Patient: CHRISTIANO SAMAYOA Gender: M MR#: [id number] Service Code: G Room: [facility] Address: [place] [address] Admitting Physician: BARBARA Secondary Physician: Family Physician: CARRIE MORRIS City: [place] State: [place] Zip Code: [address] Date of : [id number] Age: 77 Admit Date: 10250404 Admit Time: 632 Date: Time: p. 1 of 1 Patient: Under our care on Return to on Follow up appointment at Comments: Comments: Providers Signature Date Time
--- OUTSIDE RECORDS SUMMARY | 2024-05-20 11:13 | XMS_ITS | Encounter Summary ---
Author Organization [facility] Facility Care Team Providers Care Computer Engineering Technician Name Role Phone Leonard Cage MD Primary Care Provider [phone] Leonard Cage MD Primary Care Provider [phone] Leonard Cage MD Unavailable [phone] Luis Alejandro DPM Primary Care Provider [phone] Encounter Details Date Type Department Care Team (Latest Contact Info) Description 11/20/2017 Orders Only [facility] CLINCONV ProviderKay MD [address] [place] [address] Social History Tobacco Use Types Packs/Day Years Used Date Smoking Tobacco: Never Assessed Sex and Gender Information Value Date Recorded Sex Assigned at Not on file 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 us Historical Provider Final Res ult documented in this encounter Visit Diagnoses Not on filedocumented in this encounter Care Teams Computer Engineering Technician Relationship Specialty Start Date End Date Leonard Cage MD PCP - General 07/07/17 08/04/18 Leonard Cage MD PCP - General Family Medicine 08/05/18 10/27/18 Luis Alejandro DPM [address] [place] [address] PCP - General Orthotics 10/28/18 03/31/19 Leonard Cage MD 08/05/18 08/05/18 documented as of this encounter
--- OUTSIDE RECORDS SUMMARY | 2024-05-20 11:13 | XMS_ITS | Encounter Summary ---
Author Organization [facility] Facility Care Team Providers Care Post Hole Digger Name Role Phone Leonard Cage MD Primary Care Provider [phone] Leonard Cage MD Primary Care Provider [phone] Leonard Cage MD Unavailable [phone] Luis Alejandro DPM Primary Care Provider [phone] Encounter Details Date Type Department Care Team (Latest Contact Info) Description 12/14/2017 Orders Only [facility] CLINCONV ProviderKay MD [address] [place] [address] Social History Tobacco Use Types Packs/Day Years Used Date Smoking Tobacco: Never Assessed Sex and Gender Information Value Date Recorded Sex Assigned at Not on file Legal Sex Male 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 Historical Provider Final Res ult * SCAN - LABS (12/14/2017 12:00 AM CDT) Narrative 12/14/2017 12:00 AM CDT Ordered by an unspecified provider. Historical Provider Final Res ult documented in this encounter Visit Diagnoses Not on filedocumented in this encounter Care Teams Post Hole Digger Relationship Specialty Start Date End Date Leonard Cage MD PCP - General 07/07/17 08/04/18 Leonard Cage MD PCP - General Family Medicine 08/05/18 10/27/18 Luis Alejandro DPM [address] [place] [address] PCP - General Orthotics 10/28/18 03/31/19 Leonard Cage MD 08/05/18 08/05/18 documented as of this encounter
--- OUTSIDE RECORDS SUMMARY | 2024-05-20 11:13 | XMS_ITS | Encounter Summary ---
Author Organization [facility] Facility Care Team Providers Care Curator Of Education Name Role Phone Leonard Cage MD Primary Care Provider [phone] Leonard Cage MD Primary Care Provider [phone] Leonard Cage MD Unavailable [phone] Luis Alejandro DPM Primary Care Provider [phone] Encounter Details Date Type Department Care Team (Latest Contact Info) Description 11/10/2017 Orders Only [facility] CLINCONV ProviderKay MD [address] [place] [address] Social History Tobacco Use Types Packs/Day Years Used Date Smoking Tobacco: Never Assessed Sex and Gender Information Value Date Recorded Sex Assigned at Not on file 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 us Historical Provider Final Res ult documented in this encounter Visit Diagnoses Not on filedocumented in this encounter Care Teams Curator Of Education Relationship Specialty Start Date End Date Leonard Cage MD PCP - General 07/07/17 08/04/18 Leonard Cage MD PCP - General Family Medicine 08/05/18 10/27/18 Luis Alejandro DPM [address] [place] [address] PCP - General Orthotics 10/28/18 03/31/19 Leonard Cage MD 08/05/18 08/05/18 documented as of this encounter
--- OUTSIDE RECORDS SUMMARY | 2024-05-20 11:14 | XMS_ITS ---
Author Organization Unknown Address [address] [place] [phone] Phone Care Team Providers Care Roller Inspector Name Role Phone CRISTI Jang Attending Unavailable CARRIE MORRIS Primary Unavailable Immunization Immunization Date Status Additional Notes Code Code System Tdap 12/03/2017 Completed 115 CVX Tdap 10/15/2023 Completed 115 CVX Influenza, high-dose, quadrivalent, PF 01/02/2020 Completed 197 CVX Influenza, adjuvanted, quadrivalent, PF 12/26/2020 Completed 205 CVX COVID-19 vaccine, vector-nr, rS-Ad26, PF, 0.5 mL 05/25/2020 Completed 212 CVX Results COMPREHENSIVE METABOLIC PANE L - Collect Date/Time: 05/27/2023 14:38 [facility] ID: [id number] [address] [place] [address], [id number] LOINC: 99941-1 Test Value Unit Reference Range Code Code System Flag FASTING NO BUN 19 mg/dL L=7 H=20 3094-0 LOINC CREATININE 0.70 mg/dL L=0.66 H=1.25 2160-0 LOINC GLUCOSE 120 mg/dL L=74 H=106 2345-7 LOINC H SODIUM 141 mmol/L L=132 H=144 2951-2 LOINC POTASSIUM 3.9 mmol/L L=3.5 H=5.1 2823-3 LOINC CHLORIDE 107 mmol/L L=98 H=107 2075-0 LOINC CO2 25.0 mmol/L L=22.0 H=30.0 2028-9 LOINC ANION GAP 13 L=10 H=20 32194-8 LOINC OSMOLALITY 295 mOs/kG L=280 H=296 91145-6 LOINC BUN/CREAT 27.1 3097-3 LOINC CALCIUM 9.3 mg/dL L=8.3 H=10.5 86394-4 LOINC AST 29 U/L L=15 H=46 1920-8 LOINC ALT 20 U/L L=9 H=72 1742-6 LOINC ALKALINE PHOS 82 U/L L=38 H=126 6768-6 LOINC TOTAL BILI 1.5 mg/dL L=0.2 H=1.3 1975-2 LOINC H ALBUMIN 3.8 G/dL L=3.5 H=5.0 1751-7 LOINC TOTAL PROTEIN 6.8 g/L L=6.3 H=8.2 2885-2 LOINC A/G RATIO 1.3 92038-4 LOINC AGE 78 54869-9 LOINC eGFR NON-AFR 116 ml/min eGFR AFR AMER 140 ml/min CBC W/O DIFF - Collect Date/ Time: 05/27/2023 14:38 [facility] ID: [id number] [address] [place], [place], [id number] LOINC: 31301-6 Test Value Unit Reference Range Code Code System Flag WBC 7.1 10^3uL L=4.8 H=10.8 RBC 4.56 10^6uL L=4.60 H=6.20 L HEMOGLOBIN 13.7 g/dL L=14.0 H=18.0 718-7 LOINC L HEMATOCRIT 41.4 VOL% L=42.0 H=52.0 4544-3 LOINC L MCV 90.8 fL L=80.0 H=94.0 MCH 30.0 pg L=27.0 H=32.0 MCHC 33.1 g/dL L=32.0 H=36.0 PLATELETS 217 10^3uL L=100 H=400 98445-2 LOINC RDW 14.1 % L=11.7 H=15.5 Social History Type Status Start Date End Date Code Code Syst em Smoking History Former smoker 2447291 SNOMED CT Sex Male Medications Medication Start Date End Date Route Frequency Dose Code Code System Medication Instructions Home Meds Atorvastatin Calcium 80MG Oral Tablet 06/08/2020 Unknown ORAL ONCE A DAY 80 MILLIGRAMS 540412 RxNorm TAKE 80 MILLIGRAMS ORAL ONCE A DAY metFORMIN HCl 500MG Oral Tablet, Extended Release 06/08/2020 08/12/19 24 ORAL TWICE A DAY 500 MILLIGRAMS 367604 RxNorm TAKE 500 MILLIGRAMS ORAL TWICE A DAY Remicade 100MG Intravenous Powder for Solution 12/25/2022 08/12/19 24 INTRAVE NOUS EVERY 8 WEEKS 100 MILLIGRAMS 835278 RxNorm 100 MILLIGRAMS INTRAVENOUS EVERY 8 WEEKS Budesonide 3MG Oral Capsule, Delayed Release 08/27/2023 12/03/19 24 ORAL THREE TIMES A DAY 3 MILLIGRAMS 8165015 RxNorm TAKE 3 MILLIGRAMS ORAL THREE TIMES A DAY Ozempic 0.25 MG or 0.5 MG Doses 2 MG/3 ML Subcutaneous Solution 08/27/2023 12/03/19 24 SUBCUTA NEOUS ONCE A WEEK 1 unit(s) 6498902 RxNorm INJECT INTO 1 EACH SUBCUTANEOUS ONCE A WEEK Vitamin D3 10 MCG Oral Tablet 08/27/2023 Unknown ORAL ONCE A DAY 10 MCG 566850 RxNorm TAKE 10 MCG ORAL ONCE A DAY metFORMIN HCl 500MG Oral Tablet 08/27/2023 12/03/19 24 ORAL TWICE A DAY 500 MILLIGRAMS 590218 RxNorm TAKE 500 MILLIGRAMS ORAL TWICE A DAY Cortenema 100MG/60ML Rectal Enema 08/27/2023 12/03/19 24 RECTAL AT BEDTIME 0.5 642402 RxNorm INSERT 0.5 RECTAL AT BEDTIME Vitamin C 1000MG Oral Tablet 12/10/2023 Unknown ORAL ONCE A DAY 1000 MILLIGRAMS 485953 RxNorm TAKE 1000 MILLIGRAMS ORAL ONCE A DAY metFORMIN HCl 500MG Oral Tablet 12/10/2023 Unknown ORAL ONCE A DAY 500 MILLIGRAMS 470120 RxNorm TAKE 500 MILLIGRAMS ORAL ONCE A [...] RxNorm ASPIRIN Active 1191 RxNorm QUINAPRIL Active 37609 RxNorm QUINAPRIL Active 72809 RxNorm No Known Drug Allergies Active 690592842 SNOMED-CT No Known Drug Allergies Active 688501414 SNOMED-CT No Known Allergies Active 824114148 SNO MED-CT Plan of Treatment Colonoscopy 08/27/2023 Sigmoidoscopy Flexible 12/10/2023 Encounters Encounter Diagnosis Start Date Code Code Sys tem Ulcerative colitis, unspecified, without complications 05/27/2023 SNOMED-CT Personal Care Team Section Performer Name Performer Role Active Date Inactive Da ninfa
--- OUTSIDE RECORDS SUMMARY | 2024-05-20 11:14 | XMS_ITS ---
Author Organization Unknown Address [address] [place] [phone] Phone Care Team Providers Care Operations And Maintenance Manager Name Role Phone CRISTI Jang Attending Unavailable [...] Code Syst em Smoking History Former smoker 1700021 SNOMED CT Sex Male Vital Signs Vital Sign Value Unit Durant Value Durant Unit Date/Time Recent/Initial? Code Code System Body Mass Index 29.27 kg/m2 03/03/2023 10:38 Initial 14341 -5 LOINC Systolic Blood Pressure 136 mm[Hg] 03/03/2023 10:38 Initial 8480- 6 LOINC Diastolic Blood Pressure 66 mm[Hg] 03/03/2023 10:38 Initial 8462- 4 LOINC Body Surface Area 2.14 m2 03/03/2023 10:38 Initial 3140- 1 LOINC Height 177.800 0 cm 70.00 in 03/03/2023 10:38 Initial 8302- 2 LOINC O2 Saturation 98 % 2023 10:38 Initial 13283 -5 LOINC Pulse 67.0 /min 03/03/2023 10:38 Initial 8867- 4 LOINC Respiration 20 /min 03/03/19 10:38 Initial 9279- 1 LOINC Temperature 35.9 Basia 96.6 F 01/02/20 24 10:38 Initial 8310- 5 [facility] Weight 92.53 kg 204.00 lbs 03/03/2023 10:38 Initial 33521 -7 [facility] Medications Medication Start Date End Date Route Frequency Dose Code Code System Medication Instructions Home Meds Atorvastatin Calcium 80MG Oral Tablet 06/08/2020 Unknown ORAL ONCE A DAY 80 MILLIGRAMS 272167 RxNorm TAKE 80 MILLIGRAMS ORAL ONCE A DAY metFORMIN HCl 500MG Oral Tablet, Extended Release 06/08/2020 08/12/19 24 ORAL TWICE A DAY 500 MILLIGRAMS 547817 RxNorm TAKE 500 MILLIGRAMS ORAL TWICE A DAY Remicade 100MG Intravenous Powder for Solution 12/25/2022 08/12/19 24 INTRAVE NOUS EVERY 8 WEEKS 100 MILLIGRAMS 660060 RxNorm 100 MILLIGRAMS INTRAVENOUS EVERY 8 WEEKS Budesonide 3MG Oral Capsule, Delayed Release 08/27/2023 12/03/19 24 ORAL THREE TIMES A DAY 3 MILLIGRAMS 1694062 RxNorm TAKE 3 MILLIGRAMS ORAL THREE TIMES A DAY Ozempic 0.25 MG or 0.5 MG Doses 2 MG/3 ML Subcutaneous Solution 08/27/2023 12/03/19 24 SUBCUTA NEOUS ONCE A WEEK 1 unit(s) 8495055 RxNorm INJECT INTO 1 EACH SUBCUTANEOUS ONCE A WEEK Vitamin D3 10 MCG Oral Tablet 08/27/2023 Unknown ORAL ONCE A DAY 10 MCG 947215 RxNorm TAKE 10 MCG ORAL ONCE A DAY metFORMIN HCl 500MG Oral Tablet 08/27/2023 12/03/19 24 ORAL TWICE A DAY 500 MILLIGRAMS 793129 RxNorm TAKE 500 MILLIGRAMS ORAL TWICE A DAY Cortenema 100MG/60ML Rectal Enema 08/27/2023 12/03/19 24 RECTAL AT BEDTIME 0.5 673351 RxNorm INSERT 0.5 RECTAL AT BEDTIME Vitamin C 1000MG Oral Tablet 12/10/2023 Unknown ORAL ONCE A DAY 1000 MILLIGRAMS 414680 RxNorm TAKE 1000 MILLIGRAMS ORAL ONCE A DAY metFORMIN HCl 500MG Oral Tablet 12/10/2023 Unknown ORAL ONCE A DAY 500 MILLIGRAMS 948992 RxNorm TAKE 500 MILLIGRAMS ORAL ONCE A [...] RxNorm ASPIRIN Active 1191 RxNorm QUINAPRIL Active 29858 RxNorm QUINAPRIL Active 76566 RxNorm No Known Drug Allergies Active 835750065 SNOMED-CT No Known Drug Allergies Active 689305652 SNOMED-CT No Known Allergies Active 103396905 SNO MED-CT Plan of Treatment Colonoscopy 08/27/2023 Sigmoidoscopy Flexible 12/10/2023 Encounters Encounter Diagnosis Start Date Code Code Sys tem Ulcerative colitis 03/03/2023 49137004 SNOMED-CT Personal Care Team Section Performer Name Performer Role Active Date Inactive Da ninfa
--- OUTSIDE RECORDS SUMMARY | 2024-05-20 11:15 | XMS_ITS | Encounter Summary ---
Author Organization [facility] Facility Care Team Providers Care Japanese Professor Name Role Phone Leonard Cage MD Primary Care Provider [phone] Leonard Cage MD Primary Care Provider [phone] Leonard Cage MD Unavailable [phone] Luis Alejandro DPM Primary Care Provider [phone] Encounter Details Date Type Department Care Team (Latest Contact Info) Description 04/07/2017 Orders Only [facility] CLINCONV ProviderKay MD [address] [place] [address] Social History Tobacco Use Types Packs/Day Years Used Date Smoking Tobacco: Never Assessed Sex and Gender Information Value Date Recorded Sex Assigned at Not on file Legal Sex Male 12:24 AM WATER RIGHTS SPECIALIST Gender Identity Male 06/09/2021 8:03 AM CDT Sexual Orientation Bisexual 06/09/2021 8: 03 AM CDT documented as of this encounter Plan of Treatment Not on file documented as of this encounter Procedures Procedure Name Priority Date/Time Associated Diagnosis Comments CARDIOLOGY REPORT 04/07/2017 12: 00 AM WATER RIGHTS SPECIALIST documented in this encounter Results * CARDIOLOGY REPORT (04/07/2017 12:00 AM WATER RIGHTS SPECIALIST) Anatomical Region Laterality Modality Other Narrative 04/07/2017 12:00 AM WATER RIGHTS SPECIALIST Ordered by an unspecified provider. Historical Provider [facility] Final Result documented in this encounter Visit Diagnoses Not on filedocumented in this encounter Care Teams Japanese Professor Relationship Specialty Start Date End Date Leonard Cage MD PCP - General 07/07/17 08/04/18 Leonard Cage MD PCP - General Family Medicine 08/05/18 10/27/18 Luis Alejandro DPM [address] [place] [address] PCP - General Orthotics 10/28/18 03/31/19 Leonard Cage MD 08/05/18 08/05/18 documented as of this encounter
--- OUTSIDE RECORDS SUMMARY | 2024-05-20 11:15 | XMS_ITS ---
Author Organization Unknown Address [address] [place] [phone] Phone Care Team Providers Care Spin Table Operator Name Role Phone BARBARA Null Attending Unavailable DINO LIMON CRNA Unavailable CARRIE MORRIS Primary Unavailable Immunization Immunization Date Status Additional Notes Code Code System Tdap 12/03/2017 Completed 115 CVX Tdap 10/15/2023 Completed 115 CVX Influenza, high-dose, quadrivalent, PF 01/02/2020 Completed 197 CVX Influenza, adjuvanted, quadrivalent, PF 12/26/2020 Completed 205 CVX COVID-19 vaccine, vector-nr, rS-Ad26, PF, 0.5 mL 05/25/2020 Completed 212 CVX Results BEDSIDE GLUCOSE - Collect Da te/Time: 08/27/2023 09:29 [facility] ID: [id number] [address] [place], [place], [id number] LOINC: 96056-7 Test Value Unit Reference Range Code Code System Flag BEDSIDE GLUCOSE 144 mg/dl L=74 H=106 33060-6 LOINC H Social History Type Status Start Date End Date Code Code Syst em Smoking History Former smoker 7416764 SNOMED CT Sex Male Vital Signs Vital Sign Value Unit [place] Value [place] Unit Date/Time Recent/Initial? Code Code System Body Mass Index 27.26 kg/m2 08/27/2023 09:18 Most Recent 51270 -5 LOINC Body Mass Index 28.27 kg/m2 08/12/2023 09:12 Initial 85738 -5 LOINC Systolic Blood Pressure 151 mm[Hg] 08/27/2023 09:23 Initial 8480- 6 LOINC Diastolic Blood Pressure 66 mm[Hg] 08/27/2023 09:23 Initial 8462- 4 [facility] Body Surface Area 2.06 m2 08/27/2023 09:18 Most Recent 3140- 1 [facility] Body Surface Area 2.10 m2 08/12/2023 09:12 Initial 3140- 1 LOINC Height 177.800 0 cm 70.00 in 08/27/2023 09:18 Most Recent 8302- 2 INC Height 177.800 0 cm 70.00 in 08/12/2023 09:12 Initial 8302- 2 [facility] O2 Saturation 98 % 2023 09:23 Initial 90032 -5 [facility] Pulse 55.0 /min 08/27/2023 09:23 Initial 8867- 4 [facility] Respiration 12 /min 08/27/19 09:23 Initial 9279- 1 [facility] Temperature 36.3 Basia 97.3 F 08/27/19 09:23 Initial 8310- 5 [facility] Weight 86.18 kg 190.00 lbs 08/27/2023 09:18 Most Recent 08807 -7 [facility] Weight 89.36 kg 197.00 lbs 08/12/2023 09:12 Initial 37287 -7 [facility] Medications Medication Start Date End Date Route Frequency Dose Code Code System Medication Instructions Home Meds Atorvastatin Calcium 80MG Oral Tablet 06/08/2020 Unknown ORAL ONCE A DAY 80 MILLIGRAMS 621421 RxNorm TAKE 80 MILLIGRAMS ORAL ONCE A DAY Budesonide 3MG Oral Capsule, Delayed Release 08/27/2023 12/03/19 24 ORAL THREE TIMES A DAY 3 MILLIGRAMS 6077218 RxNorm TAKE 3 MILLIGRAMS ORAL THREE TIMES A DAY Ozempic 0.25 MG or 0.5 MG Doses 2 MG/3 ML Subcutaneous Solution 08/27/2023 12/03/19 24 SUBCUTA NEOUS ONCE A WEEK 1 unit(s) 4159996 RxNorm INJECT INTO 1 EACH SUBCUTANEOUS ONCE A WEEK Vitamin D3 10 MCG Oral Tablet 08/27/2023 Unknown ORAL ONCE A DAY 10 MCG 289802 RxNorm TAKE 10 MCG ORAL ONCE A DAY metFORMIN HCl 500MG Oral Tablet 08/27/2023 12/03/19 24 ORAL TWICE A DAY 500 MILLIGRAMS 810115 RxNorm TAKE 500 MILLIGRAMS ORAL TWICE A DAY Cortenema 100MG/60ML Rectal Enema 08/27/2023 12/03/19 24 RECTAL AT BEDTIME 0.5 435441 RxNorm INSERT 0.5 RECTAL AT BEDTIME Vitamin C 1000MG Oral Tablet 12/10/2023 Unknown ORAL ONCE A DAY 1000 MILLIGRAMS 493383 RxNorm TAKE 1000 MILLIGRAMS ORAL ONCE A DAY metFORMIN HCl 500MG Oral Tablet 12/10/2023 Unknown ORAL ONCE A DAY 500 MILLIGRAMS 391510 RxNorm TAKE 500 MILLIGRAMS ORAL ONCE A DAY Hospital Discharge Instructions Should you have any questions prior to discharge, please contact a member of your healthcare team. If you have left the hospital and have any questions, please contact your primary care physician. Reason For Referral No Data Found Procedures Procedure Name Date Status Code Code Syste m Anesthesia for lower intesti nal endoscopic procedures, endoscope introduce 08/27/2023 completed 55624 CPT Colonoscopy, flexible; with removal of tumor(s), polyp(s), or other lesion 08/27/2023 completed 04139 CPT Allergies and Adverse Reactions Allergy Substance Reaction Severity Start Date Concern Status Co de Code System ASPIRIN Active 1191 RxNorm ASPIRIN Active 1191 RxNorm QUINAPRIL Active 32936 RxNorm QUINAPRIL Active 25967 RxNorm No Known Drug Allergies Active 620775245 SNOMED-CT No Known Drug Allergies Active 859656573 SNOMED-CT No Known Allergies Active 588124257 SNO MED-CT Plan of Treatment Colonoscopy 08/27/2023 Sigmoidoscopy Flexible 12/10/2023 Encounters Encounter Diagnosis Start Date Code Code Sys tem Ulcerative colitis, unspecified, without complications 08/27/2023 SNOMED-CT Personal Care Team Section Performer Name Performer Role Active Date Inactive Ganesh ocasio
--- OUTSIDE RECORDS SUMMARY | 2024-05-20 11:15 | XMS_ITS | Encounter Summary ---
Author Organization [facility] Facility Care Team Providers Care Outdoor Power Equipment Mechanic Name Role Phone Leonard Cage MD Primary Care Provider [phone] Leonard Cage MD Primary Care Provider [phone] Leonard Cage MD Unavailable [phone] Luis Alejandro DPM Primary Care Provider [phone] Encounter Details Date Type Department Care Team (Latest Contact Info) Description 05/13/2017 Orders Only [facility] CLINCONV ProviderKay MD [address] [place] [address] Social History Tobacco Use Types Packs/Day Years Used Date Smoking Tobacco: Never Assessed Sex and Gender Information Value Date Recorded Sex Assigned at Not on file Legal Sex Male 12:24 AM APPLICATION DEVELOPMENT TEAM LEAD Gender Identity Male 06/09/2021 8:03 AM CDT Sexual Orientation Bisexual 06/09/2021 8: 03 AM CDT documented as of this encounter Plan of Treatment Not on file documented as of this encounter Procedures Procedure Name Priority Date/Time Associated Diagnosis Comments SCAN - LABS 05/14/2017 12:00 AM CDT documented in this encounter Results * SCAN - LABS (05/14/2017 12:00 AM CDT) Narrative 05/14/2017 12:00 AM CDT Ordered by an unspecified provider. us Historical Provider Final Res ult documented in this encounter Visit Diagnoses Not on filedocumented in this encounter Care Teams Outdoor Power Equipment Mechanic Relationship Specialty Start Date End Date Leonard Cage MD PCP - General 07/07/17 08/04/18 Leonard Cage MD PCP - General Family Medicine 08/05/18 10/27/18 Luis Alejandro DPM [address] [place] [address] PCP - General Orthotics 10/28/18 03/31/19 Leonard Cage MD 08/05/18 08/05/18 documented as of this encounter
--- OUTSIDE RECORDS SUMMARY | 2024-05-20 11:15 | XMS_ITS | Encounter Summary ---
Author Organization [facility] Facility Care Team Providers Care Genetic Scientist Name Role Phone Leonard Cage MD Primary Care Provider [phone] Leonard Cage MD Primary Care Provider [phone] Leonard Cage MD Unavailable [phone] Luis Alejandro DPM Primary Care Provider [phone] Encounter Details Date Type Department Care Team (Latest Contact Info) Description 08/26/2017 Orders Only [facility] CLINCONV ProviderKay MD [address] [place] [address] Social History Tobacco Use Types Packs/Day Years Used Date Smoking Tobacco: Never Assessed Sex and Gender Information Value Date Recorded Sex Assigned at Not on file Legal Sex Male 12:24 AM CODING SPEC Gender Identity Male 06/09/2021 8:03 AM CDT Sexual Orientation Bisexual 06/09/2021 8: 03 AM CDT documented as of this encounter Plan of Treatment Not on file documented as of this encounter Procedures Procedure Name Priority Date/Time Associated Diagnosis Comments SCAN - LABS 08/27/2017 12:00 AM CDT SCAN - LABS 08/26/2017 12:00 AM CDT documented in this encounter Results * SCAN - LABS (08/27/2017 12:00 AM CDT) Narrative 08/27/2017 12:00 AM CDT Ordered by an unspecified provider. Historical Provider Final Res ult * SCAN - LABS (08/26/2017 12:00 AM CDT) Narrative 08/26/2017 12:00 AM CDT Ordered by an unspecified provider. Historical Provider Final Res ult documented in this encounter Visit Diagnoses Not on filedocumented in this encounter Care Teams Genetic Scientist Relationship Specialty Start Date End Date Leonard Cage MD PCP - General 07/07/17 08/04/18 Leonard Cage MD PCP - General Family Medicine 08/05/18 10/27/18 Luis Alejandro DPM [address] [place] [address] PCP - General Orthotics 10/28/18 03/31/19 Leonard Cage MD 08/05/18 08/05/18 documented as of this encounter
--- OUTSIDE RECORDS SUMMARY | 2024-05-20 11:15 | XMS_ITS ---
Author Organization Unknown Address [address] [place] [phone] Phone Care Team Providers Care Before School Name Role Phone CRISTI Jang Attending Unavailable [...] Code Syst em Smoking History Former smoker 0430744 SNOMED CT Sex Male Vital Signs Vital Sign Value Unit [place] Value [place] Unit Date/Time Recent/Initial? Code Code System Body Mass Index 28.12 kg/m2 12/23/2022 10:40 Initial 47993 -5 LOINC Systolic Blood Pressure 146 mm[Hg] 12/23/2022 10:40 Initial 8480- 6 LOINC Diastolic Blood Pressure 68 mm[Hg] 12/23/2022 10:40 Initial 8462- 4 LOINC Body Surface Area 2.10 m2 12/23/2022 10:40 Initial 3140- 1 LOINC Height 177.800 0 cm 70.00 in 12/23/2022 10:40 Initial 8302- 2 LOINC O2 Saturation 98 % 2022 10:40 Initial 53462 -5 LOINC Pulse 62.0 /min 12/23/2022 10:40 Initial 8867- 4 LOINC Respiration 20 /min 12/24/19 10:40 Initial 9279- 1 LOINC Temperature 36.0 Basia 96.8 F 10/24/20 23 10:40 Initial 8310- 5 [facility] Weight 88.90 kg 196.00 lbs 12/23/2022 10:40 Initial 43040 -7 [facility] Medications Medication Start Date End Date Route Frequency Dose Code Code System Medication Instructions Home Meds Atorvastatin Calcium 80MG Oral Tablet 06/08/2020 Unknown ORAL ONCE A DAY 80 MILLIGRAMS 720043 RxNorm TAKE 80 MILLIGRAMS ORAL ONCE A DAY metFORMIN HCl 500MG Oral Tablet, Extended Release 06/08/2020 08/12/19 24 ORAL TWICE A DAY 500 MILLIGRAMS 653436 RxNorm TAKE 500 MILLIGRAMS ORAL TWICE A DAY Remicade 100MG Intravenous Powder for Solution 12/25/2022 08/12/19 24 INTRAVE NOUS EVERY 8 WEEKS 100 MILLIGRAMS 097855 RxNorm 100 MILLIGRAMS INTRAVENOUS EVERY 8 WEEKS Budesonide 3MG Oral Capsule, Delayed Release 08/27/2023 12/03/19 24 ORAL THREE TIMES A DAY 3 MILLIGRAMS 6927883 RxNorm TAKE 3 MILLIGRAMS ORAL THREE TIMES A DAY Ozempic 0.25 MG or 0.5 MG Doses 2 MG/3 ML Subcutaneous Solution 08/27/2023 12/03/19 24 SUBCUTA NEOUS ONCE A WEEK 1 unit(s) 0465106 RxNorm INJECT INTO 1 EACH SUBCUTANEOUS ONCE A WEEK Vitamin D3 10 MCG Oral Tablet 08/27/2023 Unknown ORAL ONCE A DAY 10 MCG 427062 RxNorm TAKE 10 MCG ORAL ONCE A DAY metFORMIN HCl 500MG Oral Tablet 08/27/2023 12/03/19 24 ORAL TWICE A DAY 500 MILLIGRAMS 303694 RxNorm TAKE 500 MILLIGRAMS ORAL TWICE A DAY Cortenema 100MG/60ML Rectal Enema 08/27/2023 12/03/19 24 RECTAL AT BEDTIME 0.5 274643 RxNorm INSERT 0.5 RECTAL AT BEDTIME Vitamin C 1000MG Oral Tablet 12/10/2023 Unknown ORAL ONCE A DAY 1000 MILLIGRAMS 236948 RxNorm TAKE 1000 MILLIGRAMS ORAL ONCE A DAY metFORMIN HCl 500MG Oral Tablet 12/10/2023 Unknown ORAL ONCE A DAY 500 MILLIGRAMS 904196 RxNorm TAKE 500 MILLIGRAMS ORAL ONCE A [...] RxNorm ASPIRIN Active 1191 RxNorm QUINAPRIL Active 66690 RxNorm QUINAPRIL Active 65887 RxNorm No Known Drug Allergies Active 776514263 SNOMED-CT No Known Drug Allergies Active 348121500 SNOMED-CT No Known Allergies Active 417317131 SNO MED-CT Plan of Treatment Colonoscopy 08/27/2023 Sigmoidoscopy Flexible 12/10/2023 Encounters Encounter Diagnosis Start Date Code Code Sys tem Ulcerative colitis 12/23/2022 57006085 SNOMED-CT Personal Care Team Section Performer Name Performer Role Active Date Inactive Da ninfa
--- OUTSIDE RECORDS SUMMARY | 2024-05-20 11:15 | XMS_ITS ---
Author Organization Unknown Address [address] [place] [phone] Phone Care Team Providers Care Traffic Sign Supervisor Name Role Phone CRISTI Jang Attending Unavailable [...] Code Syst em Smoking History Former smoker 9849059 SNOMED CT Sex Male Vital Signs Vital Sign Value Unit [place] Value [place] Unit Date/Time Recent/Initial? Code Code System Body Mass Index 29.41 kg/m2 03/31/2023 09:13 Initial 52993 -5 LOINC Systolic Blood Pressure 177 mm[Hg] 03/31/2023 09:12 Initial 8480- 6 LOINC Diastolic Blood Pressure 77 mm[Hg] 03/31/2023 09:12 Initial 8462- 4 LOINC Body Surface Area 2.14 m2 03/31/2023 09:13 Initial 3140- 1 LOINC Height 177.800 0 cm 70.00 in 03/31/2023 09:13 Initial 8302- 2 LOINC O2 Saturation 98 % 2023 09:12 Initial 90892 -5 LOINC Pulse 56.0 /min 03/31/2023 09:12 Initial 8867- 4 LOINC Respiration 22 /min 03/31/19 24 09:12 Initial 9279- 1 LOINC Temperature 35.9 Basia 96.6 F 03/31/19 24 09:12 Initial 8310- 5 [facility] Weight 92.99 kg 205.00 lbs 03/31/2023 09:13 Initial 09356 -7 [facility] Medications Medication Start Date End Date Route Frequency Dose Code Code System Medication Instructions Home Meds Atorvastatin Calcium 80MG Oral Tablet 06/08/2020 Unknown ORAL ONCE A DAY 80 MILLIGRAMS 028638 RxNorm TAKE 80 MILLIGRAMS ORAL ONCE A DAY metFORMIN HCl 500MG Oral Tablet, Extended Release 06/08/2020 08/12/19 24 ORAL TWICE A DAY 500 MILLIGRAMS 588257 RxNorm TAKE 500 MILLIGRAMS ORAL TWICE A DAY Remicade 100MG Intravenous Powder for Solution 12/25/2022 08/12/19 24 INTRAVE NOUS EVERY 8 WEEKS 100 MILLIGRAMS 491246 RxNorm 100 MILLIGRAMS INTRAVENOUS EVERY 8 WEEKS Budesonide 3MG Oral Capsule, Delayed Release 08/27/2023 12/03/19 24 ORAL THREE TIMES A DAY 3 MILLIGRAMS 0277413 RxNorm TAKE 3 MILLIGRAMS ORAL THREE TIMES A DAY Ozempic 0.25 MG or 0.5 MG Doses 2 MG/3 ML Subcutaneous Solution 08/27/2023 12/03/19 24 SUBCUTA NEOUS ONCE A WEEK 1 unit(s) 3908482 RxNorm INJECT INTO 1 EACH SUBCUTANEOUS ONCE A WEEK Vitamin D3 10 MCG Oral Tablet 08/27/2023 Unknown ORAL ONCE A DAY 10 MCG 909650 RxNorm TAKE 10 MCG ORAL ONCE A DAY metFORMIN HCl 500MG Oral Tablet 08/27/2023 12/03/19 24 ORAL TWICE A DAY 500 MILLIGRAMS 521618 RxNorm TAKE 500 MILLIGRAMS ORAL TWICE A DAY Cortenema 100MG/60ML Rectal Enema 08/27/2023 12/03/19 24 RECTAL AT BEDTIME 0.5 563498 RxNorm INSERT 0.5 RECTAL AT BEDTIME Vitamin C 1000MG Oral Tablet 12/10/2023 Unknown ORAL ONCE A DAY 1000 MILLIGRAMS 488923 RxNorm TAKE 1000 MILLIGRAMS ORAL ONCE A DAY metFORMIN HCl 500MG Oral Tablet 12/10/2023 Unknown ORAL ONCE A DAY 500 MILLIGRAMS 967454 RxNorm TAKE 500 MILLIGRAMS ORAL ONCE A [...] RxNorm ASPIRIN Active 1191 RxNorm QUINAPRIL Active 42874 RxNorm QUINAPRIL Active 05804 RxNorm No Known Drug Allergies Active 122792453 SNOMED-CT No Known Drug Allergies Active 452494458 SNOMED-CT No Known Allergies Active 545530671 SNO MED-CT Plan of Treatment Colonoscopy 08/27/2023 Sigmoidoscopy Flexible 12/10/2023 Encounters Encounter Diagnosis Start Date Code Code Sys tem Ulcerative colitis 03/31/2023 54063781 SNOMED-CT Personal Care Team Section Performer Name Performer Role Active Date Inactive Da ninfa
--- OUTSIDE RECORDS SUMMARY | 2024-05-20 11:15 | XMS_ITS ---
Author Organization Unknown Address [address] [place] [phone] Phone Care Team Providers Care Production Support Developer Name Role Phone CRISTI Jang Attending Unavailable CARRIE MORRIS Primary Unavailable Immunization Immunization Date Status Additional Notes Code Code System Tdap 12/03/2017 Completed 115 CVX Tdap 10/15/2023 Completed 115 CVX Influenza, high-dose, quadrivalent, PF 01/02/2020 Completed 197 CVX Influenza, adjuvanted, quadrivalent, PF 12/26/2020 Completed 205 CVX COVID-19 vaccine, vector-nr, rS-Ad26, PF, 0.5 mL 05/25/2020 Completed 212 CVX Results CBC W/O DIFF - Collect Date/ Time: 12/30/2023 14:09 [facility] ID: [id number] [place] [address], [id number] LOINC: 73223-2 Test Value Unit Reference Range Code Code System Flag WBC 7.0 10^3uL L=4.8 H=10.8 RBC 4.01 10^6uL L=4.60 H=6.20 L HEMOGLOBIN 12.4 g/dL L=14.0 H=18.0 718-7 LOINC L HEMATOCRIT 37.4 VOL% L=42.0 H=52.0 4544-3 LOINC L MCV 93.3 fL L=80.0 H=94.0 MCH 30.9 pg L=27.0 H=32.0 MCHC 33.2 g/dL L=32.0 H=36.0 PLATELETS 202 10^3uL L=100 H=400 23259-2 LOINC RDW 13.5 % L=11.7 H=15.5 COMPREHENSIVE METABOLIC PANE L - Collect Date/Time: 12/30/2023 14:09 [facility] ID: [id number] [address] [place], [place], [phone] LOINC: 66573-6 Test Value Unit Reference Range Code Code System Flag FASTING NO BUN 13 mg/dL L=7 H=20 3094-0 LOINC CREATININE 0.70 mg/dL L=0.66 H=1.25 2160-0 LOINC GLUCOSE 145 mg/dL L=74 H=106 2345-7 LOINC H SODIUM 138 mmol/L L=132 H=144 2951-2 LOINC POTASSIUM 3.9 mmol/L L=3.5 H=5.1 2823-3 LOINC CHLORIDE 104 mmol/L L=98 H=107 2075-0 LOINC CO2 25.0 mmol/L L=22.0 H=30.0 2028-9 LOINC ANION GAP 13 L=10 H=20 53488-7 LOINC OSMOLALITY 289 mOs/kG L=280 H=296 64676-3 LOINC BUN/CREAT 18.6 3097-3 LOINC CALCIUM 9.1 mg/dL L=8.3 H=10.5 29942-2 LOINC AST 30 U/L L=15 H=46 1920-8 LOINC ALT 28 U/L L=9 H=72 1742-6 LOINC ALKALINE PHOS 74 U/L L=38 H=126 6768-6 LOINC TOTAL BILI 1.4 mg/dL L=0.2 H=1.3 1975-2 LOINC H ALBUMIN 4.1 G/dL L=3.5 H=5.0 1751-7 LOINC TOTAL PROTEIN 7.0 g/L L=6.3 H=8.2 2885-2 LOINC A/G RATIO 1.4 58683-1 LOINC AGE 78 25635-3 LOINC eGFR NON-AFR 116 ml/min eGFR AFR AMER 140 ml/min QUANTIFERON GOLD SINGLE TUBE - Collect Date/Time: 12/30/2023 14:09 [facility] ID: [id number] [place], [place], [phone] LOINC: 00913-8 Test Value Unit Reference Range Code Code System Flag SOURCE: BLOOD SEND TO [facility]? NO QuantiFERON Incubation Incubation performed. QuantiFERON-TB Gold Plus Negative Negative 06145-1 LOINC QuantiFERON Criteria COMMENT 8251-1 LOINC QuantiFERON TB1 Ag Value 0.12 84848-6 LOINC QuantiFERON TB2 Ag Value 0.13 15355-7 LOINC QuantiFERON Nil Value 0.04 31595-1 LOINC QuantiFERON Mitogen Value >10.00 70585-7 LOINC Social History Type Status Start Date End Date Code Code Syst em Smoking History Former smoker 7254191 SNOMED CT Sex Male Medications Medication Start Date End Date Route Frequency Dose Code Code System Medication Instructions Home Meds Atorvastatin Calcium 80MG Oral Tablet 06/08/2020 Unknown ORAL ONCE A DAY 80 MILLIGRAMS 000409 RxNorm TAKE 80 MILLIGRAMS ORAL ONCE A DAY Vitamin D3 10 MCG Oral Tablet 08/27/2023 Unknown ORAL ONCE A DAY 10 MCG 710649 RxNorm TAKE 10 MCG ORAL ONCE A DAY Vitamin C 1000MG Oral Tablet 12/10/2023 Unknown ORAL ONCE A DAY 1000 MILLIGRAMS 222756 RxNorm TAKE 1000 MILLIGRAMS ORAL ONCE A DAY metFORMIN HCl 500MG Oral Tablet 12/10/2023 Unknown ORAL ONCE A DAY 500 MILLIGRAMS 306055 RxNorm TAKE 500 MILLIGRAMS ORAL ONCE A [...] RxNorm ASPIRIN Active 1191 RxNorm QUINAPRIL Active 17007 RxNorm QUINAPRIL Active 35519 RxNorm No Known Drug Allergies Active 030517679 SNOMED-CT No Known Drug Allergies Active 663374389 SNOMED-CT No Known Allergies Active 342008224 SNO MED-CT Plan of Treatment Colonoscopy 08/27/2023 Sigmoidoscopy Flexible 12/10/2023 Encounters Encounter Diagnosis Start Date Code Code Sys tem Ulcerative colitis, unspecified, without complications 12/30/2023 SNOMED-CT Personal Care Team Section Performer Name Performer Role Active Date Inactive Da te
--- OUTSIDE RECORDS SUMMARY | 2024-05-20 11:15 | XMS_ITS | Encounter Summary ---
Author Organization [facility] Facility Care Team Providers Care Equal Opportunity Director Name Role Phone Leonard Cage MD Primary Care Provider [phone] Leonard Cage MD Primary Care Provider [phone] Leonard Cage MD Unavailable [phone] Luis Alejandro DPM Primary Care Provider [phone] Encounter Details Date Type Department Care Team (Latest Contact Info) Description 04/22/2017 Orders Only [facility] CLINCONV ProviderKay MD [address] [place] [address] Social History Tobacco Use Types Packs/Day Years Used Date Smoking Tobacco: Never Assessed Sex and Gender Information Value Date Recorded Sex Assigned at Not on file Legal Sex Male 12:24 AM INSTALLATION SUPERINTENDENT Gender Identity Male 06/09/2021 8:03 AM CDT Sexual Orientation Bisexual 06/09/2021 8: 03 AM CDT documented as of this encounter Plan of Treatment Not on file documented as of this encounter Procedures Procedure Name Priority Date/Time Associated Diagnosis Comments CARDIOLOGY REPORT 04/22/2017 12: 00 AM INSTALLATION SUPERINTENDENT documented in this encounter Results * CARDIOLOGY REPORT (04/22/2017 12:00 AM INSTALLATION SUPERINTENDENT) Anatomical Region Laterality Modality Other Narrative 04/22/2017 12:00 AM INSTALLATION SUPERINTENDENT Ordered by an unspecified provider. Historical Provider [facility] MENG GILL Final Result documented in this encounter Visit Diagnoses Not on filedocumented in this encounter Care Teams Equal Opportunity Director Relationship Specialty Start Date End Date Leonard Cage MD PCP - General 07/07/17 08/04/18 Leonard Cage MD PCP - General Family Medicine 08/05/18 10/27/18 Luis Alejandro DPM [address] [place] [address] PCP - General Orthotics 10/28/18 03/31/19 Leonard Cage MD 08/05/18 08/05/18 documented as of this encounter
--- OUTSIDE RECORDS SUMMARY | 2024-05-20 11:15 | XMS_ITS ---
Author Organization Unknown Address [address] [place] [id number] Phone Care Team Providers Care Silicator Name Role Phone CRISTI Jang Attending Unavailable [...] Code Syst em Smoking History Former smoker 7498646 SNOMED CT Sex Male Vital Signs Vital Sign Value Unit [place] Value [place] Unit Date/Time Recent/Initial? Code Code System Body Mass Index 29.13 kg/m2 01/04/2024 09:42 Initial 95997 -5 LOINC Systolic Blood Pressure 212 mm[Hg] 01/04/2024 09:41 Initial 8480- 6 LOINC Diastolic Blood Pressure 72 mm[Hg] 01/04/2024 09:41 Initial 8462- 4 LOINC Body Surface Area 2.13 m2 01/04/2024 09:42 Initial 3140- 1 LOINC Height 177.800 0 cm 70.00 in 01/04/2024 09:42 Initial 8302- 2 LOINC O2 Saturation 100 % 2023 09:41 Initial 20164 -5 LOINC Pulse 64.0 /min 01/04/2024 09:41 Initial 8867- 4 LOINC Respiration 22 /min 01/04/20 09:41 Initial 9279- 1 LOINC Temperature 36.3 Basia 97.4 F 01/04/20 09:41 Initial 8310- 5 [facility] Weight 92.08 kg 203.00 lbs 01/04/2024 09:42 Initial 78666 -7 [facility] Medications Medication Start Date End Date Route Frequency Dose Code Code System Medication Instructions Home Meds Atorvastatin Calcium 80MG Oral Tablet 06/08/2020 Unknown ORAL ONCE A DAY 80 MILLIGRAMS 466786 RxNorm TAKE 80 MILLIGRAMS ORAL ONCE A DAY Vitamin D3 10 MCG Oral Tablet 08/27/2023 Unknown ORAL ONCE A DAY 10 MCG 849457 RxNorm TAKE 10 MCG ORAL ONCE A DAY Vitamin C 1000MG Oral Tablet 12/10/2023 Unknown ORAL ONCE A DAY 1000 MILLIGRAMS 988589 RxNorm TAKE 1000 MILLIGRAMS ORAL ONCE A DAY metFORMIN HCl 500MG Oral Tablet 12/10/2023 Unknown ORAL ONCE A DAY 500 MILLIGRAMS 669586 RxNorm TAKE 500 MILLIGRAMS ORAL ONCE A [...] RxNorm ASPIRIN Active 1191 RxNorm QUINAPRIL Active 80144 RxNorm QUINAPRIL Active 25744 RxNorm No Known Drug Allergies Active 487733788 SNOMED-CT No Known Drug Allergies Active 632327171 SNOMED-CT No Known Allergies Active 256754705 SNO MED-CT Plan of Treatment Colonoscopy 08/27/2023 Sigmoidoscopy Flexible 12/10/2023 Encounters Encounter Diagnosis Start Date Code Code Sys tem Ulcerative colitis 01/04/2024 54016470 SNOMED-CT Personal Care Team Section Performer Name Performer Role Active Date Inactive Da te
--- OUTSIDE RECORDS SUMMARY | 2024-05-20 11:15 | XMS_ITS | Encounter Summary ---
Author Organization [facility] Facility Care Team Providers Care Inoculator Name Role Phone Leonard Cage MD Primary Care Provider [phone] Leonard Cage MD Primary Care Provider [phone] Leonard Cage MD Unavailable [phone] Luis Alejandro DPM Primary Care Provider [phone] Encounter Details Date Type Department Care Team (Latest Contact Info) Description 10/21/2016 Orders Only [facility] CLINCONV ProviderKay MD [address] [place] [address] Social History Tobacco Use Types Packs/Day Years Used Date Smoking Tobacco: Never Assessed Sex and Gender Information Value Date Recorded Sex Assigned at Not on file Legal Sex Male 12:24 AM MANAGER STRATEGY & ACCOUNT Gender Identity Male 06/09/2021 8:03 AM CDT Sexual Orientation Bisexual 06/09/2021 8: 03 AM CDT documented as of this encounter Plan of Treatment Not on file documented as of this encounter Procedures Procedure Name Priority Date/Time Associated Diagnosis Comments SCAN - LABS 10/23/2016 12:00 AM CDT SCAN - LABS 10/21/2016 12:00 AM CDT documented in this encounter Results * SCAN - LABS (10/23/2016 12:00 AM CDT) Narrative 10/23/2016 12:00 AM CDT Ordered by an unspecified provider. Historical Provider Final Res ult * SCAN - LABS (10/21/2016 12:00 AM CDT) Narrative 10/21/2016 12:00 AM CDT Ordered by an unspecified provider. Historical Provider Final Res ult documented in this encounter Visit Diagnoses Not on filedocumented in this encounter Care Teams Inoculator Relationship Specialty Start Date End Date Leonard Cage MD PCP - General 07/07/17 08/04/18 Leonard Cage MD PCP - General Family Medicine 08/05/18 10/27/18 Luis Alejandro DPM [address] [place] [address] PCP - General Orthotics 10/28/18 03/31/19 Leonard Cage MD 08/05/18 08/05/18 documented as of this encounter
--- OUTSIDE RECORDS SUMMARY | 2024-05-20 11:15 | XMS_ITS | Encounter Summary ---
Author Organization [facility] Facility Care Team Providers Care Casino Cashier Name Role Phone Leonard Cage MD Primary Care Provider [phone] Leonard Cage MD Primary Care Provider [phone] Leonard Cage MD Unavailable [phone] Luis Alejandro DPM Primary Care Provider [phone] Encounter Details Date Type Department Care Team (Latest Contact Info) Description 03/16/2017 Orders Only [facility] CLINCONV ProviderKay MD [address] [place] [address] Social History Tobacco Use Types Packs/Day Years Used Date Smoking Tobacco: Never Assessed Sex and Gender Information Value Date Recorded Sex Assigned at Not on file Legal Sex Male 12:24 AM BANDER AND CELLOPHANER MACHINE Gender Identity Male 06/09/2021 8:03 AM CDT Sexual Orientation Bisexual 06/09/2021 8: 03 AM CDT documented as of this encounter Plan of Treatment Not on file documented as of this encounter Procedures Procedure Name Priority Date/Time Associated Diagnosis Comments COLONOSCOPY - SCAN 03/16/2017 12 :00 AM BANDER AND CELLOPHANER MACHINE documented in this encounter Results * COLONOSCOPY - SCAN (03/16/2017 12:00 AM BANDER AND CELLOPHANER MACHINE) Narrative 03/16/2017 12:00 AM BANDER AND CELLOPHANER MACHINE Ordered by an unspecified provider. us Historical Provider Final Res ult documented in this encounter Visit Diagnoses Not on filedocumented in this encounter Care Teams Casino Cashier Relationship Specialty Start Date End Date Leonrad Cage MD PCP - General 07/07/17 08/04/18 Leonard Cage MD PCP - General Family Medicine 08/05/18 10/27/18 Luis Alejandro DPM [address] [place] [address] PCP - General Orthotics 10/28/18 03/31/19 Leonard Cage MD 08/05/18 08/05/18 documented as of this encounter
--- OUTSIDE RECORDS SUMMARY | 2024-05-20 11:15 | XMS_ITS | Encounter Summary ---
Author Organization [facility] Address [address] [place] [address] Care Team Providers Care Electronic Communications Technician Name Role Phone Leonard Cage MD Primary Care Provider [phone] Encounter Details Date Type Department Care Team (Late st Contact Info) Description 01/05/2017 Therapy Plan [facility] [place] [address] Stacy Correa RN Social History Tobacco Use Types Packs/Day Years Used Date Smoking Tobacco: Never Assessed Sex and Gender Information Value Date Recorded Sex Assigned at Not on file Legal Sex Male 4:27 PM CDT Gender Identity Not on file Sexual Orientation Not on file documented as of this encounter Plan of Treatment Not on file documented as of this encounter Visit Diagnoses Not on filedocumented in this encounter Care Teams Electronic Communications Technician Relationship Specialty Start Date End Date Leonard Cage MD PCP - General 09/16/16 documented as of this encounter
--- OUTSIDE RECORDS SUMMARY | 2024-05-20 11:15 | XMS_ITS | Encounter Summary ---
Author Organization [facility] Facility Care Team Providers Care Animal Services Officer Name Role Phone Leonard Cage MD Primary Care Provider [phone] Leonard Cage MD Primary Care Provider [phone] Leonard Cage MD Unavailable [phone] Luis Alejandro DPM Primary Care Provider [phone] Encounter Details Date Type Department Care Team (Latest Contact Info) Description 03/25/2017 Orders Only [facility] CLINCONV Provider, MD Kay [address] [place] [address] Social History Tobacco Use Types Packs/Day Years Used Date Smoking Tobacco: Never Assessed Sex and Gender Information Value Date Recorded Sex Assigned at Not on file Legal Sex Male 12:24 AM TEST CARRIER Gender Identity Male 06/09/2021 8:03 AM CDT Sexual Orientation Bisexual 06/09/2021 8: 03 AM CDT documented as of this encounter Plan of Treatment Not on file documented as of this encounter Procedures Procedure Name Priority Date/Time Associated Diagnosis Comments SCAN - LABS 03/25/2017 12:00 AM TEST CARRIER SCAN - LABS 03/25/2017 12:00 AM TEST CARRIER documented in this encounter Results * SCAN - LABS (03/25/2017 12:00 AM TEST CARRIER) Narrative 03/25/2017 12:00 AM TEST CARRIER Ordered by an unspecified provider. Historical Provider Final Res ult * SCAN - LABS (03/25/2017 12:00 AM TEST CARRIER) Narrative 03/25/2017 12:00 AM TEST CARRIER Ordered by an unspecified provider. us Historical Provider MD [place] Res ult documented in this encounter Visit Diagnoses Not on filedocumented in this encounter Care Teams Animal Services Officer Relationship Specialty Start Date End Date Leonard Cage MD PCP - General 07/07/17 08/04/18 Leonard Cage MD PCP - General Family Medicine 08/05/18 10/27/18 Luis Alejandro DPM [address] [place] [address] PCP - General Orthotics 10/28/18 03/31/19 Leonard Cage MD 08/05/18 08/05/18 documented as of this encounter
--- OUTSIDE RECORDS SUMMARY | 2024-05-20 11:15 | XMS_ITS | Encounter Summary ---
Author Organization [facility] Facility Care Team Providers Care Shipfitter Apprentice Name Role Phone Leonard Cage MD Primary Care Provider [phone] Leonard Cage MD Primary Care Provider [phone] Leonard Cage MD Unavailable [phone] Luis Alejandro DPM Primary Care Provider [phone] Encounter Details Date Type Department Care Team (Latest Contact Info) Description 06/30/2017 Orders Only [facility] CLINCONV ProviderKay MD [address] [place] [address] Social History Tobacco Use Types Packs/Day Years Used Date Smoking Tobacco: Never Assessed Sex and Gender Information Value Date Recorded Sex Assigned at Not on file Legal Sex Male 12:24 AM SENIOR HR GENERALIST Gender Identity Male 06/09/2021 8:03 AM CDT Sexual Orientation Bisexual 06/09/2021 8: 03 AM CDT documented as of this encounter Plan of Treatment Not on file documented as of this encounter Procedures Procedure Name Priority Date/Time Associated Diagnosis Comments SCAN - LABS 07/31/2017 12:00 AM CDT SCAN - LABS 07/01/2017 12:00 AM CDT SCAN - LABS 06/30/2017 12:00 AM CDT documented in this encounter Results * SCAN - LABS (07/31/2017 12:00 AM CDT) Narrative 07/31/2017 12:00 AM CDT Ordered by an unspecified provider. Historical Provider Final Res ult * SCAN - LABS (07/01/2017 12:00 AM CDT) Narrative 07/01/2017 12:00 AM CDT Ordered by an unspecified provider. Historical Provider Final Res ult * SCAN - LABS (06/30/2017 12:00 AM CDT) Narrative 06/30/2017 12:00 AM CDT Ordered by an unspecified provider. Historical Provider Final Res ult documented in this encounter Visit Diagnoses Not on filedocumented in this encounter Care Teams Shipfitter Apprentice Relationship Specialty Start Date End Date Leonard Cage MD PCP - General 07/07/17 08/04/18 Leonard Cage MD PCP - General Family Medicine 08/05/18 10/27/18 Luis Alejandro DPM [address] [place] [address] PCP - General Orthotics 10/28/18 03/31/19 Leonard Cage MD 08/05/18 08/05/18 documented as of this encounter
--- OUTSIDE RECORDS SUMMARY | 2024-05-20 11:16 | XMS_ITS | Encounter Summary ---
Author Organization [facility] Facility Care Team Providers Care Signal Integrity Engineer Name Role Phone Leonard Cage MD Primary Care Provider Leonard Cage MD Primary Care Provider [phone] Leonard Cage MD Unavailable [phone] Luis Alejandro DPM Primary Care Provider [phone] Encounter Details Date Type Department Care Team (Latest Contact Info) Description 01/04/2016 Orders Only [facility] CLINCONV ProviderKay MD [address] [place] [address] Social History Tobacco Use Types Packs/Day Years Used Date Smoking Tobacco: Never Assessed Sex and Gender Information Value Date Recorded Sex Assigned at Not on file Legal Sex Male 12:24 AM LEAD QUALITY TECHNICIAN Gender Identity Male 06/09/2021 8:03 AM CDT Sexual Orientation Bisexual 06/09/2021 8: 03 AM CDT documented as of this encounter Plan of Treatment Not on file documented as of this encounter Procedures Procedure Name Priority Date/Time Associated Diagnosis Comments SCAN - LABS 01/14/2016 12:00 AM LEAD QUALITY TECHNICIAN SCAN - LABS 01/07/2016 12:00 AM LEAD QUALITY TECHNICIAN SCAN - LABS 01/04/2016 12:00 AM CDT documented in this encounter Results * SCAN - LABS (01/14/2016 12:00 AM LEAD QUALITY TECHNICIAN) Narrative 01/14/2016 12:00 AM LEAD QUALITY TECHNICIAN Ordered by an unspecified provider. us Historical Provider MD Final Res ult * SCAN - LABS (01/07/2016 12:00 AM LEAD QUALITY TECHNICIAN) Narrative 01/07/2016 12:00 AM LEAD QUALITY TECHNICIAN Ordered by an unspecified provider. Historical Provider Final Res ult * SCAN - LABS (01/04/2016 12:00 AM CDT) Narrative 01/04/2016 12:00 AM CDT Ordered by an unspecified provider. Historical Provider Final Res ult documented in this encounter Visit Diagnoses Not on filedocumented in this encounter Care Teams Signal Integrity Engineer Relationship Specialty Start Date End Date Leonard Cage MD PCP - General 07/07/17 08/04/18 Leonard Cage MD PCP - General Family Medicine 08/05/18 10/27/18 Luis Alejandro DPM [address] [place] [address] PCP - General Orthotics 10/28/18 03/31/19 Leonard Cage MD 08/05/18 08/05/18 documented as of this encounter
--- OUTSIDE RECORDS SUMMARY | 2024-05-20 11:16 | XMS_ITS | Encounter Summary ---
Author Organization [facility] Facility Care Team Providers Care Employer Relations Representative Name Role Phone Leonard Cage MD Primary Care Provider [phone] Leonard Cage MD Primary Care Provider [phone] Leonard Cage MD Unavailable [phone] Luis Alejandro DPM Primary Care Provider [phone] Encounter Details Date Type Department Care Team (Latest Contact Info) Description 05/30/2016 Orders Only [facility] CLINCONV ProviderKay MD [address] [place] [address] Social History Tobacco Use Types Packs/Day Years Used Date Smoking Tobacco: Never Assessed Sex and Gender Information Value Date Recorded Sex Assigned at Not on file Legal Sex Male 12:24 AM TYPE INSPECTOR Gender Identity Male 06/09/2021 8:03 AM CDT Sexual Orientation Bisexual 06/09/2021 8: 03 AM CDT documented as of this encounter Plan of Treatment Not on file documented as of this encounter Procedures Procedure Name Priority Date/Time Associated Diagnosis Comments SCAN - LABS 05/30/2016 12:00 AM CDT documented in this encounter Results * SCAN - LABS (05/30/2016 12:00 AM CDT) Narrative 05/30/2016 12:00 AM CDT Ordered by an unspecified provider. us Historical Provider Final Res ult documented in this encounter Visit Diagnoses Not on filedocumented in this encounter Care Teams Employer Relations Representative Relationship Specialty Start Date End Date Leonard Cage MD PCP - General 07/07/17 08/04/18 Leonard Cage MD PCP - General Family Medicine 08/05/18 10/27/18 Luis Alejandro DPM [address] [place] [address] PCP - General Orthotics 10/28/18 03/31/19 Leonard Cage MD 08/05/18 08/05/18 documented as of this encounter
--- OUTSIDE RECORDS SUMMARY | 2024-05-20 11:16 | XMS_ITS | Encounter Summary ---
Author Organization [facility] Facility Care Team Providers Care Rouge Presser Name Role Phone Leonard Cage MD Primary Care Provider [phone] Leonard Cage MD Primary Care Provider [phone] Leonard Cage MD Unavailable [phone] Luis Alejandro DPM Primary Care Provider [phone] Encounter Details Date Type Department Care Team (Latest Contact Info) Description 01/26/2017 Orders Only [facility] CLINCONV Provider, MD Kay [address] [place] [address] Social History Tobacco Use Types Packs/Day Years Used Date Smoking Tobacco: Never Assessed Sex and Gender Information Value Date Recorded Sex Assigned at Not on file Legal Sex Male 12:24 AM CHAR CONVEYOR TENDER Gender Identity Male 06/09/2021 8:03 AM CDT Sexual Orientation Bisexual 06/09/2021 8: 03 AM CDT documented as of this encounter Plan of Treatment Not on file documented as of this encounter Procedures Procedure Name Priority Date/Time Associated Diagnosis Comments SCAN - LABS 01/26/2017 12:00 AM CHAR CONVEYOR TENDER documented in this encounter Results * SCAN - LABS (01/26/2017 12:00 AM CHAR CONVEYOR TENDER) Narrative 01/26/2017 12:00 AM CHAR CONVEYOR TENDER Ordered by an unspecified provider. us Historical Provider Final Res ult documented in this encounter Visit Diagnoses Not on filedocumented in this encounter Care Teams Rouge Presser Relationship Specialty Start Date End Date Leonard Cage MD PCP - General 07/07/17 08/04/18 Leonard Cage MD PCP - General Family Medicine 08/05/18 10/27/18 Luis Alejandro DPM [address] [place] [address] PCP - General Orthotics 10/28/18 03/31/19 Leonard Cage MD 08/05/18 08/05/18 documented as of this encounter
--- OUTSIDE RECORDS SUMMARY | 2024-05-20 11:16 | XMS_ITS | Encounter Summary ---
Author Organization [facility] Facility Care Team Providers Care Burner Shaft Name Role Phone Leonard Cage MD Primary Care Provider [phone] Leonard Cage MD Primary Care Provider [phone] Leonard Cage MD Unavailable [phone] Luis Alejandro DPM Primary Care Provider [phone] Encounter Details Date Type Department Care Team (Latest Contact Info) Description 11/19/2015 Orders Only [facility] CLINCONV ProviderKay MD [address] [place] [address] Social History Tobacco Use Types Packs/Day Years Used Date Smoking Tobacco: Never Assessed Sex and Gender Information Value Date Recorded Sex Assigned at Not on file Legal Sex Male 12:24 AM SALES FLOOR ASSOCIATE Gender Identity Male 06/09/2021 8:03 AM CDT Sexual Orientation Bisexual 06/09/2021 8: 03 AM CDT documented as of this encounter Plan of Treatment Not on file documented as of this encounter Procedures Procedure Name Priority Date/Time Associated Diagnosis Comments SCAN - LABS 11/19/2015 12:00 AM CDT SCAN - LABS 11/19/2015 12:00 AM CDT documented in this encounter Results * SCAN - LABS (11/19/2015 12:00 AM CDT) Narrative 11/19/2015 12:00 AM CDT Ordered by an unspecified provider. Historical Provider Final Res ult * SCAN - LABS (11/19/2015 12:00 AM CDT) Narrative 11/19/2015 12:00 AM CDT Ordered by an unspecified provider. Historical Provider Final Res ult documented in this encounter Visit Diagnoses Not on filedocumented in this encounter Care Teams Burner Shaft Relationship Specialty Start Date End Date Leonard Cage MD PCP - General 07/07/17 08/04/18 Leonard Cage MD PCP - General Family Medicine 08/05/18 10/27/18 Luis Alejandro DPM [address] [place] [address] PCP - General Orthotics 10/28/18 03/31/19 Leonard Cage MD 08/05/18 08/05/18 documented as of this encounter
--- OUTSIDE RECORDS SUMMARY | 2024-05-20 11:16 | XMS_ITS | Encounter Summary ---
Author Organization [facility] Facility Care Team Providers Care Salary And Wage Administrator Name Role Phone Leonard Cage MD Primary Care Provider [phone] Leonard Cage MD Primary Care Provider [phone] Leonard Cage MD Unavailable [phone] Luis Alejandro DPM Primary Care Provider [phone] Encounter Details Date Type Department Care Team (Latest Contact Info) Description 05/29/2016 Orders Only [facility] CLINCONV ProviderKay MD [address] [place] [address] Social History Tobacco Use Types Packs/Day Years Used Date Smoking Tobacco: Never Assessed Sex and Gender Information Value Date Recorded Sex Assigned at Not on file Legal Sex Male 12:24 AM MARKET DEVELOPMENT ANALYST Gender Identity Male 06/09/2021 8:03 AM CDT [...] on filedocumented in this encounter Care Teams Salary And Wage Administrator Relationship Specialty Start Date End Date Leonard Cage MD PCP - General 07/07/17 08/04/18 Leonard Cage MD PCP - General Family Medicine 08/05/18 10/27/18 Luis Alejandro DPM [address] [place] [address] PCP - General Orthotics 10/28/18 03/31/19 Leonard Cage MD 08/05/18 08/05/18 documented as of this encounter
--- OUTSIDE RECORDS SUMMARY | 2024-05-20 11:16 | XMS_ITS | Encounter Summary ---
Author Organization [facility] Facility Care Team Providers Care Marketing Production Specialist Name Role Phone Leonard Cage MD Primary Care Provider [phone] Leonard Cage MD Primary Care Provider [phone] Leonard Cage MD Unavailable [phone] Luis Alejandro DPM Primary Care Provider [phone] Encounter Details Date Type Department Care Team (Latest Contact Info) Description 12/23/2016 Orders Only [facility] CLINCONV ProviderKay MD [address] [place] [address] Social History Tobacco Use Types Packs/Day Years Used Date Smoking Tobacco: Never Assessed Sex and Gender Information Value Date Recorded Sex Assigned at Not on file Legal Sex Male 12:24 AM RN ACUTE CARE Gender Identity Male 06/09/2021 8:03 AM CDT Sexual Orientation Bisexual 06/09/2021 8: 03 AM CDT documented as of this encounter Plan of Treatment Not on file documented as of this encounter Procedures Procedure Name Priority Date/Time Associated Diagnosis Comments SCAN - LABS 12/24/2016 12:00 AM CDT SCAN - LABS 12/23/2016 12:00 AM CDT documented in this encounter Results * SCAN - LABS (12/24/2016 12:00 AM CDT) Narrative 12/24/2016 12:00 AM CDT Ordered by an unspecified provider. Historical Provider Final Res ult * SCAN - LABS (12/23/2016 12:00 AM CDT) Narrative 12/23/2016 12:00 AM CDT Ordered by an unspecified provider. Historical Provider Final Res ult documented in this encounter Visit Diagnoses Not on filedocumented in this encounter Care Teams Marketing Production Specialist Relationship Specialty Start Date End Date Leonard Cage MD PCP - General 07/07/17 08/04/18 Leonard Cage MD PCP - General Family Medicine 08/05/18 10/27/18 Luis Alejandro DPM [address] [place] [address] PCP - General Orthotics 10/28/18 03/31/19 Leonard Cage MD 08/05/18 08/05/18 documented as of this encounter
--- OUTSIDE RECORDS SUMMARY | 2024-05-20 11:16 | XMS_ITS | Encounter Summary ---
Author Organization [facility] Facility Care Team Providers Care Editor Index Name Role Phone Leonard Cage MD Primary Care Provider [phone] Leonard Cage MD Primary Care Provider [phone] Leonard Cage MD Unavailable [phone] Luis Alejandro DPM Primary Care Provider [phone] Encounter Details Date Type Department Care Team (Latest Contact Info) Description 06/02/2016 Orders Only [facility] CLINCONV ProviderKay MD [address] [place] [address] Social History Tobacco Use Types Packs/Day Years Used Date Smoking Tobacco: Never Assessed Sex and Gender Information Value Date Recorded Sex Assigned at Not on file Legal Sex Male 12:24 AM GEOTHERMAL SYSTEM INSTALLER Gender Identity Male 06/09/2021 8:03 AM CDT Sexual Orientation Bisexual 06/09/2021 8: 03 AM CDT documented as of this encounter Plan of Treatment Not on file documented as of this encounter Procedures Procedure Name Priority Date/Time Associated Diagnosis Comments SCAN - LABS 06/02/2016 12:00 AM CDT documented in this encounter Results * SCAN - LABS (06/02/2016 12:00 AM CDT) Narrative 06/02/2016 12:00 AM CDT Ordered by an unspecified provider. us Historical Provider Final Res ult documented in this encounter Visit Diagnoses Not on filedocumented in this encounter Care Teams Editor Index Relationship Specialty Start Date End Date Leonard Cage MD PCP - General 07/07/17 08/04/18 Leonard Cage MD PCP - General Family Medicine 08/05/18 10/27/18 Luis Alejandro DPM [address] [place] [address] PCP - General Orthotics 10/28/18 03/31/19 Leonard Cage MD 08/05/18 08/05/18 documented as of this encounter
--- OUTSIDE RECORDS SUMMARY | 2024-05-20 11:16 | XMS_ITS | Encounter Summary ---
Author Organization [facility] Facility Care Team Providers Care Car Deliverer Name Role Phone Leonard Cage MD Primary Care Provider [phone] Leonard Cage MD Primary Care Provider [phone] Leonard Cage MD Unavailable [phone] Luis Alejandro DPM Primary Care Provider [phone] Encounter Details Date Type Department Care Team (Latest Contact Info) Description 03/11/2017 Orders Only [facility] CLINCONV ProviderKay MD [address] [place] [address] Social History Tobacco Use Types Packs/Day Years Used Date Smoking Tobacco: Never Assessed Sex and Gender Information Value Date Recorded Sex Assigned at Not on file Legal Sex Male 12:24 AM WEIGH BOSS Gender Identity Male 06/09/2021 8:03 AM CDT Sexual Orientation Bisexual 06/09/2021 8: 03 AM CDT documented as of this encounter Plan of Treatment Not on file documented as of this encounter Procedures Procedure Name Priority Date/Time Associated Diagnosis Comments COLONOSCOPY - SCAN 03/11/2017 12 :00 AM WEIGH BOSS documented in this encounter Results * COLONOSCOPY - SCAN (03/11/2017 12:00 AM WEIGH BOSS) Narrative 03/11/2017 12:00 AM WEIGH BOSS Ordered by an unspecified provider. us Historical Provider Final Res ult documented in this encounter Visit Diagnoses Not on filedocumented in this encounter Care Teams Car Deliverer Relationship Specialty Start Date End Date Leonard Cage MD PCP - General 07/07/17 08/04/18 Leonard Cage MD PCP - General Family Medicine 08/05/18 10/27/18 Luis Alejandro DPM [address] [place] [address] PCP - General Orthotics 10/28/18 03/31/19 Leonard Cage MD 08/05/18 08/05/18 documented as of this encounter
--- OUTSIDE RECORDS SUMMARY | 2024-05-20 11:16 | XMS_ITS | Encounter Summary ---
Author Organization [facility] Facility Care Team Providers Care Ui Ux Web Developer Name Role Phone Leonard Cage MD Primary Care Provider [phone] Leonard Cage MD Primary Care Provider [phone] Leonard Cage MD Unavailable [phone] Luis Alejandro DPM Primary Care Provider [phone] Encounter Details Date Type Department Care Team (Latest Contact Info) Description 07/22/2016 Orders Only [facility] CLINCONV ProviderKay MD [address] [place] [address] Social History Tobacco Use Types Packs/Day Years Used Date Smoking Tobacco: Never Assessed Sex and Gender Information Value Date Recorded Sex Assigned at Not on file 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 us Historical Provider Final Res ult documented in this encounter Visit Diagnoses Not on filedocumented in this encounter Care Teams Ui Ux Web Developer Relationship Specialty Start Date End Date Leonard Cage MD PCP - General 07/07/17 08/04/18 Leonard Cage MD PCP - General Family Medicine 08/05/18 10/27/18 Luis Alejandro DPM [address] [place] [address] PCP - General Orthotics 10/28/18 03/31/19 Leonard Cage MD 08/05/18 08/05/18 documented as of this encounter
--- OUTSIDE RECORDS SUMMARY | 2024-05-20 11:16 | XMS_ITS | Encounter Summary ---
Author Organization [facility] Facility Care Team Providers Care Tooth Clerk Name Role Phone Leonard Cage MD Primary Care Provider [phone] Leonard Cage MD Primary Care Provider [phone] Leonard Cage MD Unavailable [phone] Luis Alejandro DPM Primary Care Provider [phone] Encounter Details Date Type Department Care Team (Latest Contact Info) Description 10/13/2016 Orders Only [facility] CLINCONV ProviderKay MD [address] [place] [address] Social History Tobacco Use Types Packs/Day Years Used Date Smoking Tobacco: Never Assessed Sex and Gender Information Value Date Recorded Sex Assigned at Not on file Legal Sex Male 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 us Historical Provider Final Res ult documented in this encounter Visit Diagnoses Not on filedocumented in this encounter Care Teams Tooth Clerk Relationship Specialty Start Date End Date Leonard Cage MD PCP - General 07/07/17 08/04/18 Leonard Cage MD PCP - General Family Medicine 08/05/18 10/27/18 Luis Alejandro DPM [address] [place] [address] PCP - General Orthotics 10/28/18 03/31/19 Leonard Cage MD 08/05/18 08/05/18 documented as of this encounter
--- OUTSIDE RECORDS SUMMARY | 2024-05-20 11:16 | XMS_ITS | Encounter Summary ---
Author Organization [facility] Facility Care Team Providers Care Professor Of Historical Theology Name Role Phone Leonard Cage MD Primary Care Provider [phone] Leonard Cage MD Primary Care Provider [phone] Leonard Cage MD Unavailable [phone] Luis Alejandro DPM Primary Care Provider [phone] Encounter Details Date Type Department Care Team (Latest Contact Info) Description 07/18/2016 Orders Only [facility] CLINCONV ProviderKay MD [address] [place] [address] Social History Tobacco Use Types Packs/Day Years Used Date Smoking Tobacco: Never Assessed Sex and Gender Information Value Date Recorded Sex Assigned at Not on file Legal Sex Male 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
--- OUTSIDE RECORDS SUMMARY | 2024-05-20 11:16 | XMS_ITS ---
Author Organization Unknown Address [address] [place] [phone] Phone Care Team Providers Care Valet Name Role Phone CRISTI Jang Attending Unavailable [...] Code Syst em Smoking History Former smoker 0042916 SNOMED CT Sex Male Vital Signs Vital Sign Value Unit Boerne Value Boerne Unit Date/Time Recent/Initial? Code Code System Body Mass Index 27.26 kg/m2 09/14/2023 09:21 Initial 83993 -5 LOINC Systolic Blood Pressure 130 mm[Hg] 09/14/2023 09:14 Initial 8480- 6 LOINC Diastolic Blood Pressure 71 mm[Hg] 09/14/2023 09:14 Initial 8462- 4 LOINC Body Surface Area 2.06 m2 09/14/2023 09:21 Initial 3140- 1 LOINC Height 177.800 0 cm 70.00 in 09/14/2023 09:21 Initial 8302- 2 LOINC O2 Saturation 98 % 2023 09:14 Initial 92267 -5 LOINC Pulse 60.0 /min 09/14/2023 09:14 Initial 8867- 4 LOINC Respiration 22 /min 09/14/19 24 09:14 Initial 9279- 1 LOINC Temperature 36.0 Basia 96.8 F 07/15/20 24 09:14 Initial 8310- 5 [facility] Weight 86.18 kg 190.00 lbs 09/14/2023 09:21 Initial 61611 -7 [facility] Medications Medication Start Date End Date Route Frequency Dose Code Code System Medication Instructions Home Meds Atorvastatin Calcium 80MG Oral Tablet 06/08/2020 Unknown ORAL ONCE A DAY 80 MILLIGRAMS 803816 RxNorm TAKE 80 MILLIGRAMS ORAL ONCE A DAY Budesonide 3MG Oral Capsule, Delayed Release 08/27/2023 12/03/19 24 ORAL THREE TIMES A DAY 3 MILLIGRAMS 0920157 RxNorm TAKE 3 MILLIGRAMS ORAL THREE TIMES A DAY Ozempic 0.25 MG or 0.5 MG Doses 2 MG/3 ML Subcutaneous Solution 08/27/2023 12/03/19 24 SUBCUTA NEOUS ONCE A WEEK 1 unit(s) 5519164 RxNorm INJECT INTO 1 EACH SUBCUTANEOUS ONCE A WEEK Vitamin D3 10 MCG Oral Tablet 08/27/2023 Unknown ORAL ONCE A DAY 10 MCG 722495 RxNorm TAKE 10 MCG ORAL ONCE A DAY metFORMIN HCl 500MG Oral Tablet 08/27/2023 12/03/19 24 ORAL TWICE A DAY 500 MILLIGRAMS 654673 RxNorm TAKE 500 MILLIGRAMS ORAL TWICE A DAY Cortenema 100MG/60ML Rectal Enema 08/27/2023 12/03/19 24 RECTAL AT BEDTIME 0.5 450501 RxNorm INSERT 0.5 RECTAL AT BEDTIME Vitamin C 1000MG Oral Tablet 12/10/2023 Unknown ORAL ONCE A DAY 1000 MILLIGRAMS 825241 RxNorm TAKE 1000 MILLIGRAMS ORAL ONCE A DAY metFORMIN HCl 500MG Oral Tablet 12/10/2023 Unknown ORAL ONCE A DAY 500 MILLIGRAMS 191484 RxNorm TAKE 500 MILLIGRAMS ORAL ONCE A [...] RxNorm ASPIRIN Active 1191 RxNorm QUINAPRIL Active 23842 RxNorm QUINAPRIL Active 31939 RxNorm No Known Drug Allergies Active 246950572 SNOMED-CT No Known Drug Allergies Active 122377255 SNOMED-CT No Known Allergies Active 396526690 SNO MED-CT Plan of Treatment Colonoscopy 08/27/2023 Sigmoidoscopy Flexible 12/10/2023 Encounters Encounter Diagnosis Start Date Code Code Sys tem Ulcerative colitis 09/14/2023 [id number] SNOMED-CT Personal Care Team Section Performer Name Performer Role Active Date Inactive Da te
--- OUTSIDE RECORDS SUMMARY | 2024-05-20 11:16 | XMS_ITS | Encounter Summary ---
Author Organization [facility] Facility Care Team Providers Care Immigration Guard Name Role Phone Leonard Cage MD Primary Care Provider [phone] Leonard Cage MD Primary Care Provider [phone] Leonard Cage MD Unavailable [phone] Luis Alejandro DPM Primary Care Provider [phone] Encounter Details Date Type Department Care Team (Latest Contact Info) Description 10/09/2016 Orders Only [facility] CLINCONV ProviderKay MD [address] [place] [address] Social History Tobacco Use Types Packs/Day Years Used Date Smoking Tobacco: Never Assessed Sex and Gender Information Value Date Recorded Sex Assigned at Not on file Legal Sex Male 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 us Historical Provider Final Res ult documented in this encounter Visit Diagnoses Not on filedocumented in this encounter Care Teams Immigration Guard Relationship Specialty Start Date End Date Leonard Cage MD PCP - General 07/07/17 08/04/18 Leonard Cage MD PCP - General Family Medicine 08/05/18 10/27/18 Luis Alejandro DPM [address] [place] [address] PCP - General Orthotics 10/28/18 03/31/19 Leonard Cage MD 08/05/18 08/05/18 documented as of this encounter
--- OUTSIDE RECORDS SUMMARY | 2024-05-20 11:17 | XMS_ITS | Encounter Summary ---
Author Organization [facility] Facility Care Team Providers Care Warping Mill Operator Name Role Phone Leonard Cage MD Primary Care Provider [phone] Leonard Cage MD Primary Care Provider [phone] Leonard Cage MD Unavailable [phone] Luis Alejandro DPM Primary Care Provider [phone] Encounter Details Date Type Department Care Team (Latest Contact Info) Description 09/27/2015 Orders Only [facility] CLINCONV ProviderKay MD [address] [place] [address] Social History Tobacco Use Types Packs/Day Years Used Date Smoking Tobacco: Never Assessed Sex and Gender Information Value Date Recorded Sex Assigned at Not on file Legal 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 us Historical Provider Final Res ult documented in this encounter Visit Diagnoses Not on filedocumented in this encounter Care Teams Warping Mill Operator Relationship Specialty Start Date End Date Leonard Cage MD PCP - General 07/07/17 08/04/18 Leonard Cage MD PCP - General Family Medicine 08/05/18 10/27/18 Luis Alejandro DPM [address] [place] [address] PCP - General Orthotics 10/28/18 03/31/19 Leonard Cage MD 08/05/18 08/05/18 documented as of this encounter
--- OUTSIDE RECORDS SUMMARY | 2024-05-20 11:17 | XMS_ITS | Referral Summary ---
Author Organization [facility] [address] [place] [address] Address [address] [place] [address] Care Team Providers Care Gas Engine Mechanic Name Role Phone Unavailable Primary Care Provider Unavailabl e Encounters Date Type Department Care Team Description 04/12/2024 Telephone [facility] Accountable Care Organization [address] [place] [id number] Kimberli Brito Unsuccessful Phone Call 1 ([facility] aw[facility]) from Last 3 Months Allergies Active Allergy Reactions Criticality Noted Date Comments Aspirin Other (See comments) Low 10/13/2011 Blood in stool Quinapril Cough Low 07/18/2008 Medications balsalazide (COLAZAL) 750 mg capsule Take 1,500 mg by mouth 2 (two) times a day Active azaTHIOprine (IMURAN) 50 mg tablet 50 mg daily 018 Active lancets 23 gauge misc Rx: Lancets Thin - Miscellaneous, TAKE: as directed, ., REFILLS: 3 018 Active blood glucose diagnostic strip by in vitro route daily as needed 018 Active famotidine (PEPCID) 20 mg tabletIndications:Gastr oesophageal reflux disease with esophagitis Take 1 tablet (20 mg total) by mouth 2 (two) times a day 60 tablet 11 019 Active Additional Information Patient not taking.Reported on 02/18/2022 furosemide (LASIX) 20 mg tabletIndications:Edema of both legs Take 1 tablet (20 mg total) by mouth daily 30 tablet 3 020 Active Additional Information Patient not taking.Reported on 10/16/2021 losartan (COZAAR) 25 mg tablet Take by mouth daily Active cyanocobalamin (Vitamin B-12) 1,000 mcg tablet Take 1,000 mcg by mouth daily Active inFLIXimab (REMICADE) 100 mg injection Every 8 wks A ctive traMADoL (ULTRAM) 50 mg tabletIndications:Lumba r back pain Take 2 tablets (100 mg total) by mouth every 8 (eight) hours as needed for pain 240 tablet Active metFORMIN XR (GLUCOPHAGE XR) 500 mg 24 hr tabletIndications:Type 2 diabetes mellitus without complication, without long-term current use of insulin (HCC) Take 1 tablet (500 mg total) by mouth 2 (two) times a day 180 tablet 2 Active HYDROcodone-acetaminoph en (NORCO) 10-325 mg per tabletIndications:Pain Take 1 tablet by mouth every 8 (eight) hours as needed for pain 90 tablet Active Additional Information Patient not taking.Reported on 02/18/2022 semaglutide (Ozempic) 0.25 mg or 0.5 mg(2 mg/1.5 mL) pen injector injectionIndications:Ty pe 2 diabetes mellitus without complication, without long-term current use of insulin (HCC) Inject 0.5 mg under the skin once a week 1.5 mL 2 Active atorvastatin (LIPITOR) 80 mg tabletIndications:Pure hypercholesterolemia Take 1 tablet (80 mg total) by mouth daily 90 tablet 3 Active Active Problems Problem Noted Date Diagnosed Date Encounter for health-related screening 9 Anemia, iron deficiency 08/05/2018 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 Benign prostatic hyperplasia with lower urinary tract symptoms 09/01/2017 B12 deficiency 04/08/2017 Iron deficiency 04/07/2017 Colitis 08/13/2015 Diastolic dysfunction 08/02/2013 Type 2 diabetes mellitus 07/16/2013 Overview (06/06/2016): DMII WO CMP UNCNTRLD Morbid obesity 07/16/2013 Overview (06/06/2016): MORBID OBESITY Venous insufficiency (chronic) (peripheral) 11/01 Left anterior fascicular block 10/13/2011 Melena 10/13/2011 Essential (primary) hypertension 09/16/2010 Personal history of nicotine dependence 09/17/19 11 Overview (02/14/2021): too remote to screen Male erectile dysfunction, unspecified 0 Other dyspnea and respiratory abnormality 2009 Allergy status to other drug s, medicaments and biological substances 07/18/2008 Bradycardia, unspecified 07/18/2008 Atherosclerotic heart diseas e of [place] coronary artery without angina pectoris 06/22/2007 Obesity, unspecified 05/31/2007 Type 2 diabetes mellitus without complications 0 05/31/2007 Hyperlipidemia 05/31/2007 Resolved Problems Problem Noted Date Diagnosed Date Resolved Date Type 2 diabetes mellitus wit hout complication, without long-term current use of insulin 12/23/2017 10/07/2018 Immunizations Immunization Administration Dates Next Due Influenza, Quad, Adjuvantate d, Intramuscular 12/26/2020 Influenza, Quadrivalent, Hig h Dose, Preservative Free, Intrr 02/18/2022(Deferred: Patient Refused),12/27/2020,01/02/2020 Influenza, Trivalent, Adjuva nted, Intramuscular 12/07/2018 Influenza, Unspecified 12/26/2020,12/30/2016 UpCloo (J&J) SARS-CoV-2 Vaccination 05/25/2020 Pneumococcal Polysaccharide PPV23 10/16/2016, Tdap 12/03/2017 ZOSTER LIVE 12/30/2016,10/17/2011 Social History Tobacco Use Types Packs/Day Years Used Date Smoking Tobacco: Former Cigarettes 2 30 1 04/17/1958 - 02/14/1989 Smokeless Tobacco: Never Alcohol Use Standard Drinks/Week Comments Yes 0 (1 standard drink = 0.6 oz pur e alcohol) Humiliation, Afraid, Rape, and Kick questionnair e Answer Date Recorded Within the last year, have y ou been afraid of your partner or ex-partner? No 01/15/2021 Within the last year, have y ou been humiliated or emotionally abused in other ways by your partner or ex-partner? No Within the last year, have y ou been kicked, hit, slapped, or otherwise physically hurt by your partner or ex-partner? No 01/15/2021 Within the last year, have y ou been raped or forced to have any kind of sexual activity by your partner or ex-partner? No 01/15/2021 Social Connection and Isolat ion Panel [NHANES] Answer Date Recorded In a typical week, how many times do you talk on the phone with family, friends, or neighbors? More than three times a week 01/15/2021 How often do you get togethe r with friends or relatives? Three times a week 01/15/2021 How often do you attend chur or islam services? More than 4 times per year 01/15/2021 Do you belong to any clubs o r organizations such as yarsanism groups, unions, fraternal or athletic groups, or school groups? No 01/15/2021 How often do you attend meet ings of the clubs or organizations you belong to? Never 01/15/2021 Are you , , di vorced, , never , or living with a partner? 01/15/2021 AUDIT-C Answer Date Recorded Q1: How often do you have a drink containing alc ohol? Monthly or less 02/18/2022 Q2: How many drinks containi ng alcohol do you have on a typical day when you are drinking? 1 or 2 02/18/2022 Q3: How often do you have si x or more drinks on one occasion? Never 02/18/2022 Overall Financial Resource Strain (CARDIA) Answe r Date Recorded How hard is it for you to pa y for the very basics like food, housing, medical care, and heating? Not hard at all 01/15/2021 PHQ-2 Answer Date Recorded PHQ-2 Total Score (If total score is 3 or more points, staff should administer the PHQ-9) 0 02/18/2022 [facility] of Occupat ional Health - Occupational Stress Questionnaire Answer Date Recorded Do you feel stress - tense, restless, nervous, or anxious, or unable to sleep at night because your mind is troubled all the time - these days? Not at all 01/15/2021 Exercise Vital Sign Answer Date Recorde d On average, how many days pe r week do you engage in moderate to strenuous exercise (like a brisk walk)? 0 days 01/15/2021 On average, how many minutes do you engage in exercise at this level? 0 min 01/15/2021 Hunger Vital Sign Answer Date Recorded Within the past 12 months, y ou worried that your food would run out before you got the money to buy more. Never true 01/16/20 21 Within the past 12 months, t he food you bought just didn't last and you didn't have money to get more. Never true 01/15/2021 PRAPARE - Transportation Answer Date Re corded In the past 12 months, has l ack of transportation kept you from medical appointments or from getting medications? No 12/31 In the past 12 months, has l ack of transportation kept you from meetings, work, or from getting things needed for daily living? No 01/15/2021 Education Answer Date Recorded What is the highest level of school you have completed or the highest degree you have received? Some college, no degree 10/28/2018 Sex and Gender Information Value Date Recorded Sex Assigned at Not on file Legal Sex Male 12:24 AM LATHE SET UP PERSON Gender Identity Male 06/09/2021 8:03 AM CDT Sexual Orientation Bisexual 06/09/2021 8: 03 AM CDT Occupation Industry Job Start Date Job End Date retired, worked for the [employer] Not on file Not on file Not on file Last Filed Vital Signs Vital Sign Reading Time Taken Comments Blood Pressure 142/74 02/18/2022 2:50 PM LATHE SET UP PERSON Pulse 65 02/18/2022 2:50 PM LATHE SET UP PERSON Temperature 36.1 C (97 F) 02/18/2022 2:50 PM LATHE SET UP PERSON Respiratory Rate 18 02/18/2022 2:50 PM LATHE SET UP PERSON Oxygen Saturation 97% 02/18/2022 2:50 PM LATHE SET UP PERSON Inhaled Oxygen Concentration - - Weight 102.1 kg (225 lb) 02/18/2022 2:50 PM LATHE SET UP PERSON Height 180.3 cm (5' 10.98 ) 02/18/2022 2:[address] Body Mass Index 31.4 02/18/2022 2:50 PM LATHE SET UP PERSON Plan of Treatment Not on file Procedures Procedure Name Priority Date/Time Associated Diagnosis Comments HM HEMOGLOBIN A1C Routine 02/19/2022 LIPID PANEL Routine 10/18/2021 COLONOSCOPY Routine 06/08/2020 CT ABDOMEN PELVIS W CONTRAST Routine 07/30/2016 12:00 AM CDT from Last 3 Months or Most Recently Relevant to Health Maintenance Results * HM HEMOGLOBIN A1C (02/19/2022) Historical Provider HEALTH MAINTENANCE Final Result * Lipid panel (10/18/2021) SCRIBED Cholesterol, Total 117 0 - 150 EXTERNAL LAB SCRIBED HDL 50 40 - 60 EXTERNAL LAB SCRIBED LDL 49 0 - 130 EXTERNAL LAB SCRIBED Triglycerides 91 0 - 150 EXTERNAL LAB Blood specimen (specimen) Historical Provider LAB BLOOD ORDERABLES Edit ed Result - Final EXTERNAL LAB * (ABNORMAL) Colonoscopy (06/08/2020) Anatomical Region Laterality Modality Other Historical Provider ENDOSCOPY PROCEDURES Jana l Result * CT Abdomen Pelvis W Contrast (07/30/2016 12:00 AM CDT) Anatomical Region Laterality Modality Body N/A Computed Tomogra phy 07/30/2016 Impressions 07/31/2016 12:19 AM CDT 1.. Colitis involving the descending colon, sigmoid and rectal region without perforation, obstruction or focal fluid collection. Differential would include infectious or inflammatory etiologies. Less likely ischemic given patency of the visualized CLEMENT. Automated exposure control was used as a dose optimization technique for this examination. THIS IS AN ELECTRONICALLY VERIFIED REPORT 07/31/2016 12:15 AM: Talita Prescott M.D. Talita Prescott M.D. ML:ml 12:15 AM 12:15 AM TAY [EOD] Narrative 07/31/2016 12:19 AM CDT EXAMINATION: CT of the abdomen and pelvis with contrast COMPARISON: None HISTORY: Abdominal pain, history of colitis TECHNIQUE: Images from the diaphragm to the pubic symphysis were obtained withoutoral and following intravenous administration of 100 mL of Omnipaque 350 via the left antecubital fossa. Automated exposure control was used as a dose optimization technique for this examination. FINDINGS: Abdomen: The lung bases are clear. There is no pneumoperitoneum. The liver, decompressed gallbladder, pancreas and adrenal glands are normal. Calcifications about the spleen from prior granulomatous disease. There is a 2 cm simple cyst in the upper pole right kidney. There is a 2 mm right mid pole nephrolithiasis, nonobstructing. Tiny presumed simple cyst in the upper pole left kidney. No Nephro or ureterolithiasis. No hydronephrosis. Moderate atherosclerotic calcification of a nondilated abdominal aorta. No mesenteric or retroperitoneal lymphadenopathy. Pelvis: No free pelvic fluid. There is diffuse bowel wall edema and pericolonic soft tissue stranding about the descending colon, sigmoid and rectal region. There is a mild amount of more proximal stool but no high-grade bowel obstruction. CLEMENT appears patent. An appendix is not seen but no secondary signs to suggest appendicitis. No pelvic lymphadenopathy. The bones are intact. Procedure Note Provider, MD Kay - 07/16/2020 EXAMINATION: CT of the abdomen and pelvis with contrast COMPARISON: None HISTORY: Abdominal pain, history of colitis TECHNIQUE: Images from the diaphragm to the pubic symphysis were obtained withoutoral and following intravenous administration of 100 mL ofOmnipaque 350 via the left antecubital fossa. Automated exposure control was used asa dose optimization technique for this examination. FINDINGS: Abdomen: The lung bases are clear. There is no pneumoperitoneum. Theliver, decompressed gallbladder, pancreas and adrenal glands are normal. Calcifications about the spleen from prior granulomatous disease. Thereis a 2 cm simple cyst in the upper pole right kidney. There is a 2 mm rightmid pole nephrolithiasis, nonobstructing. Tiny presumed simple cyst in theupper pole left kidney. No Nephro or ureterolithiasis. No hydronephrosis. Moderate atherosclerotic calcification of a nondilated abdominal aorta.No mesenteric or retroperitoneal lymphadenopathy. Pelvis: No free pelvic fluid. There is diffuse bowel wall edema and pericolonic soft tissue stranding about the descending colon, sigmoid and rectal region. There is a mild amount of more proximal stool but no high-grade bowel obstruction. CLEMENT appears patent. An appendix is not seenbut no secondary signs to suggest appendicitis. No pelvic lymphadenopathy.The bones are intact. IMPRESSION: 1.. Colitis involving the descending colon, sigmoid and rectal regionwithout perforation, obstruction or focal fluid collection. Differential would include infectious or inflammatory etiologies. Less likely ischemic given patency of the visualized CLEMENT. Automated exposure control was used as a dose optimization technique forthis examination. THIS IS AN ELECTRONICALLY VERIFIED REPORT 07/31/2016 12:15 AM: Talita Prescott M.D. Talita Prescott M.D. ML:ml 12:15 AM 12:15 AM TAY [EOD] Alana Felton IMG CT PROCEDURES Final R esult from Last 3 Months or Most Recently Relevant to Health Maintenance Insurance MEDICARE RAILROAD FOR[facility]LY [facility] MEDICARE RAILROAD
--- OUTSIDE RECORDS SUMMARY | 2024-05-20 11:17 | XMS_ITS | Clinical Summary ---
Author Organization [facility] [id number] [facility] Address [address] [place] [address] Care Team Providers Care Chemical Mixer Name Role Phone Unavailable Primary Care Provider Unavailabl e Allergies Active Allergy Reactions Criticality Noted Date [...] 25 mg tablet Take by mouth daily 019 Active cyanocobalamin (Vitamin B-12) 1,000 mcg tablet Take 1,000 mcg by mouth daily 018 Active inFLIXimab (REMICADE) 100 mg injection Every [...] (two) times a day 180 tablet 2 022 Active HYDROcodone-acetaminoph en (NORCO) 10-325 mg per [...] skin once a week 1.5 mL 2 022 Active atorvastatin (LIPITOR) 80 mg tabletIndications:Pure hypercholesterolemia Take 1 tablet (80 mg total) by mouth daily 90 tablet 3 022 Active Active Problems Problem Noted Date Diagnosed [...] unspecified 07/18/2008 Atherosclerotic heart diseas e of [place] coronary artery without angina pectoris 06/22/2007 Obesity, unspecified 05/31/2007 Type 2 diabetes mellitus without complications 0 05/31/2007 Hyperlipidemia 05/31/2007 Resolved Problems Problem Noted Date Diagnosed Date Resolved Date Type 2 diabetes mellitus wit hout complication, without long-term current use of insulin 12/23/2017 10/07/2018 Encounters Date Type Department Care Team Description 04/12/2024 Telephone [facility] Care Organization [address] [place] [id number] Kimberli Brito Unsuccessful Phone Call 1 ([facility]) from Last 3 Months Immunizations Immunization Administration Dates Next Due Influenza, Quad, Adjuvantate d, Intramuscular 12/26/2020 Influenza, Quadrivalent, Hig h Dose, Preservative Free, Intrr 02/18/2022(Deferred: Patient Refused),12/27/2020,01/02/2020 Influenza, Trivalent, Adjuva nted, Intramuscular 12/07/2018 Influenza, Unspecified 12/26/2020,12/30/2016 [facility] (J&J) SARS-CoV-2 Vaccination 05/25/2020 Pneumococcal Polysaccharide PPV23 10/16/2016, Tdap 12/03/2017 ZOSTER LIVE 12/30/2016,10/17/2011 Surgical History Surgery Date Site/Laterality Comments CAROTID STENT LEG SURGERY Medical History Medical History Date Comments Coronary artery disease Arthritis Diabetes mellitus (HCC) Family History Medical History Relation Name Comments Heart disease Brother me Miscarriages / Stillbirths Brother me No Known Problems Daughter Cancer Father clarissa karoline Diabetes Father clarissa karoline No Known Problems Maternal Grandfather No Known Problems Maternal Grandmother Cancer Mother mom Heart disease Mother mom No Known Problems Other No Known Problems Paternal Grandfather No Known Problems Paternal Grandmother No Known Problems Sister 1 No Known Problems Sister 2 No Known Problems Sister 3 No Known Problems Son 1 No Known Problems Son 2 No Known Problems Son 3 Relation Name Status Comments Brother me Alive Daughter Alive Father clarissa wynneck Maternal Grandfather Maternal Grandmother Mother mom Other Paternal Grandfather Paternal Grandmother Sister 1 Alive Sister 2 Alive Sister 3 Alive Son 1 Alive Son 2 Alive Son 3 Alive Social History Tobacco Use Types Packs/Day Years [...] How often do you attend chur or restorationist services? 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 Gender Identity Male 06/09/2021 8:03 AM CDT Sexual Orientation Bisexual 06/09/2021 8: 03 AM CDT Occupation Industry Job Start Date Job End Date retired, worked for the rail [employer] Not on file Not on file Not on file Obstetrics History Last Filed Vital Signs Vital Sign Reading Time Taken Comments Blood Pressure 142/74 02/18/2022 2:50 PM HOSE TURNER Pulse 65 02/18/2022 2:50 PM HOSE TURNER Temperature 36.1 C (97 F) 02/18/2022 2:50 PM HOSE TURNER Respiratory Rate 18 02/18/2022 2:50 PM HOSE TURNER Oxygen Saturation 97% 02/18/2022 2:50 PM HOSE TURNER Inhaled Oxygen Concentration - - Weight 102.1 kg (225 lb) 02/18/2022 2:50 PM HOSE TURNER Height 180.3 cm (5' 10.98 ) 02/18/2022 2:[address] Body Mass Index 31.4 02/18/2022 2:50 PM HOSE TURNER Plan of Treatment Health Maintenance Due Date Last Done Comments Albumin Creatinine Ratio, Urine 1945 eGFR 1945 Dilated Eye Exam 1944 Foot Exam 1944 Hepatitis B Screening 1962 Zoster Vaccine (1 of 2) 02/24/2017 12/30/2016, 10/16 Pneumococcal vaccine 65+ (3 of 3 - PCV) 10/16/2017 10/16/2016, 10/17/2015 Covid-19 Vaccine (2 - Jansse n risk series) 06/22/2020 05/25/2020 Hemoglobin A1C 08/20/2022 02/19/2022, 09/30, 02/12/2021, Additional history exists Lipid Panel 10/18/2022 10/18/2021, 12/31, 07/30/2016, Additional history exists Depression Screening 02/18/2023 02/18/2022, 01/15/2021, 01/10/2020, Additional history exists Fall Risk Assessment 02/18/2023 02/18/2022, 01/15/2021, 01/10/2020, Additional history exists Well Visit 65+ 02/18/2023 02/18/2022, 12/31, 01/10/2020, Additional history exists Influenza Vaccine (#1) 2023 , 12/26/2020, 12/26/2020, Additional history exists DTaP/Tdap/Td Vaccine (2 - Td or Tdap) 12/04/2027 12/03/2017 Abdominal Aortic Aneurysm (A AA) Screen Completed 07/30/2016 Colon Cancer Screening-CT Colonography Discontinued 06/08/2020, 05/14/2018 Colon Cancer Screening-Colonoscopy Discontinued 06/08/2020, 05/14/2018 Colon Cancer Screening-DNA Stool Discontinued 06/09/19, 05/14/2018 Colon Cancer Screening-FIT Discontinued 06/08, 05/14/2018, 07/31/2016, Additional history exists Colon Cancer Screening-FOBT Discontinued 10/2020, 05/14/2018, 07/31/2016, Additional history exists Colon Cancer Screening-Sigmoidoscopy Discontinued 06/08/2020, 05/14/2018 Colorectal Cancer Screening Discontinued Procedures Procedure Name Priority Date/Time Associated Diagnosis [...] AM 12:15 AM TAY [EOD] Alana Felton IM CT PROCEDURES Final R esult from Last 3 Months or Most Recently Relevant to Health Maintenance Insurance MEDICARE RAILROAD PENDING SALE TO [facility] GENERIC MEDICARE RAILROAD
--- OUTSIDE RECORDS SUMMARY | 2024-05-20 11:17 | XMS_ITS | Encounter Summary ---
Author Organization [facility] Care Team Providers Care Spa Host Name Role Phone Leonard Cage MD Primary Care Provider [phone] Leonard Cage MD Primary Care Provider [phone] Leonard Cage MD Unavailable [phone] Luis Alejandro DPM Primary Care Provider [phone] Encounter Details Date Type Department Care Team (Latest Contact Info) Description 08/13/2015 Orders Only [facility]IN[facility] ProviderKay MD [address] [place] [id number] Social History Tobacco Use Types Packs/Day Years Used Date Smoking Tobacco: Never Assessed Sex and Gender Information Value Date Recorded Sex Assigned at Not on file Legal Sex Male 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 Historical Provider [facility] Final Result documented in this encounter Visit Diagnoses Not on filedocumented in this encounter Care Teams Spa Host Relationship Specialty Start Date End Date Leonard Cage MD PCP - General 07/07/17 08/04/18 Leonard Cage MD PCP - General Family Medicine 08/05/18 10/27/18 Luis Alejandro DPM [address] [place] [address] PCP - General Orthotics 10/28/18 03/31/19 Leonard Cage MD 08/05/18 08/05/18 documented as of this encounter
--- OUTSIDE RECORDS SUMMARY | 2024-05-20 11:17 | XMS_ITS | Encounter Summary ---
Author Organization [facility] Care Team Providers Care Loan Review Manager Name Role Phone Leonard Cage MD Primary Care Provider [phone] Leonard Cage MD Primary Care Provider [phone] Leonard Cage MD Unavailable [phone] Luis Alejandro DPM Primary Care Provider [phone] Encounter Details Date Type Department Care Team (Latest Contact Info) Description 09/28/2015 Orders Only [facility] CLINCONV ProviderKay MD [address] [place] [id number] Social History Tobacco Use Types Packs/Day Years Used Date Smoking Tobacco: Never Assessed Sex and Gender Information Value Date Recorded Sex Assigned at Not on file 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 us Historical Provider Final Res ult documented in this encounter Visit Diagnoses Not on filedocumented in this encounter Care Teams Loan Review Manager Relationship Specialty Start Date End Date Leonard Cage MD PCP - General 07/07/17 08/04/18 Leonard Cage MD PCP - General Family Medicine 08/05/18 10/27/18 Luis Alejandro DPM [address] [place] [address] PCP - General Orthotics 10/28/18 03/31/19 Leonard Cage MD 08/05/18 08/05/18 documented as of this encounter
--- OUTSIDE RECORDS SUMMARY | 2024-05-20 11:17 | XMS_ITS ---
Author Organization Unknown Address [address] [place] [address] [phone] Phone Care Team Providers Care Temperature Logging Operator Name Role Phone CRISTI Jang Attending Unavailable [...] Code Syst em Smoking History Former smoker 5029736 SNOMED CT Sex Male Vital Signs Vital Sign Value Unit [place] Value [place] Unit Date/Time Recent/Initial? Code Code System Body Mass Index 28.98 kg/m2 07/20/2023 09:11 Initial 32933 -5 LOINC Systolic Blood Pressure 147 mm[Hg] 07/20/2023 09:10 Initial 8480- 6 LOINC Diastolic Blood Pressure 65 mm[Hg] 07/20/2023 09:10 Initial 8462- 4 LOINC Body Surface Area 2.13 m2 07/20/2023 09:11 Initial 3140- 1 LOINC Height 177.800 0 cm 70.00 in 07/20/2023 09:11 Initial 8302- 2 LOINC O2 Saturation 99 % 2023 09:10 Initial 55802 -5 LOINC Pulse 59.0 /min 07/20/2023 09:10 Initial 8867- 4 LOINC Respiration 22 /min 07/20/19 09:10 Initial 9279- 1 LOINC Temperature 36.4 Basia 97.6 F 05/20/20 24 09:10 Initial 8310- 5 [facility] Weight 91.63 kg 202.00 lbs 07/20/2023 09:11 Initial 75459 -7 [facility] Medications Medication Start Date End Date Route Frequency Dose Code Code System Medication Instructions Home Meds Atorvastatin Calcium 80MG Oral Tablet 06/08/2020 Unknown ORAL ONCE A DAY 80 MILLIGRAMS 973307 RxNorm TAKE 80 MILLIGRAMS ORAL ONCE A DAY metFORMIN HCl 500MG Oral Tablet, Extended Release 06/08/2020 08/12/19 24 ORAL TWICE A DAY 500 MILLIGRAMS 010237 RxNorm TAKE 500 MILLIGRAMS ORAL TWICE A DAY Remicade 100MG Intravenous Powder for Solution 12/25/2022 08/12/19 24 INTRAVE NOUS EVERY 8 WEEKS 100 MILLIGRAMS 615760 RxNorm 100 MILLIGRAMS INTRAVENOUS EVERY 8 WEEKS Budesonide 3MG Oral Capsule, Delayed Release 08/27/2023 12/03/19 24 ORAL THREE TIMES A DAY 3 MILLIGRAMS 5244965 RxNorm TAKE 3 MILLIGRAMS ORAL THREE TIMES A DAY Ozempic 0.25 MG or 0.5 MG Doses 2 MG/3 ML Subcutaneous Solution 08/27/2023 12/03/19 24 SUBCUTA NEOUS ONCE A WEEK 1 unit(s) 9836583 RxNorm INJECT INTO 1 EACH SUBCUTANEOUS ONCE A WEEK Vitamin D3 10 MCG Oral Tablet 08/27/2023 Unknown ORAL ONCE A DAY 10 MCG 715996 RxNorm TAKE 10 MCG ORAL ONCE A DAY metFORMIN HCl 500MG Oral Tablet 08/27/2023 12/03/19 24 ORAL TWICE A DAY 500 MILLIGRAMS 343575 RxNorm TAKE 500 MILLIGRAMS ORAL TWICE A DAY Cortenema 100MG/60ML Rectal Enema 08/27/2023 12/03/19 24 RECTAL AT BEDTIME 0.5 167774 RxNorm INSERT 0.5 RECTAL AT BEDTIME Vitamin C 1000MG Oral Tablet 12/10/2023 Unknown ORAL ONCE A DAY 1000 MILLIGRAMS 083247 RxNorm TAKE 1000 MILLIGRAMS ORAL ONCE A DAY metFORMIN HCl 500MG Oral Tablet 12/10/2023 Unknown ORAL ONCE A DAY 500 MILLIGRAMS 061689 RxNorm TAKE 500 MILLIGRAMS ORAL ONCE A [...] RxNorm ASPIRIN Active 1191 RxNorm QUINAPRIL Active 46043 RxNorm QUINAPRIL Active 77448 RxNorm No Known Drug Allergies Active [id number] SNOMED-CT No Known Drug Allergies Active 483183899 SNOMED-CT No Known Allergies Active 531858470 SNO MED-CT Plan of Treatment Colonoscopy 08/27/2023 Sigmoidoscopy Flexible 12/10/2023 Encounters Encounter Diagnosis Start Date Code Code Sys tem Ulcerative colitis, unspecified, without complications 07/20/2023 SNOMED-CT Personal Care Team Section Performer Name Performer Role Active Date Inactive Da te
== END 2024-05-20 10:06 | disposition home or self-care (01) ==
PROVIDERS: PCP Family Medicine; Visit Provider Family Medicine
DX: R60.0 Localized edema (principal); E78.00 Pure hypercholesterolemia, unspecified; Z12.5 Encounter for screening for malignant neoplasm of prostate; E11.9 Type 2 diabetes mellitus without complications
CPT/HCPCS: 36415; 80053; 80061; 83036; 84153; 85025; G0103